=== PATIENT | female | born 1975 | race Caucasian/White ===

== ENCOUNTER → 2017-05-18 | Outpatient (CLI) | payer OTHER ==
--- NOTE | 2017-05-18 17:55 | Diagnostic Imaging Report ---
PROCEDURE: US Abdomen, limited. TECHNIQUE: Multiple real-time grayscale images were obtained over the abdomen in various projections. INDICATION: Right upper quadrant pain. Nausea and vomiting. FINDINGS: The pancreas is largely obscured by bowel gas. The liver is fairly homogeneous with hyperechogenicity and attenuation of the ultrasound beam suggestive of underlying hepatitis or fatty infiltration. There is no focal hepatic mass. Overall, liver measurement of 18 cm craniocaudal diagonal dimension is borderline enlarged at the upper limits of normal. The gallbladder demonstrates no stones, wall thickening or pericholecystic fluid. Sonographic Ryan's sign is reportedly negative. The right kidney is 9.8 cm in length with a 1.3 cm cyst seen in the upper pole. No fluid collection in the upper right abdomen seen. IMPRESSION: Prominent liver size with increased echogenicity may relate to fatty infiltration or hepatitis. Dictated by: Dictated on workstation # [id number]
--- NOTE | 2017-05-18 20:09 | Diagnostic Imaging Report ---
Bilateral screening mammogram. The current study was also evaluated with a Computer Aided Detection (CAD) system. INDICATION: Screening. No current complaints stated on the questionnaire. COMPARISON: None. This is a baseline exam. FINDINGS: The breasts are composed of heterogeneously dense parenchyma which may decrease mammographic sensitivity. No mass, architectural distortion, or suspicious cluster of calcifications seen. IMPRESSION: Dense breasts with no definite underlying focal lesion seen. Annual screening mammogram is recommended. ACR BI-RADS Category 2: Benign findings. Result letter will be mailed to the patient. Note: At least 10% of breast cancer is not imaged by mammography. Dictated by: Dictated on workstation # [id number]
== END ==
LOC: RAD 08:02
PROVIDERS: ATTEND Nurse Practitioner Adult Health
DX: R16.0 Hepatomegaly, not elsewhere classified (principal); Z12.31 Encounter for screening mammogram for malignant neoplasm of breast
CPT/HCPCS: 76705; 77067

== ENCOUNTER 2017-06-19 05:47 | Outpatient (CLI) | payer OTHER ==
[~2017-06-19] VITALS: Ht 175.3 cm; Wt 127.0 kg
[2017-06-19] MEDS ORDERED: DULO60CA6 PO ×2 (10:32)
[2017-06-19] MEDS ORDERED: HYDR-3816 PO ×2 (10:32)
[2017-06-19] MEDS ORDERED: ZOLP5TAB PO ×2 (10:32)
[2017-06-20] MEDS ORDERED: PANT40TA2 PO ×2 (11:07)
[2017-06-20] MEDS ORDERED: SUCR1TAB36 PO ×2 (11:07)
== END 2017-06-19 10:54 ==
LOC: PREOP 05:47
PROVIDERS: ATTEND Surgery
DX: Z01.818 Encounter for other preprocedural examination (principal); R11.2 Nausea with vomiting, unspecified; K21.9 Gastro-esophageal reflux disease without esophagitis

== ENCOUNTER 2017-06-20 09:15 | Day surgery (SDC) | payer OTHER ==
[~2017-06-20] VITALS: Ht 175.3 cm; Wt 127.0 kg
[~2017-06-20 09:15] MED LIST: DULO60CA6 PO; HYDR-3816 PO; ZOLP5TAB PO
[2017-06-20 09:20] VITALS: BP 129/97
[2017-06-20] MEDS ORDERED: LACTATED RINGERS 1,000 ML IV STA (09:26)
[2017-06-20] MEDS ORDERED: HURRICAINE EXT TUBE (BENZOCAINE) XX PRN (09:30)
[2017-06-20] MEDS ORDERED: proPOfol 200 MG/20 ML (DIPRIVAN) VIAL IV ONE ×2 (10:38→10:54)
[2017-06-20] MEDS ORDERED: LIDOCAINE PF 2% 5 ML (XYLOCAINE) VIAL ONE (10:38)
--- NOTE | 2017-06-20 10:48 | Progress Note-Pre Operative ---
Pre-Operative Progress Note H&P Reviewed The H&P was reviewed, patient examined and no changes noted. Date Seen by Provider: Jun 20, 2017 Time Seen by Provider: 10:47 Date H&P Reviewed: Jun 20, 2017 Time H&P Reviewed: 10:47 Pre-Operative Diagnosis: gerd, epigastric abdominal pain HOLLIE GUERRERO DO Jun 20, 2017 10:48
[2017-06-20] MEDS ORDERED: SUCR1TAB36 PO ×2 (11:07)
[2017-06-20] MEDS ORDERED: PANT40TA2 PO ×2 (11:07)
--- NOTE | 2017-06-20 11:11 | Progress Note-Post Operative ---
Post-Operative Progess Note Surgeon (s)/Event Specialist (s) Surgeon HOLLIE GUERRERO DO Event Specialist: na Pre-Operative Diagnosis gerd, epigastric abdominal pain Post-Operative Diagnosis antral ulcer and erosions, gastritis Procedure & Operative Findings Date of Procedure 06/20/17 Procedure Performed/Findings egd c biopsies Anesthesia Type per enamel finisher Estimated Blood Loss Estimated blood loss (mL): scant Specimens/Packing Specimens Removed antral ulcer, antrum HOLLIE GUERRERO DO Jun 20, 2017 11:11
--- NOTE | 2017-06-20 11:11 | Discharge Inst-Simple/Standard ---
Discharge Inst-Standard Patient Instructions/Follow Up Plan of Care/Instructions/FU: Follow up with Dr. Torres in 3 weeks Take medication as directed/. Activity as Tolerated: Yes Discharge Diet: No Restrictions CELINA AVILES APRN Jun 20, 2017 11:11
[2017-06-20 11:20] VITALS: BP 129/97
--- NOTE | 2017-06-20 11:46 | OPERATIVE REPORT ---
DATE OF SERVICE: 06/20/2017 PREOPERATIVE DIAGNOSIS: 1. Gastroesophageal reflux disease. 2. Epigastric abdominal pain. POSTOPERATIVE DIAGNOSIS: 1. Antral ulcers and erosions. 2. Gastritis. PROCEDURE: EGD with biopsies. SURGEON: Hollie Torres DO ANESTHESIA: Per HAIRSPRING ADJUSTER. ESTIMATED BLOOD LOSS: Scant. SPECIMENS: Antral ulcer and biopsy in antrum. INDICATIONS: The patient is a 42-year-old female who has been having epigastric abdominal pain, nausea, vomiting from time to time and reflux symptoms. She understands risks and benefits of procedure and wished to proceed with procedure. Consent was signed and in the chart. PROCEDURE: The patient was taken to the endoscopy suite, placed in left lateral recumbent position. Timeout was performed. Scope was inserted in mouth, down into esophagus, stomach and into the duodenum without difficulty. The duodenum had just very slight erythematous changes. There were no polyps, masses or ulcerations. Scope was slowly retracted back into the stomach. In the antrum, noting a small ulcer and then a couple small erosions, biopsy of the ulcer was obtained. Biopsy of the antrum was obtained as well. There were also erythematous changes throughout this area as well. Scope was retroflexed noting no other pathology. Scope was returned to its normal position, slowly withdrawn to the distal esophagus noting no polyps, masses or ulcerations. Scope was slowly retracted back until completely removed, noting no other pathology. RECOMMENDATIONS: The patient will be started on Protonix 40 mg twice a day for two weeks and then once a day from then on. She will also be started on Carafate 1 gram four times a day. Will have her return to the clinic in 3 weeks to discuss pathology and see how she is doing at that time. If any change in condition, she should be reevaluated at that time. Job ID: [id number] DocumentID: [id number] Dictated Date: 06/20/2017 11:13:38 Electrical Technician Date: 06/20/2017 11:45:57 Dictated By: HOLLIE TORRES DO
== END 2017-06-20 11:40 | disposition home or self-care (01) ==
LOC: ENDO 09:15
PROVIDERS: ATTEND Surgery
DX: K25.9 Gastric ulcer, unspecified as acute or chronic, without hemorrhage or perforation (principal); K29.70 Gastritis, unspecified, without bleeding; F32.9 Major depressive disorder, single episode, unspecified; F41.9 Anxiety disorder, unspecified; E66.01 Morbid (severe) obesity due to excess calories; Z68.41 Body mass index [BMI] 40.0-44.9, adult; G56.21 Lesion of ulnar nerve, right upper limb; Z79.899 Other long term (current) drug therapy

== ENCOUNTER 2018-01-19 23:50 | Emergency (ER) | payer OTHER ==
[~2018-01-19] VITALS: Ht 177.8 cm; Wt 133.8 kg
[~2018-01-19 23:50] MED LIST changes: +HYDR-34 PO; -HYDR-3816 PO; +PANT40TA2 PO; +SUCR1TAB36 PO
[2018-01-20] MEDS ORDERED: BENZ-13 PO (00:49)
--- NOTE | 2018-01-20 00:50 | ED Cough/URI ---
General Chief Complaint: Cough/Cold/Flu Symptoms Stated Complaint: COUGH,CONGESTION,BURNING IN CHEST Nursing Triage Note: PT PRESENTS TO ER WITH COMPLAINT OF COUGH, CONGESTION X1 WEEK. HAS BEEN SEEN 3 TIMES FOR SYMPTOMS. WAS PUT ON FLONASE AND ZYRTEC. SEEN EARLIER TODAY AND WAS PUT ON DOXYCYCLINE. Source: patient, other Exam Limitations: no limitations History of Present Illness Date Seen by Provider: Jan 20, 2018 Time Seen by Provider: 00:39 Initial Comments Patient resists ER by private conveyance with chief complaint of for one week she's had a nagging cough, cold that everybody in the family had. She finally broke and went to see a doctor at [facility] today and they started her on doxycycline. She had some sweats but notes objective fever last night. What concerns her tonight is she has had such a dry nagging cough she has not been able to get any sleep and wants know if we have anything for that. No history of COPD, asthma or tobaccoism. Allergies and Home Medications Allergies Coded Allergies: ciprofloxacin (Verified Allergy, Unknown, HIVES, 06/19/17) Home Medications Duloxetine HCl 60 Mg Capsule.dr, 60 MG PO HS, (Reported) Hydrocodone Bit/Acetaminophen 1 Each Tablet, 1 EACH PO TID PRN for PAIN-MILD TO MODERATE, (Reported) Pantoprazole Sodium 40 Mg Tablet.dr, 40 MG PO DAILY Take medication twice a day for 2 weeks and then once a day after that. Prescribed by: CELINA ISAACS on 06/20/17 1107 Sucralfate 1 Gm Tablet, 1 GM PO QID Prescribed by: CELINA ISAACS on 06/20/17 1107 Zolpidem Tartrate 5 Mg Tablet, 5 MG PO HS, (Reported) Patient Home Medication List Home Medication List Reviewed: Yes Constitutional: chills, diaphoresis, No fever, No malaise EENTM: No hearing loss, No ear pain Respiratory: cough, No phlegm, No short of breath Cardiovascular: No chest pain, No palpitations Gastrointestinal: No abdominal pain, No nausea Genitourinary: No discharge, No dysuria Past Nxpping-Zebibs-Lcwxkn Hx Patient Social History Alcohol Use: Denies Use Recreational Drug Use: No Smoking Status: Former Smoker Former Smoker, Quit: Jun 19, 2014 Recent Foreign Travel: No Contact w/Someone Who Travel: No Recent Infectious Disease Expo: No Recent Hopitalizations: No Seasonal Allergies Seasonal Allergies: No Surgeries History of Surgeries: Yes Surgeries: Hysterectomy, 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 Respiratory History of Respiratory Disorde: No Cardiovascular History of Cardiac Disorders: No Neurological History of Neurological Disord: No Gastrointestinal History of Gastrointestinal Di: Yes (N/V) Gastrointestinal Disorders: Gastroesophageal Reflux Musculoskeletal History of Musculoskeletal Dis: No Endocrine History of Endocrine Disorders: No Cancer History of Cancer: No Psychosocial History of Psychiatric Problem: Yes Behavioral Health Disorders: Anxiety, Depression Integumentary History of Skin or Integumenta: Yes Skin/Integumentary Disorders: Eczema Blood Transfusions History of Blood Disorders: No Physical Exam Vital Signs Vital Signs - First Documented 01/20/18 00:13 Temp 98.3 Pulse 84 Resp 20 B/P (MAP) 122/73 (89) Pulse Ox 94 O2 Delivery Room Air Capillary Refill : Less Than 3 Seconds General Appearance: WD/WN, no apparent distress Eyes: Bilateral Eye Normal Inspection, Bilateral Eye PERRL, Bilateral Eye EOMI HEENT: PERRL/EOMI, pharynx normal Neck: non-tender, supple, normal inspection Respiratory: chest non-tender, lungs clear, normal breath sounds, no respiratory distress, no accessory muscle use Cardiovascular: normal peripheral pulses, regular rate, rhythm, no edema Progress/Results/Core Measures Suspected Sepsis Recent Fever Within 48 Hours: No Infection Criteria Present: None New/Unexplained Altered Menta: No Sepsis Screen: No Definite Risk Sepsis Diagnosis: SIRS Temperature:98.3 Pulse: 84 Respiratory Rate: 20 Blood Pressure 122 /73 Mean: 89 Results/Orders Vital Signs/I&O Vital Sign - Last 12Hours 01/20/18 00:13 Temp 98.3 Pulse 84 Resp 20 B/P (MAP) 122/73 (89) Pulse Ox 94 O2 Delivery Room Air Capillary Refill : Less Than 3 Seconds Blood Pressure Mean: 89 Departure Impression Impression: Primary Impression: Upper respiratory infection Qualified Codes: J06.9 - Acute upper respiratory infection, unspecified Disposition: 01 HOME, SELF-CARE Condition: Stable Departure-Patient Inst. Decision time for Depature: 00:48 Referrals: ES ELIAS DO (PCP) Primary Care Physician JASIEL JACOBS (Family) Primary Care Physician Patient Instructions: Bacterial Upper Respiratory Infection, Adult (DC) Add. Discharge Instructions: Drink lots of fluids. Get a humidifier. Use Vicks or Mentholatum. Continue to use the Flonase, Zyrtec and Benadryl as needed. Use the doxycycline as it was prescribed. He can curing pickling packer the Tessalon Perles at the pharmacy and take one capsule every 6 hours as needed for cough. Keep the heat turned down in the house. Try [id number] cough drops such as [place]. All discharge instructions reviewed with patient and/or family. Voiced understanding. Scripts Benzonatate (Tessalon Perle) 100 Mg Capsule 100 MG PO Q6H Y for COUGH, #30 CAP 0 Refills Prov: CONCEPCION PACHECO 01/20/18 CONCEPCION PACHECO Jan 20, 2018 00:50
[2018-01-20 00:54] VITALS: BP 122/73
== END 2018-01-20 00:54 | disposition home or self-care (01) ==
LOC: EDUNIT# 23:50 → ER 23:53
DX: J06.9 Acute upper respiratory infection, unspecified (principal); F41.9 Anxiety disorder, unspecified; F32.9 Major depressive disorder, single episode, unspecified; K21.9 Gastro-esophageal reflux disease without esophagitis; Z90.710 Acquired absence of both cervix and uterus; Z98.51 Tubal ligation status; Z87.891 Personal history of nicotine dependence; Z88.1 Allergy status to other antibiotic agents
CPT/HCPCS: 99282

== ENCOUNTER 2018-04-06 21:05 | Outpatient (CLI) | payer OTHER ==
[~2018-04-06 21:05] MED LIST changes: +BENZ-13 PO
== END 2018-04-07 06:37 | disposition home or self-care (01) ==
LOC: SLEEP 21:05
PROVIDERS: ATTEND Nurse Practitioner Community Health
DX: G47.33 Obstructive sleep apnea (adult) (pediatric) (principal)
CPT/HCPCS: 95810

== ENCOUNTER 2018-05-31 09:37 | Observation (INO) | payer OTHER ==
[2018-05-31] VITALS (9 sets, daily range): BP systolic 119–143; BP diastolic 84–113
[~2018-05-31] VITALS: Ht 175.3 cm; Wt 131.5 kg
--- OUTSIDE RECORDS SUMMARY | 2018-05-31 09:42 | XMS REPORT ---
Author Author CAITLYN MEJIAS Organization [facility] Address [address] [place] [address] Care Team Providers Care Finding Fastener Name Role Phone CAITLYN MEJAIS Unavailable PROBLEMS Type Condition ICD9-CM Code DAY01-TL Code Onset Dates Condition Status SNOMED Code Problem Irritable bowel syndrome with diarrhea K58.0 Active 502458679 Problem Migraine without aura and with status migrainosus, not intractable G43.001 Active 07464890 Problem Primary insomnia F51.01 Active 4306333 Problem Depression, unspecified depression type F32.9 Active 18242292 Problem Low back pain M54.5 Active 129464120 Problem Observed sleep apnea G47.30 Active 15244423 Problem Other chronic pain G89.29 Active 20239099 Problem Dental caries K02.9 Active 15999253 Problem Pain of left heel M79.672 Active [id number] Problem Mood disorder F39 Active 53140976 Problem Morbid obesity due to excess calories E66.01 Active 878117776 ALLERGIES No Information ENCOUNTERS Encounter Location Date Diagnosis [facility] [id number] [place] [address] 48405- 6906 Jun, [facility] [id number] [place] [address] 17007- 5509 May, Costochondritis M94.0 [facility] [address] 9[address]64- 4215 May, Low back pain M54.5 and Primary insomnia F51.01 [facility] [address] 14623- 5536 Apr, Vaginal candidiasis B37.3 [facility] [id number] [place] [address] 14496 -7686 Apr, Vaginal candidiasis B37.3 [facility] [id number] [place] [address] 76450 -[phone] 11 Apr, 2018 Acute non-recurrent maxillary sinusitis J01.00 [facility] [id number] [place] [address] 75159- 5010 Apr, [facility] [id number] [place] [address] 64752- 3284 06 Apr, 2018 Primary insomnia F51.01 [facility] [id number] [place] [address] 81498 -9623 05 Apr, 2018 Sore throat J02.9 ; Seasonal allergic rhinitis, unspecified trigger J30.2 and BMI 40.0-44.9, adult Z68.41 [facility] [id number] [place] [address] 01241- 2936 04 Apr, 2018 Low back pain M54.5 [facility] [address] 34846- 2216 Apr, Pain, dental K08.89 [facility] [address] [id number] March, Dental caries K02.9 [facility] [id number] [place] [address] 66196- 4085 March, [facility] [id number] [place] [address] 19303- 2917 March, [facility] [id number] [place] [address] 20841- 6497 March, [facility] [id number] [place] [address] 99743- 7835 March, Low back pain M54.5 and Primary insomnia F51.01 [facility] [id number] [place] [address] [phone] March, Dental examination Z01.20 [facility] [id number] [place] [address] 60649- 6542 Feb, [facility] [address] [place] [address] 55795- 2327 Feb, Low back pain M54.5 [facility] [id number] [place] [address] [phone] Feb, Dental examination Z01.20 [facility] [id number] [place] [address] 30564- 0226 Feb, Primary insomnia F51.01 [facility] [address] 37618- 7600 Jan, BMI 40.0-44.9, adult Z68.41 and Observed sleep apnea G47.30 [facility] [address] 69284- 4369 Jan, Dental examination Z01.20 [facility] [id number] [place] [address] 41126- 2312 Jan, Dental examination Z01.20 [facility] [id number] [place] [address] 00715- 0444 Jan, Low back pain M54.5 [facility] [id number] [place] [address] 63767- 1790 Jan, Acute laryngopharyngitis J06.0 and BMI 40.0-44.9, adult Z68.41 [facility] [id number] [place] [address] 77223 -7982 08 Jan, 2018 Seasonal allergic rhinitis, unspecified trigger J30.2 and BMI 40.0-44.9, adult Z68.41 [facility] [id number] [place] [address] 24522 -4845 07 Jan, 2018 Viral URI J06.9 ; Seasonal allergic rhinitis, unspecified trigger J30.2 and BMI 40.0-44.9, adult Z68.41 [facility] [id number] [place] [address] 43813- 3765 Jan, [facility] [id number] [place] [address] 58111- 8298 Jan, Primary insomnia F51.01 and Cough R05 [facility] [id number] [place] [address] 70488 -6335 Jan, Viral URI J06.9 [facility] [address] 11091- 9385 Jan, Sacral pain M53.3 [facility] [id number] [place] [address] 42269 -8440 Jan, Nasal congestion R09.81 and BMI 40.0-44.9, adult Z68.41 [facility] [address] 89406- 0505 Dec, [facility] [address] 71576- 6315 Dec, Low back pain M54.5 [facility] [id number] [place] [address] 00244- 9650 Dec, Primary insomnia F51.01 [facility] [address] 18893- 2624 Nov, [facility] [id number] [place] [address] 25782- 7584 Nov, Migraine without aura and with status migrainosus, not intractable G43.001 ; Low back pain M54.5 and Primary insomnia F51.01 [facility] [id number] [place] [address] 97977- 7664 Nov, Routine gynecological examination Z01.419 ; Routine screening for STI (sexually transmitted infection) Z11.3 and HPV in female B97.7 [facility] [id number] [place] [address] 25309- 6185 Oct, Low back pain M54.5 ; Other chronic pain G89.29 ; Pain in right hip M25.551 ; Pain in left hip M25.552 ; Pain in right knee M25.561 and Pain in left knee M25.562 [facility] [id number] [place] [address] 42056- 2181 13 Oct, 2017 Primary insomnia F51.01 [facility] [id number] [place] [address] 67590- 5326 Oct, Low back pain M54.5 [facility] [address] 42204- 6477 Sep, Encounter for immunization Z23 [facility] [address] 46541- 5598 Aug, Low back pain M54.5 and Primary insomnia F51.01 [facility] [id number] [place] [address] 66516- 5165 10 Aug, 2017 Low back pain M54.5 and Primary insomnia F51.01 [facility] [address] 38158 -4432 05 Aug, 2017 Gastroenteritis and colitis, viral A08.4 [facility] [address] 03341- 1461 04 Aug, 2017 [facility] [id number] [place] [address] 90229- 1248 03 Aug, 2017 Hot flashes R23.2 ; Morbid obesity due to excess calories E66.01 and Mood disorder F39 [facility] [id number] [place] [address] 80020- 8685 02 Aug, 2017 Hot flashes R23.2 ; Morbid obesity due to excess calories E66.01 and Mood disorder F39 [facility] [id number] [place] [address] 62166- 0455 07 Jul, 2017 Low back pain M54.5 [facility] [id number] [place] [address] 11310 -1447 06 Jul, 2017 Lipoma of right lower extremity D17.23 and Acute left- sided thoracic back pain M54.6 [facility] [id number] [place] [address] 66615- 4139 Jun, Low back pain M54.5 [facility] [id number] [place] [address] 75228- 1107 May, Low back pain M54.5 [facility] [address] 14632- 2501 Apr, Right upper quadrant pain R10.11 ; Depression, unspecified depression type F32.9 ; Low back pain M54.5 ; Primary insomnia F51.01 ; Irritable bowel syndrome with diarrhea K58.0 ; Migraine without aura and with status migrainosus, not intractable G43.001 and Breast cancer screening Z12.39 [facility] [id number] [place] [address] 11932- 5266 Apr, [facility] [address] 56671- 7344 Apr, Migraine without aura and with status migrainosus, not intractable G43.001 [facility] [id number] [place] [address] 14471- 6623 March, [facility] [id number] [place] [address] 26059- 9585 Feb, [facility] [id number] [place] [address] 56675- 1839 Feb, [facility] [id number] [place] [address] 85535 -6629 Feb, Sore throat J02.9 and Acute upper respiratory infection, unspecified J06.9 [facility] [id number] [place] [address] 30748- 5321 Feb, Dental examination Z01.20 and Supereruption K00.6 [facility] [id number] [place] [address] 54634 -8923 Feb, Needlestick injury accident W27.3XXA and Employee exposure to blood Z57.8 [facility] [id number] [place] [address] 23378- 9776 05 Feb, 2017 Dental examination Z01.20 [facility] [id number] [place] [address] 81740- 1144 28 Dec, 2016 Low back pain M54.5 [facility] [address] 71410- 4228 27 Dec, 2016 Acute upper respiratory infection, unspecified J06.9 and Other viral agents as the cause of diseases classified elsewhere B97.89 [facility] [address] [id number] Dec, 2016 Dental examination Z01.20 [facility] [id number] [place] [address] 31589 -7929 16 Dec, 2016 Gastroenteritis K52.9 [facility] [address] 87406- 6527 10 Dec, 2016 Plantar fasciitis of left foot M72.[address] 63224- 5306 01 Dec, 2016 Low back pain M54.5 [facility] [id number] [place] [address] 67509- 8229 Nov, Depression, unspecified depression type F32.9 ; Low back pain M54.5 ; Primary insomnia F51.01 ; Irritable bowel syndrome with diarrhea K58.0 ; Pain of left heel M79.672 and Migraine without aura and with status migrainosus, not intractable G43.[address] 99614- 4234 Nov, Acute pain of right knee M25.561 and Primary insomnia F51.01 [facility] [address] [place] [id number] [place] [address] 85437- 7870 Oct, [facility] [address] [place], [place] [address] [address]- 4441 Oct, Urinary pain R30.9 [facility] [id number] [place] [address] 27748 -0256 Oct, Acute recurrent maxillary sinusitis J01.01 [facility] [id number] [place] [address] 79242- 4118 Sep, Acute pain of right knee M25.561 [facility] [address] 20075- 0702 Sep, [facility] [address] 07013- 7704 Sep, Arthralgia, unspecified joint M25.50 [facility] [address] 24597- 6992 Sep, Hives L50.9 and Arthralgia, unspecified joint M25.50 [facility] [id number] [place] [address] 29752- 1089 16 Sep, 2016 [facility] [id number] [place] [address] 36809- 1056 15 Sep, 2016 Depression, unspecified depression type F32.9 ; Primary insomnia F51.01 ; Irritable bowel syndrome with diarrhea K58.0 ; Encounter to establish care Z76.89 and Increased urinary frequency R35.0 [facility] [id number] [place] [address] 52018 -8850 05 Sep, 2016 Acute suppurative otitis media of right ear without spontaneous rupture of tympanic membrane, recurrence not specified H66.001 and Acute non-recurrent maxillary sinusitis J01.00 [facility] [id number] [place] [address] 25293 -7777 03 Sep, 2016 Cough R05 [facility] [id number] [place] [address] [id number] Aug, Encounter for immunization Z23 [facility] [place] [address] 86737- 2546 Aug, [facility] [address] [facility] [id number] [address] -[address]46 Aug, Kyphosis of cervical region, unspecified kyphosis type M40.202 [address] [id number] Jul, Low back pain M54.5 and Depression, unspecified depression type F32.9 [facility] [address] [place] [address] [id number] [phone] Jun, Strep throat J02.0 [address] [place] [address] [id number] Jun, Dental examination Z01.20 [address] [id number] May, [place] [id number] [place] [address] [phone] Apr, [place] [id number] [place] [address] [id number] March, Depression, unspecified depression type F32.9 [address] [place] [address] [id number] Feb, Routine lab draw Z00.00 ; Obesity E66.9 and Swelling of ankle M25.[address] [place] [address] [id number] Jan, GE (gastroenteritis) K52.9 [address] [place] [address] [id number] Nov, Sinusitis J32.9 ; Allergic rhinitis J30.9 and Otitis externa, left H60.[address] [place] [address] [phone] Sep, Cough R05 IMMUNIZATIONS No Known Immunizations SOCIAL HISTORY Never Assessed REASON FOR VISIT Controlled Med Refill PLAN OF CARE VITAL SIGNS MEDICATIONS Medication Instructions Dosage Frequency Start Date End Date Duration Status Hydrocodone-Acetaminophen 7.5-325 MG Orally 3 times a day 1 tablet as needed 8h Jan, 28 days Active RESULTS No Results PROCEDURES No Known procedures INSTRUCTIONS MEDICATIONS ADMINISTERED No Known Medications MEDICAL (GENERAL) HISTORY Type Description Date Medical History irritable bowel syndrome Medical History depression Medical History anxiety Medical History chronic idiopathic hives Surgical History tubal ligation 1999 Surgical History partial hysterectomy s/p enlarged uterus due to fibroids, excessive bleeding 2001 Surgical History colonoscopy--polyps 2011 Hospitalization History childbirth, surgeries Hospitalization History kidney infection during 1993
--- OUTSIDE RECORDS SUMMARY | 2018-05-31 09:43 | XMS REPORT ---
Author Author XIANG JERNIGAN [facility] Address [address] [place] [address] Care Team Providers Care Training And Development Assistant Name Role Phone XIANG JERNIGAN Unavailable PROBLEMS Type Condition ICD9-CM Code AAA02-SO Code Onset Dates Condition Status SNOMED Code Problem Irritable bowel syndrome with diarrhea K58.0 Active 002226235 Problem Migraine without aura and with status migrainosus, not intractable G43.001 Active 21765811 Problem Primary insomnia F51.01 Active 9963018 Problem Depression, unspecified depression type F32.9 Active 72734429 Problem Low back pain M54.5 Active 921023624 Problem Observed sleep apnea G47.30 Active 99865294 Problem Other chronic pain G89.29 Active 94071302 Problem Dental caries K02.9 Active 26771746 Problem Pain of left heel M79.672 Active 5403982893530539 Problem Mood disorder F39 Active 99678041 Problem Morbid obesity due to excess calories E66.01 Active 295491213 ALLERGIES Substance Reaction Event Type Date Status Ciprofloxacin hives Drug Allergy Jan, Active ENCOUNTERS Encounter Location Date Diagnosis [facility] [id number] [address] Jun, [facility] [id number] [place] [address]68[address] 9739 May, Costochondritis M94.0 [facility] [id number] [address] May, Low back pain M54.5 and Primary insomnia F51.01 [facility] [address] [address] Apr, Vaginal candidiasis B37.3 [facility] [address] [address] Apr, Vaginal candidiasis B37.3 [facility] [id number] [place] [address] Apr, Acute non-recurrent maxillary sinusitis J01.00 [facility] [id number] [place] [address] 33225- 9813 Apr, [facility] [address] [address] Apr, Primary insomnia F51.01 [facility] [id number] [place] [address] 58702 [address]0185 05 Apr, 2018 Sore throat J02.9 ; Seasonal allergic rhinitis, unspecified trigger J30.2 and BMI 40.0-44.9, adult Z68.41 [facility] [id number] [place] [address] 95301- 7983 Apr, Low back pain M54.5 [facility] [id number] [place] [address] 17601- 1324 Apr, Pain, dental K08.89 [facility] [address] [id number] March, Dental caries K02.9 [facility] [id number] [place] [address] 80006- 8412 March, [facility] [id number] [place] [address] 33051- 7285 March, [facility] [id number] [place] [address] 87094- 0835 March, [facility] [address] [address] March, Low back pain M54.5 and Primary insomnia F51.01 [facility] [id number] [place] [address] [id number] March, Dental examination Z01.20 [facility] [address] [place] [address] Feb, [facility] [address] [address] Feb, Low back pain M54.5 [facility] [id number] [place] [address] [id number] Feb, Dental examination Z01.20 [facility] [address] [address] Feb, Primary insomnia F51.01 [place] [address] [address] Jan, BMI 40.0-44.9, adult Z68.41 and Observed sleep apnea G47.30 [place] [address] [address]- [address]177 Jan, Dental examination Z01.20 [facility] [address] [address] Jan, Dental examination Z01.20 [facility] [address] 0[address]23- 4295 Jan, Low back pain M54.5 [facility] [id number] [place] [address] 46176- 6168 Jan, Acute laryngopharyngitis J06.0 and BMI 40.0-44.9, adult Z68.41 [facility] [id number] [place] [address] 35650 -5661 Jan, Seasonal allergic rhinitis, unspecified trigger J30.2 and BMI 40.0-44.9, adult Z68.41 [facility] [address] [address] 07 Jan, 2018 Viral URI J06.9 ; Seasonal allergic rhinitis, unspecified trigger J30.2 and BMI 40.0-44.9, adult Z68.41 [place] [id number] [place] [address] 96475- 6628 Jan, [place] [id number] [place] [address] 75228- 6021 Jan, Primary insomnia F51.01 and Cough R05 [facility] [id number] [place] [address] 87889 -3212 Jan, Viral URI J06.9 [place] [address] 61205- [address]70 Jan, Sacral pain M53.3 [facility] [address] [address] Jan, Nasal congestion R09.81 and BMI 40.0-44.9, adult Z68.41 [place] [address] 87555- 3563 Dec, [place] [address] 39227- [address]67 Dec, Low back pain M54.5 [place] [address] 82220- [address]88 Dec, Primary insomnia F51.01 [place] [id number] [place] [address] 37238- 7063 Nov, [place] [id number] [place] [address] 11330- 2776 Nov, Migraine without aura and with status migrainosus, not intractable G43.001 ; Low back pain M54.5 and Primary insomnia F51.01 [place] [id number] [place] [address] 15492- 0410 Nov, Routine gynecological examination Z01.419 ; Routine screening for STI (sexually transmitted infection) Z11.3 and HPV in female B97.7 [place] [id number] [place] [address] 19908- 0055 Oct, Low back pain M54.5 ; Other chronic pain G89.29 ; Pain in right hip M25.551 ; Pain in left hip M25.552 ; Pain in right knee M25.561 and Pain in left knee M25.562 [place] [id number] [place] [address] 04846- 7792 13 Oct, 2017 Primary insomnia F51.01 [place] [address] 61387- 4724 Oct, Low back pain M54.5 [place] [address] 93426- 4343 Sep, Encounter for immunization Z23 [place] [address] 99972- 1376 Aug, Low back pain M54.5 and Primary insomnia F51.01 [place] [address] 47065- 7570 Aug, Low back pain M54.5 and Primary insomnia F51.01 [facility] [address] [address]39 [address] 05 Aug, 2017 Gastroenteritis and colitis, viral A08.4 [place] [id number] [place] [address] 44835- 8562 04 Aug, 2017 [place] [id number] [place] [address] 93959- 9693 03 Aug, 2017 Hot flashes R23.2 ; Morbid obesity due to excess calories E66.01 and Mood disorder F39 [place] [id number] [place] [address] 34855- 2447 02 Aug, 2017 Hot flashes R23.2 ; Morbid obesity due to excess calories E66.01 and Mood disorder F39 [place] [id number] [place] [address] 86879- 5044 07 Jul, 2017 Low back pain M54.5 [facility] [id number] [place] [address] 40530 -3887 Jul, Lipoma of right lower extremity D17.23 and Acute left- sided thoracic back pain M54.6 [place] [id number] [place] [address] 75874- 7379 Jun, Low back pain M54.5 [place] [id number] [place] [address] 58952- 5648 May, Low back pain M54.5 [place] [id number] [place] [address] 65550- 7387 Apr, Right upper quadrant pain R10.11 ; Depression, unspecified depression type F32.9 ; Low back pain M54.5 ; Primary insomnia F51.01 ; Irritable bowel syndrome with diarrhea K58.0 ; Migraine without aura and with status migrainosus, not intractable G43.001 and Breast cancer screening Z12.39 [place] [id number] [place] [address] 55569- 7445 Apr, [place] [id number] [place] [address] 34209- 1741 Apr, Migraine without aura and with status migrainosus, not intractable G43.001 [place] [id number] [place] [address] 14919- 3456 March, [place] [id number] [place] [address] 71471- 6935 Feb, [place] [id number] [place] [address] 77822- 5574 Feb, [facility] [id number] [place] [address] 01262 -0242 Feb, Sore throat J02.9 and Acute upper respiratory infection, unspecified J06.9 [place] [id number] [place] [address] 78074- 5858 Feb, Dental examination Z01.20 and Supereruption K00.6 [facility] [address] [place] [address] Feb, Needlestick injury accident W27.3XXA and Employee exposure to blood Z57.8 [facility] [address] 02603- 3030 Feb, Dental examination Z01.20 [facility] [id number] [place] [address] 94640- 7359 28 Dec, 2016 Low back pain M54.5 [place] [address] 50551- 5856 27 Dec, 2016 Acute upper respiratory infection, unspecified J06.9 and Other viral agents as the cause of diseases classified elsewhere B97.89 [facility] [address] [id number] Dec, 2016 Dental examination Z01.20 [facility] [address] 33120 -4898 16 Dec, 2016 Gastroenteritis K52.9 [place] [address] 22706- 8052 10 Dec, 2016 Plantar fasciitis of left foot M72.2 [place] [address] 17348- 2863 01 Dec, 2016 Low back pain M54.5 [place] [id number] [place] [address] 79354- 8924 Nov, Depression, unspecified depression type F32.9 ; Low back pain M54.5 ; Primary insomnia F51.01 ; Irritable bowel syndrome with diarrhea K58.0 ; Pain of left heel M79.672 and Migraine without aura and with status migrainosus, not intractable G43.001 [place] [id number] [place] [address] 84998- 4493 Nov, Acute pain of right knee M25.561 and Primary insomnia F51.01 [place] [address] 61959- 8568 Oct, [facility] [address] [place] [address] 58579- 5969 Oct, Urinary pain R30.9 [facility] [id number] [place] [address] 98439 -4219 Oct, Acute recurrent maxillary sinusitis J01.01 [facility] [address] 76696- 0660 Sep, Acute pain of right knee M25.561 [place] [id number] [place] [address] 09401- 6939 Sep, [facility] [address] 47231- 6988 Sep, Arthralgia, unspecified joint M25.50 [place] [address] 86448- 7427 Sep, Hives L50.9 and Arthralgia, unspecified joint M25.50 [facility] [id number] [place] [address] 97000- 2462 16 Sep, 2016 [place] [id number] [place] [address] 27240- 6348 15 Sep, 2016 Depression, unspecified depression type F32.9 ; Primary insomnia F51.01 ; Irritable bowel syndrome with diarrhea K58.0 ; Encounter to establish care Z76.89 and Increased urinary frequency R35.0 [facility] [id number] [place] [address] 61741 -6667 05 Sep, 2016 Acute suppurative otitis media of right ear without spontaneous rupture of tympanic membrane, recurrence not specified H66.001 and Acute non-recurrent maxillary sinusitis J01.00 [facility] [address] [place] [address] 68851 -2262 03 Sep, 2016 Cough R05 [facility] [id number] [place] [address] [id number] Aug, Encounter for immunization Z23 [facility] [address] [facility] [id number] [address] Aug, [facility] [id number] [place] [address] 461604 -7472 Aug, Kyphosis of cervical region, unspecified kyphosis type M40.202 [id number] [place] [address] [id number] Jul, Low back pain M54.5 and Depression, unspecified depression type F32.9 [facility] [address] [place] [address] [id number] [place] [address] [id number] Jun, Strep throat J02.0 [address] [id number] [place] [address] [id number] Jun, Dental examination Z01.[address] [id number] May, [address] [id number] Apr, [address] [id number] [place] [address] [phone] March, Depression, unspecified depression type F32.9 [address] [id number] [place] [address] [id number] Feb, Routine lab draw Z00.00 ; Obesity E66.9 and Swelling of ankle M25.[address] [id number] Jan, GE (gastroenteritis) K52.9 [place] [id number] [place] [address] [id number] Nov, Sinusitis J32.9 ; Allergic rhinitis J30.9 and Otitis externa, left H60.92 [place] [id number] [place] [address] [phone] Sep, Cough R05 IMMUNIZATIONS No Known Immunizations SOCIAL HISTORY Never Assessed REASON FOR VISIT congestion/nausea- chest tightness and dry cough JStrasserRN PLAN OF CARE Activity Details Follow Up prn Reason: VITAL SIGNS Height 69 in 2018-01-17 Weight 292.4 lbs 2018-01-17 Temperature 98.9 degrees Fahrenheit 2018-01-17 Heart Rate 78 bpm 2018-01-17 Respiratory Rate 20 2018-01-17 BMI 43.18 kg/m2 2018-01-17 Blood pressure systolic 128 mmHg 2018-01-17 Blood pressure diastolic 84 mmHg 2018-01-17 MEDICATIONS Medication Instructions Dosage Frequency Start Date End Date Duration Status Tessalon Perles 100 mg Orally Three times a day 1 capsule as needed 8h Jan, Active Cymbalta 30 MG Orally Once a day 1 capsule 24h March, Active Ketorolac Tromethamine 10 mg Orally every 6 hrs 1 tablet with food or milk as needed 6h Jan, Jan, 5 day(s) Active Ambien 10 mg Orally Once a day 1 tablet at bedtime as needed 24h Nov, 28 days Active PredniSONE 20 mg Orally Once a day 2 tablets 24h Jan, Jan, 05 days Not-Taking Zyrtec Allergy 10 MG Orally Once a day 1 tablet 24h Jan, Feb, 30 day(s) Active Kpwoohruyf-IDIH-Uikuvjyy 50-325-40 MG Orally every 4 hrs 2 at onset then one every four max 6 daily 4h 25 Sep, 2016 Active Bentyl 10 mg Orally 4 times a day 1 tablet 6h 15 Sep, 2016 Not- Taking Protonix 40 mg Orally Once a day 1 tablet 24h Aug, 30 day(s) Active Cymbalta 60 mg Orally Once a day 1 capsule 24h Aug, 30 day(s) Active Calcium + D3 600-200 MG-UNIT Orally 2 times a day 1 tablet with a meal 12h Active Flonase 50 MCG/ACT Nasally twice a day 1 spray in each nostril 12h Jan, 30 day(s) Active Zofran ODT 4 MG Orally every 8 hrs 1 tablet on the tongue and allow to dissolve 8h Jan, 7 days Active Hydrocodone-Acetaminophen 7.5-325 MG Orally 3 times a day 1 tablet as needed 8h Dec, 28 days Active Fish Oil 1000 MG Orally 2 times a day 1 capsule 12h Active RESULTS No Results PROCEDURES No Known [...]
--- OUTSIDE RECORDS SUMMARY | 2018-05-31 09:43 | XMS REPORT ---
Author Author TOMAS VELÁZQUEZ Organization [facility] Address [address] [place] [address] Care Team Providers Care Bit Shaver Name Role Phone TOMAS VELÁZQUEZ Unavailable PROBLEMS Type Condition ICD9-CM Code QXX17-NK Code Onset Dates Condition Status SNOMED Code Problem Irritable bowel syndrome with diarrhea K58.0 Active 365306480 Problem Migraine without aura and with status migrainosus, not intractable G43.001 Active 02371268 Problem Primary insomnia F51.01 Active 7635510 Problem Depression, unspecified depression type F32.9 Active 96454512 Problem Low back pain M54.5 Active 106197446 Problem Observed sleep apnea G47.30 Active 96919011 Problem Other chronic pain G89.29 Active 18060297 Problem Dental caries K02.9 Active 74759112 Problem Pain of left heel M79.672 Active 0665463885144166 Problem Mood disorder F39 Active 06048180 Problem Morbid obesity due to excess calories E66.01 Active 217809814 ALLERGIES Substance Reaction Event Type Date Status Ciprofloxacin hives Drug Allergy Jan, Active ENCOUNTERS Encounter Location Date Diagnosis [facility] [address] [address] Jun, [facility] [id number] [place] [address] 21654- 1370 May, Costochondritis M94.0 [facility] [address] [address] May, Low back pain M54.5 and Primary insomnia F51.01 [facility] [address] [address] Apr, Vaginal candidiasis B37.3 [facility] [id number] [place] [address] 78607 -2212 Apr, Vaginal candidiasis B37.3 [facility] [id number] [place] [address] 63172 -2672 Apr, Acute non-recurrent maxillary sinusitis J01.00 [facility] [id number] [place] [address] 61711- 3246 Apr, [facility] [address] [address]- [address] Apr, Primary insomnia F51.01 [facility] [id number] [place] [address] 81695 -7861 05 Apr, 2018 Sore throat J02.9 ; Seasonal allergic rhinitis, unspecified trigger J30.2 and BMI 40.0-44.9, adult Z68.41 [facility] [id number] [place] [address] 96951- 5075 Apr, Low back pain M54.5 [facility] [id number] [place] [address] 55755- 0656 Apr, Pain, dental K08.89 [facility] [address] [id number] March, Dental caries K02.9 [facility] [id number] [place] [address] 17174- 9352 March, [facility] [id number] [place] [address] 88510- 5356 March, [facility] [id number] [place] [address] 20291- 5408 March, [facility] [address] [address]- [address] March, Low back pain M54.5 and Primary insomnia F51.01 [facility] [id number] [place] [address] [id number] March, Dental examination Z01.20 [facility] [address] [place] [address] Feb, [facility] [address] 94678- [address]235 Feb, Low back pain M54.5 [facility] [id number] [place] [address] [id number] Feb, Dental examination Z01.20 [facility] [address] [address]- [address] Feb, Primary insomnia F51.01 [place] [facility] [address] [address]- 7511 Jan, BMI 40.0-44.9, adult Z68.41 and Observed sleep apnea G47.30 [facility] [address] [address]- 7022 Jan, Dental examination Z01.20 [facility] [address] 72876- 1025 Jan, Dental examination Z01.20 [facility] [address] 78361- 1645 Jan, Low back pain M54.5 [facility] [id number] [place] [address] 84936- 0307 Jan, Acute laryngopharyngitis J06.0 and BMI 40.0-44.9, adult Z68.41 [facility] [id number] [place] [address] 70695 -2927 Jan, Seasonal allergic rhinitis, unspecified trigger J30.2 and BMI 40.0-44.9, adult Z68.41 [facility] [address] 35854 -6[address] 07 Jan, 2018 Viral URI J06.9 ; Seasonal allergic rhinitis, unspecified trigger J30.2 and BMI 40.0-44.9, adult Z68.41 [facility] [id number] [place] [address] 47103- 9291 Jan, [place] [id number] [place] [address] 02958- 0574 Jan, Primary insomnia F51.01 and Cough R05 [facility] [id number] [place] [address] 04421 -3534 Jan, Viral URI J06.9 [facility] [facility] [address] 93969- 7260 Jan, Sacral pain M53.3 [facility] [address] 14092 -6723 Jan, Nasal congestion R09.81 and BMI 40.0-44.9, adult Z68.41 [facility] [address] 21229- 5369 Dec, [place] [address] 20969- 4256 Dec, Low back pain M54.5 [facility] [address] 14661- 3964 Dec, Primary insomnia F51.01 [facility] [id number] [place] [address] 07019- 2266 Nov, [facility] [id number] [place] [address] 91474- 1961 Nov, Migraine without aura and with status migrainosus, not intractable G43.001 ; Low back pain M54.5 and Primary insomnia F51.01 [facility] [id number] [place] [address] 87034- 5841 Nov, Routine gynecological examination Z01.419 ; Routine screening for STI (sexually transmitted infection) Z11.3 and HPV in female B97.7 [facility] [id number] [place] [address] 65967- 3135 Oct, Low back pain M54.5 ; Other chronic pain G89.29 ; Pain in right hip M25.551 ; Pain in left hip M25.552 ; Pain in right knee M25.561 and Pain in left knee M25.562 [facility] [facility] [id number] [place] [address] 99272- 4494 13 Oct, 2017 Primary insomnia F51.01 [place] [address] 17509- 7106 Oct, Low back pain M54.5 [place] [address] 94310- 7748 Sep, Encounter for immunization Z23 [facility] [address] 47439- 9216 Aug, Low back pain M54.5 and Primary insomnia F51.01 [place] [address] 06356- 2589 Aug, Low back pain M54.5 and Primary insomnia F51.01 [facility] [address] 64298 -5073 05 Aug, 2017 Gastroenteritis and colitis, viral A08.4 [place] [id number] [place] [address] 85908- 7264 04 Aug, 2017 [place] [id number] [place] [address] 98115- 3229 03 Aug, 2017 Hot flashes R23.2 ; Morbid obesity due to excess calories E66.01 and Mood disorder F39 [place] [id number] [place] [address] 40334- 5204 02 Aug, 2017 Hot flashes R23.2 ; Morbid obesity due to excess calories E66.01 and Mood disorder F39 [facility] [id number] [place] [address] 79303- 3969 07 Jul, 2017 Low back pain M54.5 [facility] [id number] [place] [address] 55133 -2967 Jul, Lipoma of right lower extremity D17.23 and Acute left- sided thoracic back pain M54.6 [facility] [place] [id number] [place] [address] 89571- 0443 Jun, Low back pain M54.5 [facility] [id number] [place] [address] 73508- 4422 May, Low back pain M54.5 [facility] [place] [id number] [place] [address] 76736- 5542 Apr, Right upper quadrant pain R10.11 ; Depression, unspecified depression type F32.9 ; Low back pain M54.5 ; Primary insomnia F51.01 ; Irritable bowel syndrome with diarrhea K58.0 ; Migraine without aura and with status migrainosus, not intractable G43.001 and Breast cancer screening Z12.39 [place] [id number] [place] [address] 59938- 7670 Apr, [facility] [place] [id number] [place] [address] 77386- 9482 Apr, Migraine without aura and with status migrainosus, not intractable G43.001 [facility] [id number] [place] [address] 57681- 5386 March, [facility] [id number] [place] [address] 52881- 3544 Feb, [facility] [place] [id number] [place] [address] 07435- 6162 Feb, [facility] [id number] [place] [address] 06348 -2523 Feb, Sore throat J02.9 and Acute upper respiratory infection, unspecified J06.9 [facility] [id number] [place] [address] 02841- 8115 Feb, Dental examination Z01.20 and Supereruption K00.6 [facility] [address] [place] [address] Feb, Needlestick injury accident W27.3XXA and Employee exposure to blood Z57.8 [facility] [address] 18992- 1811 Feb, Dental examination Z01.20 [facility] [id number] [place] [address] 66965- 5916 28 Dec, 2016 Low back pain M54.5 [place] [address] 02284- 9894 27 Dec, 2016 Acute upper respiratory infection, unspecified J06.9 and Other viral agents as the cause of diseases classified elsewhere B97.89 [facility] [address] [id number] 23 Dec, 2016 Dental examination Z01.20 [facility] [address] 92092 -7153 16 Dec, 2016 Gastroenteritis K52.9 [place] [address] 98493- 1877 10 Dec, 2016 Plantar fasciitis of left foot M72.2 [place] [address] 16547- 0292 01 Dec, 2016 Low back pain M54.5 [facility] [place] [id number] [place] [address] 28557- 3147 Nov, Depression, unspecified depression type F32.9 ; Low back pain M54.5 ; Primary insomnia F51.01 ; Irritable bowel syndrome with diarrhea K58.0 ; Pain of left heel M79.672 and Migraine without aura and with status migrainosus, not intractable G43.001 [place] [id number] [place] [address] 32090- 4794 Nov, Acute pain of right knee M25.561 and Primary insomnia F51.01 [place] [address] 39840- 7940 Oct, [facility] [id number] [place] [address] 96728- 3435 Oct, Urinary pain R30.9 [facility] [id number] [place] [address] 03390 -8766 Oct, Acute recurrent maxillary sinusitis J01.01 [facility] [address] 96309- 1460 Sep, Acute pain of right knee M25.561 [place] [id number] [place] [address] 28252- 2185 Sep, [facility] [address] 81365- 3825 Sep, Arthralgia, unspecified joint M25.50 [place] [address] 43409- 7325 Sep, Hives L50.9 and Arthralgia, unspecified joint M25.50 [facility] [id number] [place] [address] 98052- 8118 16 Sep, 2016 [place] [id number] [place] [address] 98898- 8596 15 Sep, 2016 Depression, unspecified depression type F32.9 ; Primary insomnia F51.01 ; Irritable bowel syndrome with diarrhea K58.0 ; Encounter to establish care Z76.89 and Increased urinary frequency R35.0 [facility] [id number] [place] [address] 91706 -6965 05 Sep, 2016 Acute suppurative otitis media of right ear without spontaneous rupture of tympanic membrane, recurrence not specified H66.001 and Acute non-recurrent maxillary sinusitis J01.00 [facility] [address] [place] [address] 09455 -0989 03 Sep, 2016 Cough R05 [facility] [id number] [place] [address] [phone] Aug, Encounter for immunization Z23 [facility] [address] [facility] [id number] [address] Aug, [facility] [id number] [place] [address] 17412 -9134 04 Aug, 2016 Kyphosis of cervical region, unspecified kyphosis type M40.202 [place] [id number] [place] [address] [phone] Jul, Low back pain M54.5 and Depression, unspecified depression type F32.9 [address] [place] [address] [phone] Jun, Strep throat J02.0 [place] [id number] [place] [address] [phone] Jun, Dental examination Z01.[address] [id number] May, [address] [id number] Apr, [place] [id number] [place] [address] [phone] March, Depression, unspecified depression type F32.[address] [id number] Feb, Routine lab draw Z00.00 ; Obesity E66.9 and Swelling of ankle M25.[address] [id number] Jan, GE (gastroenteritis) K52.9 [place] [id number] [place] [address] [phone] Nov, Sinusitis J32.9 ; Allergic rhinitis J30.9 and Otitis externa, left H60.92 [place] [id number] [place] [address] [phone] Sep, Cough R05 IMMUNIZATIONS No Known Immunizations SOCIAL HISTORY Never Assessed REASON FOR VISIT sick--tcuppettRN, cough and congestion that started last and has sore throat. Chest discomfort from coughing PLAN OF CARE Activity Details Follow Up prn Reason: VITAL SIGNS Height 69 in 2018-01-19 Weight 295 lbs 2018-01-19 Temperature 97.8 degrees Fahrenheit 2018-01-19 Heart Rate 88 bpm 2018-01-19 Respiratory Rate 20 2018-01-19 Oximetry 98 % 2018-01-19 BMI 43.56 kg/m2 2018-01-19 Blood pressure systolic 124 mmHg 2018-01-19 Blood pressure diastolic 80 mmHg 2018-01-19 MEDICATIONS Medication Instructions Dosage Frequency Start Date End Date Duration Status Doxycycline Hyclate 100 mg Orally every 12 hrs 1 capsule 12h Jan, Jan, 10 days Active Protonix 40 mg Orally Once a day 1 tablet 24h Aug, 30 day(s) Active Zyrtec Allergy 10 MG Orally Once a day 1 tablet 24h Jan, Feb, 30 day(s) Not-Taking Tessalon Perles 100 mg Orally Three times a day 1 capsule as needed 8h Jan, Active Bentyl 10 mg Orally 4 times a day 1 tablet 6h Sep, Not- Taking Yocdqsepnb-WUBK-Tncrfazw 50-325-40 MG Orally every 4 hrs 2 at onset then one every four max 6 daily 4h 25 Sep, 2016 Active Flonase 50 MCG/ACT Nasally twice a day 1 spray in each nostril 12h Jan, 30 day(s) Active Cymbalta 30 MG Orally Once a day 1 capsule 24h March, Active Fish Oil 1000 MG Orally 2 times a day 1 capsule 12h Active Cymbalta 60 mg Orally Once a day 1 capsule 24h Aug, 30 day(s) Active Ambien 10 mg Orally Once a day 1 tablet at bedtime as needed 24h Nov, 28 days Active Zofran ODT 4 MG Orally every 8 hrs 1 tablet on the tongue and allow to dissolve 8h Jan, 7 days Not-Taking Hydrocodone-Acetaminophen 7.5-325 MG Orally 3 times a day 1 tablet as needed 8h Dec, 28 days Active Calcium + D3 600-200 MG-UNIT Orally 2 times a day 1 tablet with a meal 12h Active RESULTS Name Result Date Reference Range Xray : Chest 2 View (IN HOUSE) 2018-01-19 PROCEDURES Procedure Date Ordered Result Body Site X-RAY EXAM CHEST 2 VIEWS January 19, 2018 INSTRUCTIONS MEDICATIONS ADMINISTERED No Known Medications MEDICAL [...]
--- OUTSIDE RECORDS SUMMARY | 2018-05-31 09:44 | XMS REPORT ---
Author Author BRIONNA MORENO [facility] Address [address] [place] [address] Care Team Providers Care Box Gluer Name Role Phone BRIONNA MORENO Unavailable PROBLEMS Type Condition ICD9-CM Code YCE85-GE Code Onset Dates Condition Status SNOMED Code Problem Irritable bowel syndrome with diarrhea K58.0 Active 635931987 Problem Migraine without aura and with status migrainosus, not intractable G43.001 Active 36230783 Problem Primary insomnia F51.01 Active 2924002 Problem Depression, unspecified depression type F32.9 Active 14988344 Problem Low back pain M54.5 Active 790798136 Problem Observed sleep apnea G47.30 Active 70144088 Problem Other chronic pain G89.29 Active 76061300 Problem Dental caries K02.9 Active 20155709 Problem Pain of left heel M79.672 Active 7452427212931059 Problem Mood disorder F39 Active 08821998 Problem Morbid obesity due to excess calories E66.01 Active 901489797 ALLERGIES No Information ENCOUNTERS Encounter Location Date Diagnosis [facility] [address] [id number] March, [facility] [id number] [place] [id number] March, [facility] [address] [address] March, Low back pain M54.5 and Primary insomnia F51.01 [facility] [address] [id number] March, Dental examination Z01.20 [facility] [id number] [place] [address] 58736- 9509 Feb, [facility] [address] [address]- [address] Feb, Low back pain M54.5 [facility] [id number] [id number] Feb, Dental examination Z01.20 [facility] [address] [place] [address] 46295- 9495 Feb, Primary insomnia F51.01 [facility] [id number] [place] [address] 32048- 8530 Jan, BMI 40.0-44.9, adult Z68.41 and Observed sleep apnea G47.30 [facility] [id number] [place] [address] 48521- 2707 Jan, Dental examination Z01.20 [facility] [id number] [place] [address] 75419- 3532 Jan, Dental examination Z01.20 [facility] [id number] [place] [address] 49417- 9287 Jan, Low back pain M54.5 [facility] [id number] [place] [address] 70426- 4131 Jan, Acute laryngopharyngitis J06.0 and BMI 40.0-44.9, adult Z68.41 [facility] [address] [place] [address] 37448 -1415 Jan, Seasonal allergic rhinitis, unspecified trigger J30.2 and BMI 40.0-44.9, adult Z68.41 [facility] [address] [place] [address] 72634 -7285 07 Jan, 2018 Viral URI J06.9 ; Seasonal allergic rhinitis, unspecified trigger J30.2 and BMI 40.0-44.9, adult Z68.41 [facility] [address] [place] [address] 05832- 0622 Jan, [facility] [id number] [place] [address] 50606- 2669 Jan, Primary insomnia F51.01 and Cough R05 [facility] [address] 25[address]0618 Jan, Viral URI J06.9 [place] [address] 12317- 1667 Jan, Sacral pain M53.3 [facility] [address] 6[address]1725 Jan, Nasal congestion R09.81 and BMI 40.0-44.9, adult Z68.41 [place] [address] 36766- 7905 Dec, [facility] [address] 86226- 4878 Dec, Low back pain M54.5 [place] [facility] [address] 54304- 7442 Dec, Primary insomnia F51.01 [place] [address] 05120- 3804 Nov, [facility] [facility] [address] 03369- 1776 Nov, Migraine without aura and with status migrainosus, not intractable G43.001 ; Low back pain M54.5 and Primary insomnia F51.01 [place] [address] 14404- 6217 Nov, Routine gynecological examination Z01.419 ; Routine screening for STI (sexually transmitted infection) Z11.3 and HPV in female B97.7 [place] [address] 68864- 9417 Oct, Low back pain M54.5 ; Other chronic pain G89.29 ; Pain in right hip M25.551 ; Pain in left hip M25.552 ; Pain in right knee M25.561 and Pain in left knee M25.562 [place] [id number] [place] [address] 73495- 8243 13 Oct, 2017 Primary insomnia F51.01 [place] [address] 17180- 3707 Oct, Low back pain M54.5 [place] [address] 88609- 6718 Sep, Encounter for immunization Z23 [place] [address] 51549- 5580 Aug, Low back pain M54.5 and Primary insomnia F51.01 [place] [address] 70771- 9559 10 Aug, 2017 Low back pain M54.5 and Primary insomnia F51.01 [facility] [address] 15141 [address]7325 Aug, Gastroenteritis and colitis, viral A08.4 [facility] [id number] [place] [address] 34080- 9085 04 Aug, 2017 [place] [address] 76745- 0753 03 Aug, 2017 Hot flashes R23.2 ; Morbid obesity due to excess calories E66.01 and Mood disorder F39 [facility] [id number] [place] [address] 64484- 6708 02 Aug, 2017 Hot flashes R23.2 ; Morbid obesity due to excess calories E66.01 and Mood disorder F39 [facility] [id number] [place] [address] 32775- 0844 07 Jul, 2017 Low back pain M54.5 [facility] [id number] [place] [address] 43523 -1739 06 Jul, 2017 Lipoma of right lower extremity D17.23 and Acute left- sided thoracic back pain M54.6 [place] [address] [place] [address] Jun, Low back pain M54.5 [place] [facility] [address] 04859- 6701 May, Low back pain M54.5 [facility] [id number] [place] [address] 94744- 1877 Apr, Right upper quadrant pain R10.11 ; Depression, unspecified depression type F32.9 ; Low back pain M54.5 ; Primary insomnia F51.01 ; Irritable bowel syndrome with diarrhea K58.0 ; Migraine without aura and with status migrainosus, not intractable G43.001 and Breast cancer screening Z12.39 [place] [address] 87552- 7632 Apr, [place] [address] 41511- 3926 Apr, Migraine without aura and with status migrainosus, not intractable G43.001 [facility] [id number] [place] [address] 22490- 1227 March, [place] [facility] [address] 32753- 1189 Feb, [facility] [id number] [place] [address] 84321- 7307 Feb, [facility] [address] 38323 -2499 14 Feb, 2017 Sore throat J02.9 and Acute upper respiratory infection, unspecified J06.9 [place] [address] 99895- 4641 12 Feb, 2017 Dental examination Z01.20 and Supereruption K00.6 [facility] [id number] [place] [address] 33454 -1691 06 Feb, 2017 Needlestick injury accident W27.3XXA and Employee exposure to blood Z57.8 [place] [address] [place] [address] 73883- 4268 05 Feb, 2017 Dental examination Z01.20 [facility] [id number] [place] [address] 88608- 4083 28 Dec, 2016 Low back pain M54.5 [facility] [id number] [place] [address] 25949- 9914 27 Dec, 2016 Acute upper respiratory infection, unspecified J06.9 and Other viral agents as the cause of diseases classified elsewhere B97.89 [facility] [id number] [place] [address] [phone] Dec, 2016 Dental examination Z01.20 [facility] [id number] [place] [address] 52260 -8202 16 Dec, 2016 Gastroenteritis K52.9 [facility] [id number] [place] [address] 44189- 1373 10 Dec, 2016 Plantar fasciitis of left foot M72.2 [facility] [id number] [place] [address] 39063- 9188 Dec, Low back pain M54.5 [facility] [id number] [place] [address] 74861- 1412 Nov, Depression, unspecified depression type F32.9 ; Low back pain M54.5 ; Primary insomnia F51.01 ; Irritable bowel syndrome with diarrhea K58.0 ; Pain of left heel M79.672 and Migraine without aura and with status migrainosus, not intractable G43.001 [facility] [id number] [place] [address] 85616- 4592 Nov, Acute pain of right knee M25.561 and Primary insomnia F51.01 [facility] [id number] [place] [address] 97165- 0746 Oct, [facility] [id number] [place] [address] 48677- 5030 Oct, Urinary pain R30.9 [facility] [address] [place] [address] 38231 -8864 Oct, Acute recurrent maxillary sinusitis J01.01 [place] [id number] [place] [address] 62031- 7833 Sep, Acute pain of right knee M25.561 [place] [facility] [address] [place] [address] 91365- 7198 Sep, [place] [facility] [address] [place] [address] 93826- 3905 Sep, Arthralgia, unspecified joint M25.50 [place] [facility] [id number] [place] [address] 89062- 9129 Sep, Hives L50.9 and Arthralgia, unspecified joint M25.50 [facility] [id number] [place] [address] 11833- 9942 Sep, [facility] [id number] [place] [address] 35130- 9914 15 Sep, 2016 Depression, unspecified depression type F32.9 ; Primary insomnia F51.01 ; Irritable bowel syndrome with diarrhea K58.0 ; Encounter to establish care Z76.89 and Increased urinary frequency R35.0 [facility] [address] [place] [address] 24949 -7304 Sep, Acute suppurative otitis media of right ear without spontaneous rupture of tympanic membrane, recurrence not specified H66.001 and Acute non-recurrent maxillary sinusitis J01.00 [facility] [address] [address] Sep, Cough R05 [facility] [id number] [place] [address] [id number] Aug, Encounter for immunization Z23 [place] [address] [place] [address] 89096- 1664 Aug, [facility] [id number] [address] Aug, Kyphosis of cervical region, unspecified kyphosis type M40.202 [place] [id number] [place] [address] [phone] Jul, Low back pain M54.5 and Depression, unspecified depression type F32.9 [facility] [address] [place] [address] [id number] [id number] Jun, Strep throat J02.0 [address] [place] [address] [phone] Jun, Dental examination Z01.20 [place] [id number] [place] [address] [id number] May, [place] [id number] [place] [address] [phone] Apr, [place] [id number] [place] [address] [id number] March, Depression, unspecified depression type F32.9 [place] [id number] [place] [address] [id number] Feb, Routine lab draw Z00.00 ; Obesity E66.9 and Swelling of ankle M25.473 [place] [id number] [place] [address] [id number] Jan, GE (gastroenteritis) K52.9 [place] [address] [place] [address] [id number] Nov, Sinusitis J32.9 ; Allergic rhinitis J30.9 and Otitis externa, left H60.[address] [place] [address] [phone] Sep, Cough R05 IMMUNIZATIONS No Known Immunizations SOCIAL HISTORY Never Assessed REASON FOR VISIT Ambien and Hydrocodone PLAN OF CARE VITAL SIGNS MEDICATIONS Medication Instructions Dosage Frequency Start Date End Date Duration Status Hydrocodone-Acetaminophen 7.5-325 MG Orally 3 times a day 1 tablet as needed 8h Aug, 28 days Active Ambien 10 mg Orally Once a day 1 tablet at bedtime as needed 24h Nov, 28 days Active RESULTS No Results PROCEDURES [...]
--- OUTSIDE RECORDS SUMMARY | 2018-05-31 09:44 | XMS REPORT ---
Author Author ANASTACIO SHERIFF [facility] Address [address] [place] [address] Care Team Providers Care Paramedical Aide Name Role Phone ANASTACIO SHERIFF Unavailable PROBLEMS Type Condition ICD9-CM Code [id number] Code Onset Dates Condition Status SNOMED Code Problem Irritable bowel syndrome with diarrhea K58.0 Active 714913762 Problem Migraine without aura and with status migrainosus, not intractable G43.001 Active 58532300 Problem Primary insomnia F51.01 Active 7275746 Problem Depression, unspecified depression type F32.9 Active 53949179 Problem Low back pain M54.5 Active 373828049 Problem Observed sleep apnea G47.30 Active 90997320 Problem Other chronic pain G89.29 Active 75625850 Problem Dental caries K02.9 Active 93175129 Problem Pain of left heel M79.672 Active [id number] Problem Mood disorder F39 Active 63765069 Problem Morbid obesity due to excess calories E66.01 Active 044644458 ALLERGIES Substance Reaction Event Type Date Status Ciprofloxacin hives Drug Allergy Jan, Active ENCOUNTERS Encounter Location Date Diagnosis [facility] [id number] [place] [address] 26289- 5749 Jun, [facility] [id number] [place] [address] 11983- 0706 May, Costochondritis M94.0 [facility] [id number] [place] [address] 19310- 3166 May, Low back pain M54.5 and Primary insomnia F51.01 [facility] [id number] [place] [address] 05676- 4023 Apr, Vaginal candidiasis B37.3 [facility] [id number] [place] [address] 21541 -2224 Apr, Vaginal candidiasis B37.3 [facility] [id number] [place] [address] 33539 -1187 Apr, Acute non-recurrent maxillary sinusitis J01.00 [facility] [id number] [place] [address] 26734- 8899 Apr, [facility] [address] 31834- 5036 Apr, Primary insomnia F51.01 [facility] [id number] [place] [address] 80408 -9032 05 Apr, 2018 Sore throat J02.9 ; Seasonal allergic rhinitis, unspecified trigger J30.2 and BMI 40.0-44.9, adult Z68.41 [facility] [id number] [place] [address] 76967- 9468 Apr, Low back pain M54.5 [facility] [id number] [place] [address] 92742- 7066 Apr, Pain, dental K08.89 [facility] [address] [id number] March, Dental caries K02.9 [facility] [id number] [place] [address] 45002- 7021 March, [facility] [id number] [place] [address] 85918- 7755 March, [facility] [id number] [place] [address] 20256- 9546 March, [facility] [id number] [place] [address] 27022- 5858 March, Low back pain M54.5 and Primary insomnia F51.01 [facility] [id number] [place] [address] [id number] March, Dental examination Z01.20 [facility] [id number] [place] [address] 83899- 7198 Feb, [facility] [address] 95129- 5657 Feb, Low back pain M54.5 [facility] [id number] [place] [address] [id number] Feb, Dental examination Z01.20 [place] [address] 69611- 2196 Feb, Primary insomnia F51.01 [place] [address] 62368- 9998 Jan, BMI 40.0-44.9, adult Z68.41 and Observed sleep apnea G47.30 [place] [address] 34219- 4521 Jan, Dental examination Z01.20 [facility] [id number] [place] [address] 25936- 3112 Jan, Dental examination Z01.20 [place] [id number] [place] [address] 45605- 6825 Jan, Low back pain M54.5 [place] [id number] [place] [address] 89570- 5664 Jan, Acute laryngopharyngitis J06.0 and BMI 40.0-44.9, adult Z68.41 [facility] [id number] [place] [address] 14635 -8761 08 Jan, 2018 Seasonal allergic rhinitis, unspecified trigger J30.2 and BMI 40.0-44.9, adult Z68.41 [facility] [id number] [place] [address] 57376 -1641 07 Jan, 2018 Viral URI J06.9 ; Seasonal allergic rhinitis, unspecified trigger J30.2 and BMI 40.0-44.9, adult Z68.41 [place] [address] [place] [address]197 Jan, [facility] [address] 65461- 0203 Jan, Primary insomnia F51.01 and Cough R05 [facility] [address] 12052 -3342 Jan, Viral URI J06.9 [place] [address] 13645- 7513 Jan, Sacral pain M53.3 [facility] [address] 80131 -0067 Jan, Nasal congestion R09.81 and BMI 40.0-44.9, adult Z68.41 [place] [address] 53531- 3958 Dec, [place] [address] 30545- 2747 Dec, Low back pain M54.5 [place] [address] 07588- 5526 Dec, Primary insomnia F51.01 [place] [address] 47940- 5367 Nov, [place] [address] 20593- 0650 Nov, Migraine without aura and with status migrainosus, not intractable G43.001 ; Low back pain M54.5 and Primary insomnia F51.01 [place] [address] 48205- 9644 Nov, Routine gynecological examination Z01.419 ; Routine screening for STI (sexually transmitted infection) Z11.3 and HPV in female B97.7 [place] [address] 39774- 7474 Oct, Low back pain M54.5 ; Other chronic pain G89.29 ; Pain in right hip M25.551 ; Pain in left hip M25.552 ; Pain in right knee M25.561 and Pain in left knee M25.562 [facility] [id number] [place] [address] 88312- 8732 13 Oct, 2017 Primary insomnia F51.01 [place] [address] 79936- 5478 Oct, Low back pain M54.5 [place] [address] 70665- 3206 Sep, Encounter for immunization Z23 [place] [address] 97227- 2559 Aug, Low back pain M54.5 and Primary insomnia F51.01 [place] [address] 76408- 9172 Aug, Low back pain M54.5 and Primary insomnia F51.01 [facility] [address] 21141 -0809 05 Aug, 2017 Gastroenteritis and colitis, viral A08.4 [place] [id number] [place] [address] 51683- 9741 04 Aug, 2017 [place] [id number] [place] [address] 90651- 9449 03 Aug, 2017 Hot flashes R23.2 ; Morbid obesity due to excess calories E66.01 and Mood disorder F39 [place] [id number] [place] [address] 91420- 3710 02 Aug, 2017 Hot flashes R23.2 ; Morbid obesity due to excess calories E66.01 and Mood disorder F39 [place] [id number] [place] [address] 56436- 9450 07 Jul, 2017 Low back pain M54.5 [facility] [address] 13922 -1356 Jul, Lipoma of right lower extremity D17.23 and Acute left- sided thoracic back pain M54.6 [place] [id number] [place] [address] 17875- 6139 Jun, Low back pain M54.5 [place] [id number] [place] [address] 51260- 9117 May, Low back pain M54.5 [place] [id number] [place] [address] 59001- 6854 Apr, Right upper quadrant pain R10.11 ; Depression, unspecified depression type F32.9 ; Low back pain M54.5 ; Primary insomnia F51.01 ; Irritable bowel syndrome with diarrhea K58.0 ; Migraine without aura and with status migrainosus, not intractable G43.001 and Breast cancer screening Z12.39 [place] [id number] [place] [address] 93409- 2009 Apr, [place] [id number] [place] [address] 44521- 4254 Apr, Migraine without aura and with status migrainosus, not intractable G43.001 [place] [id number] [place] [address] 17856- 4570 March, [place] [id number] [place] [address] 26368- 3492 Feb, [place] [id number] [place] [address] 47887- 0608 Feb, [facility] [place] [id number] [place] [address] 98989 -5823 Feb, Sore throat J02.9 and Acute upper respiratory infection, unspecified J06.9 [place] [id number] [place] [address] 92736- 2625 12 Feb, 2017 Dental examination Z01.20 and Supereruption K00.6 [facility] [address] [place] [address] 09783 -0418 Feb, Needlestick injury accident W27.3XXA and Employee exposure to blood Z57.8 [place] [id number] [place] [address] 26369- 3825 05 Feb, 2017 Dental examination Z01.20 [facility] [id number] [place] [address] 98655- 4586 28 Dec, 2016 Low back pain M54.5 [place] [id number] [place] [address] 24724- 9912 27 Dec, 2016 Acute upper respiratory infection, unspecified J06.9 and Other viral agents as the cause of diseases classified elsewhere B97.89 [facility] [id number] [place] [address] [id number] 23 Dec, 2016 Dental examination Z01.20 [facility] [id number] [place] [address] 90441 -9916 16 Dec, 2016 Gastroenteritis K52.9 [place] [id number] [place] [address] 29615- 5592 10 Dec, 2016 Plantar fasciitis of left foot M72.2 [place] [id number] [place] [address] 53354- 6031 01 Dec, 2016 Low back pain M54.5 [place] [id number] [place] [address] 70769- 3266 Nov, Depression, unspecified depression type F32.9 ; Low back pain M54.5 ; Primary insomnia F51.01 ; Irritable bowel syndrome with diarrhea K58.0 ; Pain of left heel M79.672 and Migraine without aura and with status migrainosus, not intractable G43.001 [place] [id number] [place] [address] 56488- 6703 Nov, Acute pain of right knee M25.561 and Primary insomnia F51.01 [place] [id number] [place] [address] 44939- 5850 Oct, [facility] [address] [place] [address] 18190- 8587 Oct, Urinary pain R30.9 [facility] [id number] [place] [address] 09073 -3991 Oct, Acute recurrent maxillary sinusitis J01.01 [facility] [address] 96036- 4407 30 Sep, 2016 Acute pain of right knee M25.561 [place] [address] 61070- 1531 Sep, [place] [address] 58946- 3946 Sep, Arthralgia, unspecified joint M25.50 [place] [address] 99230- 8369 Sep, Hives L50.9 and Arthralgia, unspecified joint M25.50 [facility] [id number] [place] [address] 76257- 7660 16 Sep, 2016 [place] [id number] [place] [address] 58907- 1358 15 Sep, 2016 Depression, unspecified depression type F32.9 ; Primary insomnia F51.01 ; Irritable bowel syndrome with diarrhea K58.0 ; Encounter to establish care Z76.89 and Increased urinary frequency R35.0 [facility] [id number] [place] [address] 06973 -3915 05 Sep, 2016 Acute suppurative otitis media of right ear without spontaneous rupture of tympanic membrane, recurrence not specified H66.001 and Acute non-recurrent maxillary sinusitis J01.00 [facility] [address] [place] [address] 88920 -7497 03 Sep, 2016 Cough R05 [facility] [id number] [place] [address] [phone] Aug, Encounter for immunization Z23 [facility] [address] [facility] [id number] [address]158 Aug, [facility] [address] [id number] Aug, Kyphosis of cervical region, unspecified kyphosis type M40.[address] [place] [address] [id number] Jul, Low back pain M54.5 and Depression, unspecified depression type F32.9 [facility] [address] [place] [address] [phone] Jun, Strep throat J02.0 [address] [place] [address] [phone] Jun, Dental examination Z01.20 [place] [id number] [place] [address] [id number] May, [place] [id number] [place] [address] [phone] Apr, [place] [id number] [place] [address] [id number] March, Depression, unspecified depression type F32.9 [place] [id number] [place] [address] [id number] Feb, Routine lab draw Z00.00 ; Obesity E66.9 and Swelling of ankle M25.473 [place] [id number] [place] [address] [id number] Jan, GE (gastroenteritis) K52.[address] [place] [address] [id number] Nov, Sinusitis J32.9 ; Allergic rhinitis J30.9 and Otitis externa, left H60.92 [place] [id number] [place] [address] [id number] Sep, Cough R05 IMMUNIZATIONS Vaccine Route Administration Date Status DEXAMETHASONE 4MG/ML (PER 1 MG) IM Intramuscular January 18, 2018 Administered DEPO MEDROL 80 MG/ML IM Intramuscular January 18, 2018 Administered SOCIAL HISTORY Never Assessed REASON FOR VISIT cough and congestion for a week. [email or web address] PLAN OF CARE Activity Details Follow Up prn Reason: VITAL SIGNS Height 69 in 2018-01-18 Weight 291.5 lbs 2018-01-18 Temperature 98.4 degrees Fahrenheit 2018-01-18 Heart Rate 80 bpm 2018-01-18 Respiratory Rate 20 2018-01-18 BMI 43.04 kg/m2 2018-01-18 Blood pressure systolic 126 mmHg 2018-01-18 Blood pressure diastolic 80 mmHg 2018-01-18 MEDICATIONS Medication Instructions Dosage Frequency Start Date End Date Duration Status Calcium + D3 600-200 MG-UNIT Orally 2 times a day 1 tablet with a meal 12h Active Cymbalta 30 MG Orally Once a day 1 capsule 24h March, Active Bentyl 10 mg Orally 4 times a day 1 tablet 6h 15 Sep, 2016 Not- Taking Protonix 40 mg Orally Once a day 1 tablet 24h Aug, 30 day(s) Active Ambien 10 mg Orally Once a day 1 tablet at bedtime as needed 24h Nov, 28 days Active Zofran ODT 4 MG Orally every 8 hrs 1 tablet on the tongue and allow to dissolve 8h Jan, 7 days Active Fish Oil 1000 MG Orally 2 times a day 1 capsule 12h Active Hydrocodone-Acetaminophen 7.5-325 MG Orally 3 times a day 1 tablet as needed 8h Dec, 28 days Active Lgsomcwxse-NXBK-Gompsbcl 50-325-40 MG Orally every 4 hrs 2 at onset then one every four max 6 daily 4h Sep, Active Zyrtec Allergy 10 MG Orally Once a day 1 tablet 24h Jan, Feb, 30 day(s) Active Cymbalta 60 mg Orally Once a day 1 capsule 24h Aug, 30 day(s) Active Flonase 50 MCG/ACT Nasally twice a day 1 spray in each nostril 12h Jan, 30 day(s) Active Tessalon Perles 100 mg Orally Three times a day 1 capsule as needed 8h Jan, Active RESULTS No Results PROCEDURES Procedure Date Ordered Result Body Site DEXAMETHASONE 4MG/ML (PER 1 MG) January 18, 2018 THER/PROPH/DIAG INJ, SC/IM January 18, 2018 DEPO MEDROL 80 MG/ML January 18, 2018 INSTRUCTIONS MEDICATIONS ADMINISTERED No Known Medications [...]
--- OUTSIDE RECORDS SUMMARY | 2018-05-31 09:44 | XMS REPORT ---
Author Author ES ELIAS [facility] Address [address] [place] [address] Care Team Providers Care Retail Aide Name Role Phone ELIASES Unavailable PROBLEMS Type Condition ICD9-CM Code [id number] Code Onset Dates Condition Status SNOMED Code Problem Irritable bowel syndrome with diarrhea K58.0 Active 700502190 Problem Migraine without aura and with status migrainosus, not intractable G43.001 Active 17344491 Problem Primary insomnia F51.01 Active 4312161 Problem Depression, unspecified depression type F32.9 Active 96497145 Problem Low back pain M54.5 Active 711350310 Problem Observed sleep apnea G47.30 Active 53372060 Problem Other chronic pain G89.29 Active 44815695 Problem Dental caries K02.9 Active 49483437 Problem Pain of left heel M79.672 Active [id number] Problem Mood disorder F39 Active 82987384 Problem Morbid obesity due to excess calories E66.01 Active 607456427 ALLERGIES No Information ENCOUNTERS Encounter Location Date Diagnosis [facility] [id number] [place] [phone] March, [facility] [id number] [place] [address] [id number] March, [facility] [id number] [place] [address] 20437- 7178 Feb, Low back pain M54.[address] [facility] [id number] [place] [address] [phone] Feb, Dental examination Z01.20 [facility] [id number] [place] [address] 76213- 3230 Feb, Primary insomnia F51.01 [facility] [id number] [place] [address] 14079- 4350 Jan, BMI 40.0-44.9, adult Z68.41 and Observed sleep apnea G47.30 [place] [address] [address]10- 9714 22 Jan, 2018 Dental examination Z01.20 [place] [address] 83582- 4515 20 Jan, 2018 Dental examination Z01.20 [place] [address] 58877- 0846 12 Jan, 2018 Low back pain M54.5 [place] [address] 72383- 0914 09 Jan, 2018 Acute laryngopharyngitis J06.0 and BMI 40.0-44.9, adult Z68.41 [facility] [address] [address] 08 Jan, 2018 Seasonal allergic rhinitis, unspecified trigger J30.2 and BMI 40.0-44.9, adult Z68.41 [facility] [address] [address] Jan, Viral URI J06.9 ; Seasonal allergic rhinitis, unspecified trigger J30.2 and BMI 40.0-44.9, adult Z68.41 [place] [address] 98431- 4386 Jan, [place] [address] 69458- 0334 Jan, Primary insomnia F51.01 and Cough R05 [facility] [address] [address] Jan, Viral URI J06.9 [place] [address] 91368- 6985 Jan, Sacral pain M53.3 [facility] [address] [address] Jan, Nasal congestion R09.81 and BMI 40.0-44.9, adult Z68.41 [place] [address] 69214- 3941 Dec, [place] [address] 85193- 3845 Dec, Low back pain M54.5 [place] [address] 83598- 5788 Dec, Primary insomnia F51.01 [place] [address] 46281- 9163 Nov, [place] [address] 28043- 0070 Nov, Migraine without aura and with status migrainosus, not intractable G43.001 ; Low back pain M54.5 and Primary insomnia F51.01 [place] [id number] [place] [address] 52414- 8192 Nov, Routine gynecological examination Z01.419 ; Routine screening for STI (sexually transmitted infection) Z11.3 and HPV in female B97.7 [place] [id number] [place] [address] 00124- 1393 Oct, Low back pain M54.5 ; Other chronic pain G89.29 ; Pain in right hip M25.551 ; Pain in left hip M25.552 ; Pain in right knee M25.561 and Pain in left knee M25.562 [place] [id number] [place] [address] 95564- 0504 Oct, Primary insomnia F51.01 [place] [address] 36562- 4851 Oct, Low back pain M54.5 [place] [id number] [place] [address] 62024- 6771 Sep, Encounter for immunization Z23 [place] [address] [id number] [place] [address] 84118- 8038 19 Aug, 2017 Low back pain M54.5 and Primary insomnia F51.01 [place] [id number] [place] [address] 99710- 2705 10 Aug, 2017 Low back pain M54.5 and Primary insomnia F51.01 [facility] [address] 19884 -5[address] 05 Aug, 2017 Gastroenteritis and colitis, viral A08.4 [place] [id number] [place] [address] 87840- 0131 Aug, [place] [id number] [place] [address] 03221- 7173 03 Aug, 2017 Hot flashes R23.2 ; Morbid obesity due to excess calories E66.01 and Mood disorder F39 [place] [id number] [place] [address] 35719- 2020 02 Aug, 2017 Hot flashes R23.2 ; Morbid obesity due to excess calories E66.01 and Mood disorder F39 [place] [id number] [place] [address] 38556- 3464 07 Jul, 2017 Low back pain M54.5 [facility] [id number] [place] [address] 35930 -4726 06 Jul, 2017 Lipoma of right lower extremity D17.23 and Acute left- sided thoracic back pain M54.6 [place] [id number] [place] [address] 61581- 2388 Jun, Low back pain M54.5 [place] [id number] [place] [address] 19766- 2628 May, Low back pain M54.5 [place] [id number] [place] [address] 48784- 7151 Apr, Right upper quadrant pain R10.11 ; Depression, unspecified depression type F32.9 ; Low back pain M54.5 ; Primary insomnia F51.01 ; Irritable bowel syndrome with diarrhea K58.0 ; Migraine without aura and with status migrainosus, not intractable G43.001 and Breast cancer screening Z12.39 [place] [id number] [place] [address] 40559- 9833 Apr, [place] [address] 47768- 5324 Apr, Migraine without aura and with status migrainosus, not intractable G43.001 [place] [id number] [place] [address] 79539- 7071 March, [place] [address] 07079- 0984 Feb, [place] [address] 54518- 9798 Feb, [facility] [place] [id number] [place] [address] 03086 -8433 Feb, Sore throat J02.9 and Acute upper respiratory infection, unspecified J06.9 [place] [id number] [place] [address] 20013- 3206 Feb, Dental examination Z01.20 and Supereruption K00.6 [facility] [place] [id number] [place] [address] 57608 -7155 Feb, Needlestick injury accident W27.3XXA and Employee exposure to blood Z57.8 [place] [id number] [place] [address] 83563- 8573 Feb, Dental examination Z01.20 [place] [id number] [place] [address] 54297- 5072 28 Dec, 2016 Low back pain M54.5 [place] [id number] [place] [address] 98717- 1516 27 Dec, 2016 Acute upper respiratory infection, unspecified J06.9 and Other viral agents as the cause of diseases classified elsewhere B97.[address] [facility] [address] [place] [address] [phone] Dec, 2016 Dental examination Z01.20 [facility] [id number] [place] [address] 63456 -9872 16 Dec, 2016 Gastroenteritis K52.9 [place] [address] 77236- 4980 10 Dec, 2016 Plantar fasciitis of left foot M72.2 [place] [address] 36557- 7024 Dec, Low back pain M54.5 [place] [address] [place] [address] 13628- 0761 Nov, Depression, unspecified depression type F32.9 ; Low back pain M54.5 ; Primary insomnia F51.01 ; Irritable bowel syndrome with diarrhea K58.0 ; Pain of left heel M79.672 and Migraine without aura and with status migrainosus, not intractable G43.001 [place] [id number] [place] [address] 23586- 9912 Nov, Acute pain of right knee M25.561 and Primary insomnia F51.01 [place] [id number] [place] [address] 94630- 1685 Oct, [place] [id number] [place] [address] 15340- 2221 Oct, Urinary pain R30.9 [facility] [id number] [place] [address] 94295 -6392 Oct, Acute recurrent maxillary sinusitis J01.01 [facility] [id number] [place] [address] 16110- 5963 Sep, Acute pain of right knee M25.561 [place] [address] 29149- 8024 Sep, [place] [address] [place] [address] 89883- 2032 Sep, Arthralgia, unspecified joint M25.50 [place] [id number] [place] [address] 91267- 5759 Sep, Hives L50.9 and Arthralgia, unspecified joint M25.50 [place] [address] 63471- 5882 Sep, [place] [address] [id number] [place] [address] 63839- 5309 Sep, Depression, unspecified depression type F32.9 ; Primary insomnia F51.01 ; Irritable bowel syndrome with diarrhea K58.0 ; Encounter to establish care Z76.89 and Increased urinary frequency R35.0 [facility] [address] [place] [id number] [place] [address] 13894 -3806 Sep, Acute suppurative otitis media of right ear without spontaneous rupture of tympanic membrane, recurrence not specified H66.001 and Acute non-recurrent maxillary sinusitis J01.00 [facility] [address] [place] [address] 72818 -9053 Sep, Cough R05 [facility] [id number] [place] [address] [phone] Aug, Encounter for immunization Z23 [place] [id number] [place] [address] 95695- 3494 Aug, [facility] [address] [place] [id number] [place] [address] 40588 -0674 Aug, Kyphosis of cervical region, unspecified kyphosis type M40.202 [facility] [id number] [place] [address] [phone] Jul, Low back pain M54.5 and Depression, unspecified depression type F32.9 [facility] [id number] [phone] Jun, Strep throat J02.0 [facility] [address] [id number] [phone] Jun, Dental examination Z01.20 [address] [id number] May, [place] [id number] [phone] Apr, [address] [place] [address] [phone] March, Depression, unspecified depression type F32.9 [address] [place] [address] [phone] Feb, Routine lab draw Z00.00 ; Obesity E66.9 and Swelling of ankle M25.473 [address] [place] [address] [id number] Jan, GE (gastroenteritis) K52.9 [place] [id number] [place] [address] [phone] Nov, Sinusitis J32.9 ; Allergic rhinitis J30.9 and Otitis externa, left H60.[address] [place] [address] [phone] Sep, Cough R05 IMMUNIZATIONS No Known Immunizations SOCIAL HISTORY Never Assessed REASON FOR VISIT Hydrocodone and Ambien-- 07/28 PLAN OF CARE VITAL SIGNS MEDICATIONS Medication Instructions Dosage Frequency Start Date End Date Duration Status Ambien CR 12.5 MG Orally Once a day 1 tablet at bedtime as needed 24h 28 days Active Hydrocodone-Acetaminophen 7.5-325 MG Orally 3 times a day 1 tablet as needed 8h 14 Jul, 2017 28 days Active RESULTS No Results PROCEDURES [...]
--- OUTSIDE RECORDS SUMMARY | 2018-05-31 09:45 | XMS REPORT ---
Author Author CAITLYN MEJIAS Organization [facility] Address [address] [place] [address] Care Team Providers Care Virtual Recruiter Name Role Phone CAITLYN MEJIAS Unavailable PROBLEMS Type Condition ICD9-CM Code LFO57-UO Code Onset Dates Condition Status SNOMED Code Problem Irritable bowel syndrome with diarrhea K58.0 Active 925813803 Problem Migraine without aura and with status migrainosus, not intractable G43.001 Active 96018316 Problem Primary insomnia F51.01 Active 5362098 Problem Depression, unspecified depression type F32.9 Active 69267999 Problem Low back pain M54.5 Active 644584288 Problem Observed sleep apnea G47.30 Active 63153778 Problem Other chronic pain G89.29 Active 36198148 Problem Dental caries K02.9 Active 49549359 Problem Pain of left heel M79.672 Active [id number] Problem Mood disorder F39 Active 18369884 Problem Morbid obesity due to excess calories E66.01 Active 110809403 ALLERGIES No Information ENCOUNTERS Encounter Location Date Diagnosis [facility] [id number] [place] [address] 55915- 5467 Jun, [facility] [id number] [place] [address] 04159- 2394 May, Costochondritis M94.0 [facility] [address] 85346- 1368 May, Low back pain M54.5 and Primary insomnia F51.01 [facility] [address] 85530- 4332 Apr, Vaginal candidiasis B37.3 [facility] [id number] [place] [address] 00102 -4358 Apr, Vaginal candidiasis B37.3 [facility] [id number] [place] [address] 53622 -2146 11 Apr, 2018 Acute non-recurrent maxillary sinusitis J01.00 [facility] [id number] [place] [address] 86043- 6514 Apr, [facility] [id number] [place] [address] 38814- 0471 06 Apr, 2018 Primary insomnia F51.01 [facility] [id number] [place] [address] 38201 -1807 05 Apr, 2018 Sore throat J02.9 ; Seasonal allergic rhinitis, unspecified trigger J30.2 and BMI 40.0-44.9, adult Z68.41 [facility] [id number] [place] [address] 09958- 9092 04 Apr, 2018 Low back pain M54.5 [facility] [address] 36527- 7168 Apr, Pain, dental K08.89 [facility] [address] [id number] March, Dental caries K02.9 [facility] [id number] [place] [address] 16678- 8262 March, [facility] [id number] [place] [address] 74733- 5357 March, [facility] [id number] [place] [address] 41820- 9517 March, [facility] [id number] [place] [address] 60271- 1788 March, Low back pain M54.5 and Primary insomnia F51.01 [facility] [id number] [place] [address] [id number] March, Dental examination Z01.20 [facility] [id number] [place] [address] 74501- 0125 Feb, [facility] [id number] [place] [address] 13141- 6570 Feb, Low back pain M54.5 [facility] [id number] [place] [address] [id number] Feb, Dental examination Z01.20 [facility] [id number] [place] [address] 79217- 8028 Feb, Primary insomnia F51.01 [facility] [address] 03771- 8259 Jan, BMI 40.0-44.9, adult Z68.41 and Observed sleep apnea G47.30 [facility] [address] 07735- 7668 Jan, Dental examination Z01.20 [facility] [id number] [place] [address] 88617- 9334 Jan, Dental examination Z01.20 [facility] [id number] [place] [address] 51301- 0772 Jan, Low back pain M54.5 [facility] [id number] [place] [address] 97078- 4194 Jan, Acute laryngopharyngitis J06.0 and BMI 40.0-44.9, adult Z68.41 [facility] [id number] [place] [address] 83382 -6636 08 Jan, 2018 Seasonal allergic rhinitis, unspecified trigger J30.2 and BMI 40.0-44.9, adult Z68.41 [facility] [id number] [place] [address] 60594 -7444 07 Jan, 2018 Viral URI J06.9 ; Seasonal allergic rhinitis, unspecified trigger J30.2 and BMI 40.0-44.9, adult Z68.41 [facility] [id number] [place] [address] 96539- 1769 Jan, [facility] [id number] [place] [address] 33605- 8290 Jan, Primary insomnia F51.01 and Cough R05 [facility] [id number] [place] [address] 23154 -3451 Jan, Viral URI J06.9 [facility] [address] 63687- 4923 Jan, Sacral pain M53.3 [facility] [id number] [place] [address] 10209 -5620 Jan, Nasal congestion R09.81 and BMI 40.0-44.9, adult Z68.41 [facility] [address] 72078- 6360 Dec, [facility] [address] 53508- 5170 Dec, Low back pain M54.5 [facility] [id number] [place] [address] 62240- 2832 Dec, Primary insomnia F51.01 [facility] [address] 63482- 8454 Nov, [facility] [id number] [place] [address] 95693- 3648 Nov, Migraine without aura and with status migrainosus, not intractable G43.001 ; Low back pain M54.5 and Primary insomnia F51.01 [facility] [id number] [place] [address] 48677- 7026 Nov, Routine gynecological examination Z01.419 ; Routine screening for STI (sexually transmitted infection) Z11.3 and HPV in female B97.7 [facility] [id number] [place] [address] 91281- 0895 Oct, Low back pain M54.5 ; Other chronic pain G89.29 ; Pain in right hip M25.551 ; Pain in left hip M25.552 ; Pain in right knee M25.561 and Pain in left knee M25.562 [facility] [id number] [place] [address] 69657- 4228 13 Oct, 2017 Primary insomnia F51.01 [facility] [id number] [place] [address] 76834- 9888 Oct, Low back pain M54.5 [facility] [address] 98907- 0003 Sep, Encounter for immunization Z23 [facility] [address] 01098- 1283 Aug, Low back pain M54.5 and Primary insomnia F51.01 [facility] [id number] [place] [address] 47274- 6025 10 Aug, 2017 Low back pain M54.5 and Primary insomnia F51.01 [facility] [address] 09985 -6866 05 Aug, 2017 Gastroenteritis and colitis, viral A08.4 [facility] [address] 54957- 9759 04 Aug, 2017 [facility] [id number] [place] [address] 71179- 0959 03 Aug, 2017 Hot flashes R23.2 ; Morbid obesity due to excess calories E66.01 and Mood disorder F39 [facility] [id number] [place] [address] 18349- 0281 02 Aug, 2017 Hot flashes R23.2 ; Morbid obesity due to excess calories E66.01 and Mood disorder F39 [facility] [id number] [place] [address] 04553- 0142 07 Jul, 2017 Low back pain M54.5 [facility] [id number] [place] [address] 33566 -3447 06 Jul, 2017 Lipoma of right lower extremity D17.23 and Acute left- sided thoracic back pain M54.6 [facility] [id number] [place] [address] 76740- 5836 Jun, Low back pain M54.5 [facility] [id number] [place] [address] 56936- 4622 May, Low back pain M54.5 [facility] [address] 93814- 6861 Apr, Right upper quadrant pain R10.11 ; Depression, unspecified depression type F32.9 ; Low back pain M54.5 ; Primary insomnia F51.01 ; Irritable bowel syndrome with diarrhea K58.0 ; Migraine without aura and with status migrainosus, not intractable G43.001 and Breast cancer screening Z12.39 [facility] [id number] [place] [address] 17236- 5601 Apr, [facility] [address] 38591- 3349 Apr, Migraine without aura and with status migrainosus, not intractable G43.001 [facility] [id number] [place] [address] 19531- 4357 March, [facility] [id number] [place] [address] 39640- 5830 Feb, [facility] [id number] [place] [address] 22299- 0343 Feb, [facility] [id number] [place] [address] 61862 -8426 Feb, Sore throat J02.9 and Acute upper respiratory infection, unspecified J06.9 [facility] [id number] [place] [address] 75751- 6874 Feb, Dental examination Z01.20 and Supereruption K00.6 [facility] [id number] [place] [address] 83305 -0948 Feb, Needlestick injury accident W27.3XXA and Employee exposure to blood Z57.8 [facility] [id number] [place] [address] 77519- 7602 05 Feb, 2017 Dental examination Z01.20 [facility] [id number] [place] [address] 96023- 5340 28 Dec, 2016 Low back pain M54.5 [facility] [address] 23861- 7195 27 Dec, 2016 Acute upper respiratory infection, unspecified J06.9 and Other viral agents as the cause of diseases classified elsewhere B97.89 [facility] [address] [id number] Dec, 2016 Dental examination Z01.20 [facility] [id number] [place] [address] 28168 -2402 16 Dec, 2016 Gastroenteritis K52.9 [facility] [address] 78087- 5296 10 Dec, 2016 Plantar fasciitis of left foot M72.[address] 52567- 9730 01 Dec, 2016 Low back pain M54.5 [facility] [id number] [place] [address] 98424- 1492 Nov, Depression, unspecified depression type F32.9 ; Low back pain M54.5 ; Primary insomnia F51.01 ; Irritable bowel syndrome with diarrhea K58.0 ; Pain of left heel M79.672 and Migraine without aura and with status migrainosus, not intractable G43.[address] 95460- 0287 Nov, Acute pain of right knee M25.561 and Primary insomnia F51.01 [facility] [address] [place] [id number] [place] [address] 55765- 7933 Oct, [facility] [address] [place], [place] [address] [address]- 7608 Oct, Urinary pain R30.9 [facility] [id number] [place] [address] 48810 -6052 Oct, Acute recurrent maxillary sinusitis J01.01 [facility] [id number] [place] [address] 75993- 5644 Sep, Acute pain of right knee M25.561 [facility] [address] 28298- 7545 Sep, [facility] [place] [address] 37612- 9727 Sep, Arthralgia, unspecified joint M25.50 [facility] [address] 36060- 3556 Sep, Hives L50.9 and Arthralgia, unspecified joint M25.50 [facility] [id number] [place] [address] 26709- 1992 16 Sep, 2016 [facility] [id number] [place] [address] 24306- 1260 15 Sep, 2016 Depression, unspecified depression type F32.9 ; Primary insomnia F51.01 ; Irritable bowel syndrome with diarrhea K58.0 ; Encounter to establish care Z76.89 and Increased urinary frequency R35.0 [facility] [id number] [place] [address] 83841 -7581 05 Sep, 2016 Acute suppurative otitis media of right ear without spontaneous rupture of tympanic membrane, recurrence not specified H66.001 and Acute non-recurrent maxillary sinusitis J01.00 [facility] [id number] [place] [address] 73086 -2002 03 Sep, 2016 Cough R05 [facility] [id number] [place] [address] [id number] Aug, Encounter for immunization Z23 [facility] [address] 13167- 2546 Aug, [facility] [address] [facility] [id number] [address] -[address]46 Aug, Kyphosis of cervical region, unspecified kyphosis type M40.202 [address] [id number] Jul, Low back pain M54.5 and Depression, unspecified depression type F32.9 [facility] [address] [place] [address] [id number] [id number] Jun, Strep throat J02.0 [address] [place] [address] [phone] Jun, Dental examination Z01.20 [address] [place] [address] [id number] May, [place] [id number] [place] [address] [id number] Apr, [place] [id number] [place] [address] [id number] March, Depression, unspecified depression type F32.9 [address] [place] [address] [id number] Feb, Routine lab draw Z00.00 ; Obesity E66.9 and Swelling of ankle M25.473 [address] [place] [address] [id number] Jan, GE (gastroenteritis) K52.9 [address] [place] [address] [phone] Nov, Sinusitis J32.9 ; Allergic rhinitis J30.9 and Otitis externa, left H60.92 [address] [place] [address] [phone] Sep, Cough R05 IMMUNIZATIONS No Known Immunizations SOCIAL HISTORY Never Assessed REASON FOR VISIT Medication Request PLAN OF CARE VITAL SIGNS MEDICATIONS Unknown Medications RESULTS No Results PROCEDURES No Known procedures [...]
--- OUTSIDE RECORDS SUMMARY | 2018-05-31 09:45 | XMS REPORT ---
Author Author CAITLYN MEJIAS Organization [facility] Address [address] [place] [address] Care Team Providers Care Business Machine Operator Name Role Phone CAITLYN MEJIAS Unavailable PROBLEMS Type Condition ICD9-CM Code TOK60-JI Code Onset Dates Condition Status SNOMED Code Problem Irritable bowel syndrome with diarrhea K58.0 Active 202107582 Problem Migraine without aura and with status migrainosus, not intractable G43.001 Active 66012164 Problem Primary insomnia F51.01 Active 6676871 Problem Depression, unspecified depression type F32.9 Active 48439883 Problem Low back pain M54.5 Active 390649468 Problem Observed sleep apnea G47.30 Active 23369869 Problem Other chronic pain G89.29 Active 88258670 Problem Dental caries K02.9 Active 78438480 Problem Pain of left heel M79.672 Active [id number] Problem Mood disorder F39 Active 08723887 Problem Morbid obesity due to excess calories E66.01 Active 018830956 ALLERGIES No Information ENCOUNTERS Encounter Location Date Diagnosis [facility] [id number] [place] [address] 50876- 7696 Jun, [facility] [id number] [place] [address] 04029- 6641 May, Costochondritis M94.0 [facility] [address] 59506- 6712 May, Low back pain M54.5 and Primary insomnia F51.01 [facility] [address] 23847- 9226 Apr, Vaginal candidiasis B37.3 [facility] [id number] [place] [address] 44526 -0934 Apr, Vaginal candidiasis B37.3 [facility] [id number] [place] [address] 85021 -2372 11 Apr, 2018 Acute non-recurrent maxillary sinusitis J01.00 [facility] [id number] [place] [address] 98650- 3243 Apr, [facility] [id number] [place] [address] 50461- 9810 06 Apr, 2018 Primary insomnia F51.01 [facility] [id number] [place] [address] 01669 -2173 05 Apr, 2018 Sore throat J02.9 ; Seasonal allergic rhinitis, unspecified trigger J30.2 and BMI 40.0-44.9, adult Z68.41 [facility] [id number] [place] [address] 23275- 6988 04 Apr, 2018 Low back pain M54.5 [facility] [address] 41263- 7274 Apr, Pain, dental K08.89 [facility] [address] [id number] March, Dental caries K02.9 [facility] [id number] [place] [address] 36058- 1952 March, [facility] [id number] [place] [address] 43452- 2187 March, [facility] [id number] [place] [address] 30407- 9684 March, [facility] [id number] [place] [address] 32483- 2486 March, Low back pain M54.5 and Primary insomnia F51.01 [facility] [id number] [place] [address] [id number] March, Dental examination Z01.20 [facility] [id number] [place] [address] 96859- 4485 Feb, [facility] [id number] [place] [address] 24276- 9471 Feb, Low back pain M54.5 [facility] [id number] [place] [address] [id number] Feb, Dental examination Z01.20 [facility] [id number] [place] [address] 29270- 3980 Feb, Primary insomnia F51.01 [facility] [address] 19791- 0544 Jan, BMI 40.0-44.9, adult Z68.41 and Observed sleep apnea G47.30 [facility] [address] 27746- 6213 Jan, Dental examination Z01.20 [facility] [id number] [place] [address] 20263- 5473 Jan, Dental examination Z01.20 [facility] [id number] [place] [address] 67958- 7494 Jan, Low back pain M54.5 [facility] [id number] [place] [address] 58163- 8841 Jan, Acute laryngopharyngitis J06.0 and BMI 40.0-44.9, adult Z68.41 [facility] [id number] [place] [address] 67513 -5075 08 Jan, 2018 Seasonal allergic rhinitis, unspecified trigger J30.2 and BMI 40.0-44.9, adult Z68.41 [facility] [id number] [place] [address] 46573 -3328 07 Jan, 2018 Viral URI J06.9 ; Seasonal allergic rhinitis, unspecified trigger J30.2 and BMI 40.0-44.9, adult Z68.41 [facility] [id number] [place] [address] 36600- 6535 Jan, [facility] [id number] [place] [address] 91865- 4544 Jan, Primary insomnia F51.01 and Cough R05 [facility] [id number] [place] [address] 51954 -1116 Jan, Viral URI J06.9 [facility] [facility] [address] 21374- 9335 Jan, Sacral pain M53.3 [facility] [id number] [place] [address] 76395 -6096 Jan, Nasal congestion R09.81 and BMI 40.0-44.9, adult Z68.41 [facility] [address] 37292- 4027 Dec, [facility] [address] 80687- 5068 Dec, Low back pain M54.5 [facility] [id number] [place] [address] 95243- 9151 Dec, Primary insomnia F51.01 [facility] [address] 01036- 3448 Nov, [facility] [id number] [place] [address] 85137- 8158 Nov, Migraine without aura and with status migrainosus, not intractable G43.001 ; Low back pain M54.5 and Primary insomnia F51.01 [facility] [id number] [place] [address] 37444- 2470 Nov, Routine gynecological examination Z01.419 ; Routine screening for STI (sexually transmitted infection) Z11.3 and HPV in female B97.7 [facility] [id number] [place] [address] 73132- 6016 Oct, Low back pain M54.5 ; Other chronic pain G89.29 ; Pain in right hip M25.551 ; Pain in left hip M25.552 ; Pain in right knee M25.561 and Pain in left knee M25.562 [facility] [id number] [place] [address] 01983- 8435 13 Oct, 2017 Primary insomnia F51.01 [facility] [id number] [place] [address] 53524- 2580 Oct, Low back pain M54.5 [facility] [address] 30637- 5330 Sep, Encounter for immunization Z23 [facility] [address] 13911- 6469 Aug, Low back pain M54.5 and Primary insomnia F51.01 [facility] [id number] [place] [address] 97552- 0378 10 Aug, 2017 Low back pain M54.5 and Primary insomnia F51.01 [facility] [address] 05217 -7186 05 Aug, 2017 Gastroenteritis and colitis, viral A08.4 [facility] [address] 49957- 5080 04 Aug, 2017 [facility] [id number] [place] [address] 76428- 5695 03 Aug, 2017 Hot flashes R23.2 ; Morbid obesity due to excess calories E66.01 and Mood disorder F39 [facility] [id number] [place] [address] 57704- 5560 02 Aug, 2017 Hot flashes R23.2 ; Morbid obesity due to excess calories E66.01 and Mood disorder F39 [facility] [id number] [place] [address] 24339- 4365 07 Jul, 2017 Low back pain M54.5 [facility] [id number] [place] [address] 49246 -9468 06 Jul, 2017 Lipoma of right lower extremity D17.23 and Acute left- sided thoracic back pain M54.6 [facility] [id number] [place] [address] 70771- 5816 Jun, Low back pain M54.5 [facility] [id number] [place] [address] 34290- 3624 May, Low back pain M54.5 [facility] [address] 31521- 5481 Apr, Right upper quadrant pain R10.11 ; Depression, unspecified depression type F32.9 ; Low back pain M54.5 ; Primary insomnia F51.01 ; Irritable bowel syndrome with diarrhea K58.0 ; Migraine without aura and with status migrainosus, not intractable G43.001 and Breast cancer screening Z12.39 [facility] [id number] [place] [address] 34788- 2184 Apr, [facility] [address] 70206- 8729 Apr, Migraine without aura and with status migrainosus, not intractable G43.001 [facility] [id number] [place] [address] 47286- 6715 March, [facility] [id number] [place] [address] 18287- 3556 Feb, [facility] [id number] [place] [address] 16659- 2956 Feb, [facility] [id number] [place] [address] 71892 -1586 Feb, Sore throat J02.9 and Acute upper respiratory infection, unspecified J06.9 [facility] [id number] [place] [address] 35157- 2833 Feb, Dental examination Z01.20 and Supereruption K00.6 [facility] [id number] [place] [address] 39689 -6665 Feb, Needlestick injury accident W27.3XXA and Employee exposure to blood Z57.8 [facility] [id number] [place] [address] 14360- 3592 05 Feb, 2017 Dental examination Z01.20 [facility] [id number] [place] [address] 85740- 1570 28 Dec, 2016 Low back pain M54.5 [facility] [address] 16484- 9081 27 Dec, 2016 Acute upper respiratory infection, unspecified J06.9 and Other viral agents as the cause of diseases classified elsewhere B97.89 [facility] [address] [id number] Dec, 2016 Dental examination Z01.20 [facility] [id number] [place] [address] 21573 -4959 16 Dec, 2016 Gastroenteritis K52.9 [facility] [address] 70605- 4455 10 Dec, 2016 Plantar fasciitis of left foot M72.[address] 71015- 0647 01 Dec, 2016 Low back pain M54.5 [facility] [id number] [place] [address] 68135- 9931 Nov, Depression, unspecified depression type F32.9 ; Low back pain M54.5 ; Primary insomnia F51.01 ; Irritable bowel syndrome with diarrhea K58.0 ; Pain of left heel M79.672 and Migraine without aura and with status migrainosus, not intractable G43.[address] 76568- 8645 Nov, Acute pain of right knee M25.561 and Primary insomnia F51.01 [facility] [address] [place] [id number] [place] [address] 31837- 2695 Oct, [facility] [address] [place] [address] [address]- 4833 Oct, Urinary pain R30.9 [facility] [id number] [place] [address] 97643 -1150 Oct, Acute recurrent maxillary sinusitis J01.01 [facility] [id number] [place] [address] 30606- 6301 Sep, Acute pain of right knee M25.561 [facility] [address] 48988- 3914 Sep, [place] [address] 72123- 3364 Sep, Arthralgia, unspecified joint M25.50 [facility] [address] 56079- 1846 Sep, Hives L50.9 and Arthralgia, unspecified joint M25.50 [facility] [id number] [place] [address] 07754- 2864 16 Sep, 2016 [facility] [id number] [place] [address] 32090- 4881 15 Sep, 2016 Depression, unspecified depression type F32.9 ; Primary insomnia F51.01 ; Irritable bowel syndrome with diarrhea K58.0 ; Encounter to establish care Z76.89 and Increased urinary frequency R35.0 [facility] [id number] [place] [address] 87586 -1118 05 Sep, 2016 Acute suppurative otitis media of right ear without spontaneous rupture of tympanic membrane, recurrence not specified H66.001 and Acute non-recurrent maxillary sinusitis J01.00 [facility] [id number] [place] [address] 54912 -8027 03 Sep, 2016 Cough R05 [facility] [id number] [place] [address] [id number] Aug, Encounter for immunization Z23 [place] [id number] 25648- 2546 Aug, [facility] [address] [facility] [place] [place] [id number] [address] Aug, Kyphosis of cervical region, unspecified kyphosis type M40.202 [address] [id number] Jul, Low back pain M54.5 and Depression, unspecified depression type F32.9 [facility] [address] [place] [address] [id number] [id number] Jun, Strep throat J02.0 [address] [place] [address] [id number] Jun, Dental examination Z01.20 [address] [id number] May, [place] [id number] [place] [address] [id number] Apr, [place] [id number] [place] [address] [id number] March, Depression, unspecified depression type F32.9 [address] [place] [address] [id number] Feb, Routine lab draw Z00.00 ; Obesity E66.9 and Swelling of ankle M25.473 [address] [id number] Jan, GE (gastroenteritis) K52.9 [address] [place] [address] [id number] Nov, Sinusitis J32.9 ; Allergic rhinitis J30.9 and Otitis externa, left H60.92 [address] [place] [address] [id number] Sep, Cough R05 IMMUNIZATIONS No Known Immunizations SOCIAL HISTORY Never Assessed REASON FOR VISIT Controlled Med Refill PLAN OF CARE VITAL SIGNS MEDICATIONS Medication Instructions Dosage Frequency Start Date End Date Duration Status Tessalon Perles 100 mg Orally Three times a day 1 capsule as needed 8h Jan, Active Ambien 10 mg Orally Once a day 1 tablet at bedtime as needed 24h 19 Geronimo, 2017 28 days Active RESULTS No Results [...]
--- OUTSIDE RECORDS SUMMARY | 2018-05-31 09:45 | XMS REPORT ---
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 Name Role Phone FÁTIMA LYNN Unavailable PROBLEMS Type Condition ICD9-CM Code [id number] Code Onset Dates Condition Status SNOMED Code Problem Irritable bowel syndrome with diarrhea K58.0 Active 465261922 Problem Migraine without aura and with status migrainosus, not intractable G43.001 Active 92242797 Problem Primary insomnia F51.01 Active 5133247 Problem Depression, unspecified depression type F32.9 Active 02219953 Problem Low back pain M54.5 Active 828974376 Problem Observed sleep apnea G47.30 Active 10725324 Problem Other chronic pain G89.29 Active 92038114 Problem Dental caries K02.9 Active 27377933 Problem Pain of left heel M79.672 Active 0151419230600210 Problem Mood disorder F39 Active 85992824 Problem Morbid obesity due to excess calories E66.01 Active 513727030 ALLERGIES Substance Reaction Event Type Date Status Ciprofloxacin hives Drug Allergy Jan, Active ENCOUNTERS Encounter Location Date Diagnosis [facility] [id number] [address] Jun, [facility] [id number] [place] [address] 66906- 4525 May, Costochondritis M94.0 [facility] [id number] [place] [address] 07779- 5273 May, Low back pain M54.5 and Primary insomnia F51.01 [facility] [id number] [place] [address] 26944- 2395 Apr, Vaginal candidiasis B37.3 [facility] [id number] [place] [address] 00794 -9927 Apr, Vaginal candidiasis B37.3 [facility] [id number] [place] [address] 06685 -4867 Apr, Acute non-recurrent maxillary sinusitis J01.00 [facility] [id number] [place] [address] 18672- 6342 Apr, [facility] [address] [address] Apr, Primary insomnia F51.01 [facility] [id number] [place] [address] 91859 -5328 05 Apr, 2018 Sore throat J02.9 ; Seasonal allergic rhinitis, unspecified trigger J30.2 and BMI 40.0-44.9, adult Z68.41 [facility] [id number] [place] [address] 10407- 1062 Apr, Low back pain M54.5 [facility] [address] 40093- [address]69 Apr, Pain, dental K08.89 [facility] [address] [id number] March, Dental caries K02.9 [facility] [id number] [place] [address] 13229- 9771 March, [facility] [id number] [place] [address] 40804- 6877 March, [facility] [id number] [place] [address] 16232- 4300 March, [facility] [address] 43203- 8970 March, Low back pain M54.5 and Primary insomnia F51.01 [facility] [id number] [place] [address] [id number] March, Dental examination Z01.20 [facility] [address] [place] [address] Feb, [facility] [id number] [place] [address] 25490- 3304 Feb, Low back pain M54.5 [facility] [address] [place] [address] [id number] Feb, Dental examination Z01.20 [facility] [address] 9[address]20- 0116 Feb, Primary insomnia F51.01 [place] [address] 24330- 7874 Jan, BMI 40.0-44.9, adult Z68.41 and Observed sleep apnea G47.30 [place] [address] 84301- 6429 Jan, Dental examination Z01.20 [facility] [address] 10473- 4189 Jan, Dental examination Z01.20 [facility] [id number] [place] [address] 28547- 8269 Jan, Low back pain M54.5 [facility] [address] 31130- 2775 Jan, Acute laryngopharyngitis J06.0 and BMI 40.0-44.9, adult Z68.41 [facility] [id number] [place] [address] 66100 -8060 08 Jan, 2018 Seasonal allergic rhinitis, unspecified trigger J30.2 and BMI 40.0-44.9, adult Z68.41 [facility] [id number] [place] [address] 35510 -9949 07 Jan, 2018 Viral URI J06.9 ; Seasonal allergic rhinitis, unspecified trigger J30.2 and BMI 40.0-44.9, adult Z68.41 [facility] [address] [address]97- 1883 Jan, [place] [address] 02745- 8892 Jan, Primary insomnia F51.01 and Cough R05 [facility] [address] 6[address]66 -9924 Jan, Viral URI J06.9 [place] [address] 13934- 5137 Jan, Sacral pain M53.3 [facility] [address] 66596 -1845 Jan, Nasal congestion R09.81 and BMI 40.0-44.9, adult Z68.41 [place] [address] 73921- 4891 Dec, [place] [address] 01585- 0421 Dec, Low back pain M54.5 [place] [address] 16278- 1172 Dec, Primary insomnia F51.01 [place] [address] 67449- 9985 Nov, [place] [address] 27483- 6269 Nov, Migraine without aura and with status migrainosus, not intractable G43.001 ; Low back pain M54.5 and Primary insomnia F51.01 [place] [address] 73528- 7133 Nov, Routine gynecological examination Z01.419 ; Routine screening for STI (sexually transmitted infection) Z11.3 and HPV in female B97.7 [place] [id number] [place] [address] 92209- 7726 Oct, Low back pain M54.5 ; Other chronic pain G89.29 ; Pain in right hip M25.551 ; Pain in left hip M25.552 ; Pain in right knee M25.561 and Pain in left knee M25.562 [place] [id number] [place] [address] 47056- 6254 Oct, Primary insomnia F51.01 [place] [address] 21030- 6391 Oct, Low back pain M54.5 [place] [address] 20003- 2164 Sep, Encounter for immunization Z23 [place] [address] 06609- 8570 Aug, Low back pain M54.5 and Primary insomnia F51.01 [place] [address] 42291- 8039 Aug, Low back pain M54.5 and Primary insomnia F51.01 [facility] [address] 60131 -9633 05 Aug, 2017 Gastroenteritis and colitis, viral A08.4 [place] [id number] [place] [address] 92825- 4205 04 Aug, 2017 [place] [id number] [place] [address] 23572- 1342 03 Aug, 2017 Hot flashes R23.2 ; Morbid obesity due to excess calories E66.01 and Mood disorder F39 [place] [id number] [place] [address] 80211- 2746 02 Aug, 2017 Hot flashes R23.2 ; Morbid obesity due to excess calories E66.01 and Mood disorder F39 [place] [id number] [place] [address] 25920- 2076 07 Jul, 2017 Low back pain M54.5 [facility] [id number] [place] [address] 12031 -9707 Jul, Lipoma of right lower extremity D17.23 and Acute left- sided thoracic back pain M54.6 [place] [id number] [place] [address] 51209- 2917 Jun, Low back pain M54.5 [place] [id number] [place] [address] 45646- 4160 May, Low back pain M54.5 [place] [facility] [id number] [place] [address] 37133- 1768 Apr, Right upper quadrant pain R10.11 ; Depression, unspecified depression type F32.9 ; Low back pain M54.5 ; Primary insomnia F51.01 ; Irritable bowel syndrome with diarrhea K58.0 ; Migraine without aura and with status migrainosus, not intractable G43.001 and Breast cancer screening Z12.39 [place] [id number] [place] [address] 65434- 7113 Apr, [place] [id number] [place] [address] 35314- 9743 Apr, Migraine without aura and with status migrainosus, not intractable G43.001 [place] [id number] [place] [address] 85969- 3581 March, [place] [id number] [place] [address] 95478- 5505 Feb, [place] [id number] [place] [address] 02072- 0860 Feb, [facility] [place] [id number] [place] [address] 17434 -4476 14 Feb, 2017 Sore throat J02.9 and Acute upper respiratory infection, unspecified J06.9 [place] [id number] [place] [address] 18049- 5639 12 Feb, 2017 Dental examination Z01.20 and Supereruption K00.6 [facility] [address] [place] [address] Feb, Needlestick injury accident W27.3XXA and Employee exposure to blood Z57.8 [facility] [address] 57131- 7885 05 Feb, 2017 Dental examination Z01.20 [facility] [address] 09805- 4065 28 Dec, 2016 Low back pain M54.5 [facility] [address] 41547- 7862 27 Dec, 2016 Acute upper respiratory infection, unspecified J06.9 and Other viral agents as the cause of diseases classified elsewhere B97.89 [facility] [address] [id number] 23 Dec, 2016 Dental examination Z01.20 [facility] [address] 95152 -0281 16 Dec, 2016 Gastroenteritis K52.9 [place] [address] 80745- 4549 10 Dec, 2016 Plantar fasciitis of left foot M72.2 [place] [address] 91966- 5065 01 Dec, 2016 Low back pain M54.5 [place] [address] 20066- 6537 Nov, Depression, unspecified depression type F32.9 ; Low back pain M54.5 ; Primary insomnia F51.01 ; Irritable bowel syndrome with diarrhea K58.0 ; Pain of left heel M79.672 and Migraine without aura and with status migrainosus, not intractable G43.001 [facility] [address] 44999- 3089 Nov, Acute pain of right knee M25.561 and Primary insomnia F51.01 [place] [address] 98793- 8392 Oct, [facility] [address] [place] [address] 11243- 8596 Oct, Urinary pain R30.9 [facility] [id number] [place] [address] 38250 -6063 Oct, Acute recurrent maxillary sinusitis J01.01 [facility] [address] 81188- 3701 Sep, Acute pain of right knee M25.561 [place] [id number] [place] [address] 90795- 9682 Sep, [facility] [address] 51045- 9033 Sep, Arthralgia, unspecified joint M25.50 [place] [address] 38312- 2788 Sep, Hives L50.9 and Arthralgia, unspecified joint M25.50 [facility] [id number] [place] [address] 57172- 9541 16 Sep, 2016 [place] [id number] [place] [address] 59510- 1996 15 Sep, 2016 Depression, unspecified depression type F32.9 ; Primary insomnia F51.01 ; Irritable bowel syndrome with diarrhea K58.0 ; Encounter to establish care Z76.89 and Increased urinary frequency R35.0 [facility] [address] [place] [address] 20913 -4354 05 Sep, 2016 Acute suppurative otitis media of right ear without spontaneous rupture of tympanic membrane, recurrence not specified H66.001 and Acute non-recurrent maxillary sinusitis J01.00 [facility] [address] [place] [address] 18465 -4280 03 Sep, 2016 Cough R05 [facility] [id number] [place] [address] [id number] Aug, Encounter for immunization Z23 [facility] [address] [facility] [id number] [address] Aug, [facility] [address] [address] [address] Aug, Kyphosis of cervical region, unspecified kyphosis type M40.[id number] [place] [address] [id number] Jul, Low back pain M54.5 and Depression, unspecified depression type F32.[address] [id number] [id number] Jun, Strep throat J02.0 [place] [id number] [place] [address] [id number] Jun, Dental examination Z01.20 [id number] [place] [address] [id number] May, [address] [id number] Apr, [id number] [place] [address] [id number] March, Depression, unspecified depression type F32.9 [id number] [place] [address] [id number] Feb, Routine lab draw Z00.00 ; Obesity E66.9 and Swelling of ankle M25.473 [id number] [place] [address] [id number] Jan, GE (gastroenteritis) K52.9 [id number] [place] [address] [id number] Nov, Sinusitis J32.9 ; Allergic rhinitis J30.9 and Otitis externa, left H60.92 [id number] [place] [address] [id number] Sep, Cough R05 IMMUNIZATIONS No Known Immunizations SOCIAL HISTORY Never Assessed REASON FOR VISIT Jaw pain, facial fullness/tenderness, sinus drainage, cough started yesterday JStrasserRN PLAN OF CARE Activity Details Follow Up prn. if not improving with PCP or reg follow up Reason: VITAL SIGNS Height 69 in 2018-01-11 Weight 289.6 lbs 2018-01-11 Temperature 98.4 degrees Fahrenheit 2018-01-11 Heart Rate 88 bpm 2018-01-11 Respiratory Rate 20 2018-01-11 BMI 42.76 kg/m2 2018-01-11 Blood pressure systolic 130 mmHg 2018-01-11 Blood pressure diastolic 90 mmHg 2018-01-11 MEDICATIONS Medication Instructions Dosage Frequency Start Date End Date Duration Status Cymbalta 30 MG Orally Once a day 1 capsule 24h March, Active Cymbalta 60 mg Orally Once a day 1 capsule 24h Aug, 30 day(s) Active Protonix 40 mg Orally Once a day 1 tablet 24h Aug, 30 day(s) Active Ambien CR 12.5 MG Orally Once a day 1 tablet at bedtime as needed 24h 28 days Not-Taking Bentyl 10 mg Orally 4 times a day 1 tablet 6h Sep, Active Flonase 50 MCG/ACT Nasally twice a day 1 spray in each nostril 12h Jan, 30 day(s) Active Ambien 10 mg Orally Once a day 1 tablet at bedtime as needed 24h Nov, 28 days Active Tnusveafln-JPMR-Bvniznat 50-325-40 MG Orally every 4 hrs 2 at onset then one every four max 6 daily 4h Sep, Active Fish Oil 1000 MG Orally 2 times a day 1 capsule 12h Active Calcium + D3 600-200 MG-UNIT Orally 2 times a day 1 tablet with a meal 12h Active Hydrocodone-Acetaminophen 7.5-325 MG Orally 3 times a day 1 tablet as needed 8h Dec, 28 days Active RESULTS No Results PROCEDURES [...]
--- OUTSIDE RECORDS SUMMARY | 2018-05-31 09:46 | XMS REPORT ---
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 Name Role Phone ЮЛИЯ JACOBSNETTE Unavailable PROBLEMS Type Condition ICD9-CM Code VKW28-SF Code Onset Dates Condition Status SNOMED Code Problem Depression, unspecified depression type F32.9 Active 10007392 Problem Irritable bowel syndrome with diarrhea K58.0 Active 279257294 Problem Low back pain M54.5 Active 736755018 Problem Mood disorder F39 Active 19395109 Problem Morbid obesity due to excess calories E66.01 Active 051987447 Problem Migraine without aura and with status migrainosus, not intractable G43.001 Active 52853941 Problem Primary insomnia F51.01 Active 4728584 Problem Dental caries K02.9 Active 52778022 Problem Pain of left heel M79.672 Active 9013877703603714 ALLERGIES No Information SOCIAL HISTORY Never Assessed PLAN OF CARE VITAL SIGNS MEDICATIONS Medication Instructions Dosage Frequency Start Date End Date Duration Status Hydrocodone-Acetaminophen 7.5-325 MG Orally 3 times a day 1 tablet as needed 8h March, 28 Active RESULTS No Results PROCEDURES No Known procedures IMMUNIZATIONS No Known Immunizations MEDICAL (GENERAL) HISTORY Type Description Date Medical History irritable bowel syndrome Medical History depression Medical History anxiety Medical History chronic idiopathic hives Surgical History tubal ligation 1999 Surgical History partial hysterectomy s/p enlarged uterus due to fibroids, excessive bleeding 2001 Surgical History colonoscopy--polyps 2011 Hospitalization History childbirth, surgeries Hospitalization History kidney infection during 1993
--- OUTSIDE RECORDS SUMMARY | 2018-05-31 09:46 | XMS REPORT ---
Author Author JASIEL JACOBS Organization [facility] Address [address] [place] [address] Care Team Providers Care Hospice Plan Administrator Name Role Phone JACOBS, JASIEL Unavailable PROBLEMS Type Condition ICD9-CM Code GJT31-XH Code Onset Dates Condition Status SNOMED Code Problem Depression, unspecified depression type F32.9 Active 34466894 Problem Dental caries K02.9 Active 80397178 Problem Pain of left heel M79.672 Active 5978948783409403 Problem Irritable bowel syndrome with diarrhea K58.0 Active 260644133 Problem Low back pain M54.5 Active 486530471 Problem Migraine without aura and with status migrainosus, not intractable G43.001 Active 17766653 Problem Primary insomnia F51.01 Active 4545734 ALLERGIES Unknown Allergies SOCIAL HISTORY No smoking Hx information available PLAN OF CARE VITAL SIGNS MEDICATIONS Medication Instructions Dosage Frequency Start Date End Date Duration Status Ambien CR 12.5 MG Orally Once a day 1 tablet at bedtime as needed 24h Nov, Active Hydrocodone-Acetaminophen 7.5-325 MG Orally 3 times a day 1 tablet as needed 8h Nov, Active RESULTS No Results PROCEDURES No Known procedures IMMUNIZATIONS No Known Immunizations
--- OUTSIDE RECORDS SUMMARY | 2018-05-31 09:46 | XMS REPORT ---
Author Author JASIEL Boateng [facility] Address [address] [place] [address] Care Team Providers Care Teradata Developer Name Role Phone JASIEL Boateng Unavailable PROBLEMS Type Condition ICD9-CM Code UHU92-ZG Code Onset Dates Condition Status SNOMED Code Problem Low back pain M54.5 Active 374865367 Problem Primary insomnia F51.01 Active 2410346 Problem Irritable bowel syndrome with diarrhea K58.0 Active 739992264 Problem Depression, unspecified depression type F32.9 Active 25586487 Problem Other chronic pain G89.29 Active 65472122 Problem Mood disorder F39 Active 50839562 Problem Pain of left heel M79.672 Active 5235436253366258 Problem Migraine without aura and with status migrainosus, not intractable G43.001 Active 53180537 Problem Morbid obesity due to excess calories E66.01 Active 878711744 Problem Dental caries K02.9 Active 94862507 ALLERGIES Substance Reaction Event Type Date Status Ciprofloxacin hives Drug Allergy Apr, Active ENCOUNTERS Encounter Location Date Diagnosis [facility] [address] [facility] [id number] [id number] March, [facility] [id number] [place] [address] Feb, [facility] [address] [address] Jan, Dental examination Z01.20 [facility] [address] [place] [id number] [place] [address] 79385- 2571 Jan, Dental examination Z01.20 [facility] [address] [id number] [address] Jan, Low back pain M54.5 [facility] [address] [place] [id number] [place] [address] 79525- 8016 Jan, Acute laryngopharyngitis J06.0 and BMI 40.0-44.9, adult Z68.41 [facility] [place] [address] [address] Jan, Seasonal allergic rhinitis, unspecified trigger J30.2 and BMI 40.0-44.9, adult Z68.41 [facility] [place] [address] [address] Jan, Viral URI J06.9 ; Seasonal allergic rhinitis, unspecified trigger J30.2 and BMI 40.0-44.9, adult Z68.41 [place] [address] [address] Jan, [place] [address] [address] Jan, Primary insomnia F51.01 and Cough R05 [facility] [place] [address] [address] Jan, Viral URI J06.9 [place] [address] [address] Jan, Sacral pain M53.3 [facility] IN [address] [address] Jan, Nasal congestion R09.81 and BMI 40.0-44.9, adult Z68.41 [place] [address] [address]85 Dec, [place] [address] [address] Dec, Low back pain M54.5 [place] [address] [address] Dec, Primary insomnia F51.01 [place] [address] [place] [id number] [place] [address] 9[address]- 9820 Nov, [place] [address] [address] Nov, Migraine without aura and with status migrainosus, not intractable G43.001 ; Low back pain M54.5 and Primary insomnia F51.01 [place] [address] [address] Nov, Routine gynecological examination Z01.419 ; Routine screening for STI (sexually transmitted infection) Z11.3 and HPV in female B97.7 [place] [address] [address] Oct, Low back pain M54.5 ; Other chronic pain G89.29 ; Pain in right hip M25.551 ; Pain in left hip M25.552 ; Pain in right knee M25.561 and Pain in left knee M25.562 [place] [address] [address] Oct, Primary insomnia F51.01 [place] [address] 76994- 7560 Oct, Low back pain M54.5 [place] [address] [address] Sep, Encounter for immunization Z23 [place] [address] [address] Aug, Low back pain M54.5 and Primary insomnia F51.01 [place] [address] [address] Aug, Low back pain M54.5 and Primary insomnia F51.01 [facility] IN [facility] [address] [address] Aug, Gastroenteritis and colitis, viral A08.4 [place] [address] [address]- [address] 04 Aug, 2017 [facility] [id number] [place] [address] 21572- 5564 03 Aug, 2017 Hot flashes R23.2 ; Morbid obesity due to excess calories E66.01 and Mood disorder F39 [facility] [id number] [place] [address] 24868- 3820 02 Aug, 2017 Hot flashes R23.2 ; Morbid obesity due to excess calories E66.01 and Mood disorder F39 [facility] [address] [place] [address] 42367- 6720 07 Jul, 2017 Low back pain M54.5 [facility] IN [facility] [address] [place] [id number] [place] [address]86 -7084 06 Jul, 2017 Lipoma of right lower extremity D17.23 and Acute left- sided thoracic back pain M54.6 [facility] [address] [place] [id number] [place] [address] 28454- 9721 Jun, Low back pain M54.5 [place] [address] [place] [id number] [place] [address] 18479- 0616 May, Low back pain M54.5 [place] [address] [place] [id number] [place] [address] 04324- 7716 Apr, Right upper quadrant pain R10.11 ; Depression, unspecified depression type F32.9 ; Low back pain M54.5 ; Primary insomnia F51.01 ; Irritable bowel syndrome with diarrhea K58.0 ; Migraine without aura and with status migrainosus, not intractable G43.001 and Breast cancer screening Z12.39 [facility] [address] [place] [id number] [place] [address] 17632- 3137 Apr, [place] [address] [place] [id number] [place] [address] 68958- 7577 16 Apr, 2017 Migraine without aura and with status migrainosus, not intractable G43.001 [facility] [address] [place] [id number] [place] [address] 37576- 4373 March, [facility] [id number] [place] [address] 93097- 9335 Feb, [facility] [address] [place] [id number] [place] [address] 79576- 6675 Feb, [facility] [address] [place] [address] [id number] [place] [address] 66169 -7515 Feb, Sore throat J02.9 and Acute upper respiratory infection, unspecified J06.9 [facility] [address] [place] [id number] [place] [address] 07312- 5838 12 Feb, 2017 Dental examination Z01.20 and Supereruption K00.6 [facility] [address] [place] [id number] [place] [address] 84162 -1534 06 Feb, 2017 Needlestick injury accident W27.3XXA and Employee exposure to blood Z57.8 [place] [address] [place] [id number] [place] [address] 36245- 1424 05 Feb, 2017 Dental examination Z01.20 [place] [address] [place] [id number] [place] [address] 20976- 1378 28 Dec, 2016 Low back pain M54.5 [facility] [address] [place] [id number] [place] [address] 16503- 5812 27 Dec, 2016 Acute upper respiratory infection, unspecified J06.9 and Other viral agents as the cause of diseases classified elsewhere B97.89 [facility] [address] [place] [id number] [place] [address] [phone] 23 Dec, 2016 Dental examination Z01.20 [facility] [address] [place] [id number] [place] [address] 50412 -2335 16 Dec, 2016 Gastroenteritis K52.9 [facility] [address] [place] [id number] [place] [address] 28608- 2023 10 Dec, 2016 Plantar fasciitis of left foot M72.2 [facility] [address] [place] [id number] [place] [address] 24883- 9414 Dec, Low back pain M54.5 [facility] [address] [place] [id number] [place] [address] 08160- 5195 Nov, Depression, unspecified depression type F32.9 ; Low back pain M54.5 ; Primary insomnia F51.01 ; Irritable bowel syndrome with diarrhea K58.0 ; Pain of left heel M79.672 and Migraine without aura and with status migrainosus, not intractable G43.001 [place] [address] [place] [id number] [place] [address] 57234- 6031 Nov, Acute pain of right knee M25.561 and Primary insomnia F51.01 [place] [address] [place] [id number] [place] [address] 94691- 4070 Oct, [place] [address] [address] Oct, Urinary pain R30.9 [facility] [address] [place] [id number] [place] [address] 30483 -1009 Oct, Acute recurrent maxillary sinusitis J01.01 [place] [address] 20750- 3248 Sep, Acute pain of right knee M25.561 [place] [address] [place] [id number] [place] [address] 85238- 1824 Sep, [place] [address] 84707- 5158 Sep, Arthralgia, unspecified joint M25.50 [facility] [address] [place] [id number] [place] [address] 13169- 1804 Sep, Hives L50.9 and Arthralgia, unspecified joint M25.50 [facility] [address] [place] [id number] [place] [address] 99049- 5747 16 Sep, 2016 [facility] [address] 10050- 6559 Sep, Depression, unspecified depression type F32.9 ; Primary insomnia F51.01 ; Irritable bowel syndrome with diarrhea K58.0 ; Encounter to establish care Z76.89 and Increased urinary frequency R35.0 [facility] [address] [place] [id number] [place] [address] 11457 -9389 05 Sep, 2016 Acute suppurative otitis media of right ear without spontaneous rupture of tympanic membrane, recurrence not specified H66.001 and Acute non-recurrent maxillary sinusitis J01.00 [facility] [address] [place] [id number] [place] [address] 38659 -2957 Sep, Cough R05 [place] [address] [id number] Aug, Encounter for immunization Z23 [facility] [address] 13591- [address]119 Aug, [facility] [address] [address] Aug, Kyphosis of cervical region, unspecified kyphosis type M40.202 [place] [address] [place] [id number] [place] [phone] Jul, Low back pain M54.5 and Depression, unspecified depression type F32.9 [facility] [place] [address] [id number] [place] [phone] Jun, Strep throat J02.0 [facility] [place] [address] [facility] [place] [id number] [place] [id number] Jun, Dental examination Z01.20 [facility] [id number] [place] [address] [phone] May, [facility] [place] [address] [id number] Apr, [facility] [place] [address] [place] [id number] [place] [address] [phone] March, Depression, unspecified depression type F32.9 [facility] [address] [id number] Feb, Routine lab draw Z00.00 ; Obesity E66.9 and Swelling of ankle M25.473 [place] [address] [facility] [id number] [phone] Jan, GE (gastroenteritis) K52.9 [place] [address] [id number] [id number] Nov, Sinusitis J32.9 ; Allergic rhinitis J30.9 and Otitis externa, left H60.[address] [id number] [phone] Sep, Cough R05 IMMUNIZATIONS No Known Immunizations SOCIAL HISTORY Never Assessed REASON FOR VISIT Requesting referral - Pt needs to get a sleep study and a mammogram. - Mj [facility]URNER PLAN OF CARE Activity Details Follow Up 3 Months Reason:chm VITAL SIGNS Height 69 in 2017-05-04 Weight 280.3 lbs 2017-05-04 Temperature 98.0 degrees Fahrenheit 2017-05-04 Heart Rate 100 bpm 2017-05-04 Respiratory Rate 20 2017-05-04 BMI 41.39 kg/m2 2017-05-04 Blood pressure systolic 116 mmHg 2017-05-04 Blood pressure diastolic 83 mmHg 2017-05-04 MEDICATIONS Medication Instructions Dosage Frequency Start Date End Date Duration Status Xhfiiuegbz-ONUW-Uvfgepcz 50-325-40 MG Orally every 4 hrs 2 at onset then one every four max 6 daily 4h Sep, Active Bentyl 10 mg Orally 4 times a day 1 tablet 6h Sep, Active Cymbalta 30 MG Orally Twice a day 1 capsule 12h March, Active Hydrocodone-Acetaminophen 7.5-325 MG Orally 3 times a day 1 tablet as needed 8h Apr, Active Ambien 10 mg Orally Once a day 1 tablet at bedtime as needed 24h Nov, Active RESULTS Name Result Date Reference Range Ultrasound : Abdomen, LIMITED (specify organ) 2017-05-18 Mammogram, Bilateral Screening 2017-05-18 PROCEDURES No Known procedures INSTRUCTIONS MEDICATIONS ADMINISTERED No Known Medications MEDICAL (GENERAL) HISTORY Type Description Date Medical History irritable bowel syndrome Medical History depression Medical History anxiety Medical History chronic idiopathic hives Surgical History tubal ligation 1999 Surgical History partial hysterectomy s/p enlarged uterus due to fibroids, excessive bleeding 2001 Surgical History colonoscopy--polyps 2012 Hospitalization History childbirth, surgeries Hospitalization History kidney infection during 1994
--- OUTSIDE RECORDS SUMMARY | 2018-05-31 09:46 | XMS REPORT ---
Author Author XIANG JERNIGAN [facility] eClinicalWorks Address Unknown Phone Unavailable Care Team Providers Care Vendor Representatives Name Role Phone XIANG JERNIGAN CP Unavailable Allergies No Known Allergies Problems Problem Type Condition Code Onset Dates Condition Status Problem Depression, unspecified depression type F32.9 Active Assessment Cough R05 Active Problem Low back pain M54.5 Active Medications No Known Medications Procedures Procedure Coding System Code Date THER/PROPH/DIAG INJ, SC/IM CPT-4 13620 Sep 15, 2016 SOLUMEDROL (UP TO 125 MG) CPT-4 J2930 Sep 15, 2016 Results No Known Results Summary Purpose eClinicalWorks Submission
--- OUTSIDE RECORDS SUMMARY | 2018-05-31 09:46 | XMS REPORT ---
Author Author CAITLYN MEJIAS Organization [facility] Address [address] [place] [address] Care Team Providers Care Vehicle Upholsterer Name Role Phone CAITLYN MEJIAS Unavailable PROBLEMS Type Condition ICD9-CM Code [id number] Code Onset Dates Condition Status SNOMED Code Problem Irritable bowel syndrome with diarrhea K58.0 Active 291385568 Problem Migraine without aura and with status migrainosus, not intractable G43.001 Active 11689757 Problem Primary insomnia F51.01 Active 3459150 Problem Depression, unspecified depression type F32.9 Active 36669188 Problem Low back pain M54.5 Active 087792110 Problem Observed sleep apnea G47.30 Active 01042873 Problem Other chronic pain G89.29 Active 86288004 Problem Dental caries K02.9 Active 39505314 Problem Pain of left heel M79.672 Active [id number] Problem Mood disorder F39 Active 59382703 Problem Morbid obesity due to excess calories E66.01 Active 152007614 ALLERGIES No Information ENCOUNTERS Encounter Location Date Diagnosis [facility] [id number] [address] Apr, Low back pain M54.5 [facility] [id number] [address] Apr, Pain, dental K08.89 [facility] [address] [id number] [id number] March, Dental caries K02.9 [facility] [id number] [place] [address]27- [address]80 March, [facility] [id number] [place] [address] 65528- 0875 March, [facility] [id number] [place] [address] 13849- 3611 March, [facility] [id number] [place] [address] 11408- 0382 March, Low back pain M54.5 and Primary insomnia F51.01 [facility] [id number] [place] [id number] March, Dental examination Z01.20 [facility] [address] [address] Feb, [facility] [address] [address] Feb, Low back pain M54.5 [facility] [address] [id number] Feb, Dental examination Z01.20 [facility] [id number] [place] [address] 71918- 5860 Feb, Primary insomnia F51.01 [facility] [address] [address] Jan, BMI 40.0-44.9, adult Z68.41 and Observed sleep apnea G47.30 [facility] [id number] [place] [address] 39977- 8683 Jan, Dental examination Z01.20 [facility] [id number] [place] [address] 20789- 2561 Jan, Dental examination Z01.20 [facility] [id number] [place] [address] 51012- 2150 Jan, Low back pain M54.5 [facility] [address] [address] Jan, Acute laryngopharyngitis J06.0 and BMI 40.0-44.9, adult Z68.41 [facility] [id number] [place] [address]01 -[address]776 Jan, Seasonal allergic rhinitis, unspecified trigger J30.2 and BMI 40.0-44.9, adult Z68.41 [facility] [address] [address] Jan, Viral URI J06.9 ; Seasonal allergic rhinitis, unspecified trigger J30.2 and BMI 40.0-44.9, adult Z68.41 [place] [address] 8[address]- [address] Jan, [place] [address] [address]- [address]34 Jan, Primary insomnia F51.01 and Cough R05 [facility] [place] [address] [address] Jan, Viral URI J06.9 [place] [address] 74371- 4983 Jan, Sacral pain M53.3 [facility] [place] [address] 86[address]1766 Jan, Nasal congestion R09.81 and BMI 40.0-44.9, adult Z68.41 [place] [address] 74496- 1158 Dec, [place] [address] 6[address]76- 4914 Dec, Low back pain M54.5 [place] [address] 83425- 2064 Dec, Primary insomnia F51.01 [place] [address] 14785- 5757 Nov, [place] [address] 42240- 6768 Nov, Migraine without aura and with status migrainosus, not intractable G43.001 ; Low back pain M54.5 and Primary insomnia F51.01 [facility] [id number] [place] [address] 07881- 4105 09 Nov, 2017 Routine gynecological examination Z01.419 ; Routine screening for STI (sexually transmitted infection) Z11.3 and HPV in female B97.7 [place] [id number] [place] [address] 13825- 3826 14 Oct, 2017 Low back pain M54.5 ; Other chronic pain G89.29 ; Pain in right hip M25.551 ; Pain in left hip M25.552 ; Pain in right knee M25.561 and Pain in left knee M25.562 [place] [address] 23407- 3933 13 Oct, 2017 Primary insomnia F51.01 [place] [address] 80335- 6246 Oct, Low back pain M54.5 [place] [address] 59139- 4115 16 Sep, 2017 Encounter for immunization Z23 [place] [address] 90367- 9112 19 Aug, 2017 Low back pain M54.5 and Primary insomnia F51.01 [place] [address] 60250- 6712 10 Aug, 2017 Low back pain M54.5 and Primary insomnia F51.01 [facility] [address] 148[address]20[address] 05 Aug, 2017 Gastroenteritis and colitis, viral A08.4 [place] [address] 10088- 0102 04 Aug, 2017 [place] [address] 61026- 7719 03 Aug, 2017 Hot flashes R23.2 ; Morbid obesity due to excess calories E66.01 and Mood disorder F39 [place] [address] 43725- 5491 Aug, Hot flashes R23.2 ; Morbid obesity due to excess calories E66.01 and Mood disorder F39 [facility] [id number] [place] [address] 68595- 6203 07 Jul, 2017 Low back pain M54.5 [facility] [id number] [place] [address] 55820 -3633 Jul, Lipoma of right lower extremity D17.23 and Acute left- sided thoracic back pain M54.6 [place] [id number] [place] [address] 21380- 9487 Jun, Low back pain M54.5 [place] [id number] [place] [address] 70819- 0202 May, Low back pain M54.5 [place] [id number] [place] [address] 70878- 3685 Apr, Right upper quadrant pain R10.11 ; Depression, unspecified depression type F32.9 ; Low back pain M54.5 ; Primary insomnia F51.01 ; Irritable bowel syndrome with diarrhea K58.0 ; Migraine without aura and with status migrainosus, not intractable G43.001 and Breast cancer screening Z12.39 [facility] [address] [address] Apr, [facility] [id number] [place] [address] 04450- 9928 Apr, Migraine without aura and with status migrainosus, not intractable G43.001 [facility] [address] [address] March, [place] [id number] [place] [address] 16754- 8237 Feb, [facility] [address], [place] [address] Feb, [facility] [id number] [place] [address] 56957 -7451 14 Feb, 2017 Sore throat J02.9 and Acute upper respiratory infection, unspecified J06.9 [facility] [id number] [place] [address] 39475- 5854 12 Feb, 2017 Dental examination Z01.20 and Supereruption K00.6 [facility] [address] 35[address]25[address] 06 Feb, 2017 Needlestick injury accident W27.3XXA and Employee exposure to blood Z57.8 [place] [address] 93049- 9208 05 Feb, 2017 Dental examination Z01.20 [facility] [address] 61772- 5743 28 Dec, 2016 Low back pain M54.5 [place] [address] 00241- 0411 27 Dec, 2016 Acute upper respiratory infection, unspecified J06.9 and Other viral agents as the cause of diseases classified elsewhere B97.89 [facility] [address] [id number] Dec, 2016 Dental examination Z01.20 [facility] [id number] [place] [address] 77318 -8706 16 Dec, 2016 Gastroenteritis K52.9 [place] [address] 88776- 9804 10 Dec, 2016 Plantar fasciitis of left foot M72.2 [place] [address] 32973- 0173 01 Dec, 2016 Low back pain M54.5 [place] [address] 68001- 8337 Nov, Depression, unspecified depression type F32.9 ; Low back pain M54.5 ; Primary insomnia F51.01 ; Irritable bowel syndrome with diarrhea K58.0 ; Pain of left heel M79.672 and Migraine without aura and with status migrainosus, not intractable G43.001 [place] [address] 83570- 2123 Nov, Acute pain of right knee M25.561 and Primary insomnia F51.01 [place] [id number] [place] [address] 66638- 4027 Oct, [place] [address] 50461- 3776 Oct, Urinary pain R30.9 [facility] [address] 68[address] -8819 Oct, Acute recurrent maxillary sinusitis J01.01 [place] [id number] [place] [address] 44503- 7469 Sep, Acute pain of right knee M25.561 [place] [id number] [place] [address] 20007- 0724 Sep, [place] [id number] [place] [address] 80893- 3839 Sep, Arthralgia, unspecified joint M25.50 [place] [id number] [place] [address] 37594- 2991 Sep, Hives L50.9 and Arthralgia, unspecified joint M25.50 [place] [id number] [place] [address] 65457- 0416 16 Sep, 2016 [place] [id number] [place] [address] 31437- 4377 15 Sep, 2016 Depression, unspecified depression type F32.9 ; Primary insomnia F51.01 ; Irritable bowel syndrome with diarrhea K58.0 ; Encounter to establish care Z76.89 and Increased urinary frequency R35.0 [facility] [id number] [place] [address] 09762 -9892 Sep, Acute suppurative otitis media of right ear without spontaneous rupture of tympanic membrane, recurrence not specified H66.001 and Acute non-recurrent maxillary sinusitis J01.00 [facility] [id number] [place] [address] 95371 -8360 Sep, Cough R05 [facility] [id number] [place] [address] [phone] Aug, Encounter for immunization Z23 [facility] [address] 71282- 9414 Aug, [facility] [address] 51150 -7635 Aug, Kyphosis of cervical region, unspecified kyphosis type M40.202 [facility] [id number] [place] [address] [id number] Jul, Low back pain M54.5 and Depression, unspecified depression type F32.9 [facility] [id number] [place] [id number] Jun, Strep throat J02.[address] [id number] Jun, Dental examination Z01.20 [facility] [id number] [place] [address] [id number] May, [place] [id number] [place] [address] [phone] Apr, [place] [id number] [place] [address] [id number] March, Depression, unspecified depression type F32.9 [place] [id number] [place] [address] [id number] Feb, Routine lab draw Z00.00 ; Obesity E66.9 and Swelling of ankle M25.473 [facility] [id number] [place] [address] [id number] Jan, GE (gastroenteritis) K52.[address] [id number] Nov, Sinusitis J32.9 ; Allergic rhinitis J30.9 and Otitis externa, left H60.92 [facility] [address] [facility] [id number] [place] [phone] Sep, Cough R05 IMMUNIZATIONS No Known Immunizations SOCIAL HISTORY Never Assessed REASON FOR VISIT Controlled Refill Request PLAN OF CARE VITAL SIGNS MEDICATIONS Medication Instructions Dosage Frequency Start Date End Date Duration Status Hydrocodone-Acetaminophen 7.5-325 MG Orally 3 times a day 1 tablet as needed 8h Oct, 28 days Active RESULTS No Results PROCEDURES [...]
--- OUTSIDE RECORDS SUMMARY | 2018-05-31 09:46 | XMS REPORT ---
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 [address]-87 800 MG Orally Three times a day Aug 10, [address] [facility] [address]-18 30 MG Orally Twice a day March 16, 2016 1 capsule Tylenol PM Extra Strength [facility] [address]-78 500-25 MG Orally Once a day 1 tablet at bedtime as needed Procedures Procedure Coding System Code Date Office Visit, Est Pt., Level 3 CPT-4 76697 Aug 10, 2016 Vital Signs Date/Time: Aug 10, 2016 Cardiac Monitoring Heart Rate 92 bpm Weight 278 lbs Height 69 in BMI 41.05 Index Blood Pressure Diastolic 76 mmHg Blood Pressure Systolic 128 mmHg Results No Known Results Summary Purpose [employer] Submission
--- OUTSIDE RECORDS SUMMARY | 2018-05-31 09:46 | XMS REPORT ---
Author Author CECY TOMAS Organization [employer] Address Unknown Phone Unavailable Care Team Providers Care Marble Worker Name Role Phone CECY TOMAS CP Unavailable Allergies, Adverse Reactions, Alerts Substance Reaction Event Type Cipro Info Not Available Drug Allergy Problems Problem Type Condition Code Onset Dates Condition Status Assessment Allergic rhinitis J30.9 Active Assessment Otitis externa, left H60.92 Active Assessment Sinusitis J32.9 Active Medications Medication Code System Code Instructions Start Date End Date Status Dosage Zithromax Z-Eliecer [facility] [address]-09 250 MG Orally Once a day Nov 17, 2015 Nov 22, 2015 2 tablets on the first day, then 1 tablet daily for 4 days Flonase Allergy Relief [facility] [address]-29 50 MCG/ACT Nasally 2 times a day Nov 17, 2015 1 spray in each nostril Medrol (Eliecer) [facility] [address]-58 4 MG Orally Nov 17, 2015 take each days dose at the same time daily Procedures Procedure Coding System Code Date Office Visit, Est Pt., Level 3 CPT-4 62998 Nov 17, 2015 Vital Signs Date/Time: Nov 17, 2015 Temperature 97.9 F Weight 265.2 lbs Height 69 in BMI 39.16 Index Blood Pressure Diastolic 90 mmHg Blood Pressure Systolic 112 mmHg Cardiac Monitoring Heart Rate 84 bpm Results No Known Results Summary Purpose [employer] Submission
--- OUTSIDE RECORDS SUMMARY | 2018-05-31 09:47 | XMS REPORT ---
Author Author JASIEL JACOBS Organization [facility] Address [address] [place] [address] Care Team Providers Care Plasma Center Technician Name Role Phone JASIEL JACOBS Unavailable PROBLEMS Type Condition ICD9-CM Code TRL91-GA Code Onset Dates Condition Status SNOMED Code Problem Depression, unspecified depression type F32.9 Active 43831787 Problem Dental caries K02.9 Active 63859237 Problem Pain of left heel M79.672 Active 7221985106830188 Problem Irritable bowel syndrome with diarrhea K58.0 Active 542987730 Problem Low back pain M54.5 Active 426909021 Problem Migraine without aura and with status migrainosus, not intractable G43.001 Active 04002379 Problem Primary insomnia F51.01 Active 6147222 ALLERGIES Unknown Allergies SOCIAL HISTORY No smoking Hx information available PLAN OF CARE VITAL SIGNS MEDICATIONS Unknown Medications RESULTS Name Result Date Reference Range UA LONG DIP (IN HOUSE) 2016-11-07 Lot # [id number] Exp date 10/2017 Clarity cloudy Color yellow Odor yes GLU Negative MAI Negative KET Negative SG >=1.030 BLO 1+ pH 6.0 Protein 1+ URO 0.2 NIT Negative KALIA Trace Lot # [id number] Exp date 06/2017 PROCEDURES Procedure Date Ordered Related Diagnosis Body Site URINALYSIS, AUTO, W/O SCOPE Nov 07, 2016 IMMUNIZATIONS No Known Immunizations
--- OUTSIDE RECORDS SUMMARY | 2018-05-31 09:47 | XMS REPORT ---
Author Author JASIEL JACOBS Organization [facility] Address [address] [place] [address] Care Team Providers Care Librarian Special Library Name Role Phone ЮЛИЯ JACOBSNETTE Unavailable PROBLEMS Type Condition ICD9-CM Code RQW89-XK Code Onset Dates Condition Status SNOMED Code Problem Depression, unspecified depression type F32.9 Active 57321556 Problem Dental caries K02.9 Active 02183619 Problem Pain of left heel M79.672 Active 1122157197129222 Problem Irritable bowel syndrome with diarrhea K58.0 Active 390502714 Problem Low back pain M54.5 Active 868510947 Problem Migraine without aura and with status migrainosus, not intractable G43.001 Active 51660222 Problem Primary insomnia F51.01 Active 5071537 ALLERGIES Unknown Allergies SOCIAL HISTORY No smoking Hx information available PLAN OF CARE VITAL SIGNS MEDICATIONS Medication Instructions Dosage Frequency Start Date End Date Duration Status Diflucan 100 MG Orally one tablet daily 1 tablet Oct, Nov, 07 days Active Macrobid 100 MG Orally every 12 hrs 1 capsule with food 12h Oct, Nov, 7 day(s) Active RESULTS No Results PROCEDURES No Known procedures IMMUNIZATIONS No Known Immunizations
--- OUTSIDE RECORDS SUMMARY | 2018-05-31 09:47 | XMS REPORT ---
Author Author CAITLYN MEJIAS Organization [facility] Address [address] [place] [address] Care Team Providers Care Bridge Toll Collector Name Role Phone CAITLYN MEJIAS Unavailable PROBLEMS Type Condition ICD9-CM Code BCB66-AC Code Onset Dates Condition Status SNOMED Code Problem Irritable bowel syndrome with diarrhea K58.0 Active 841234153 Problem Migraine without aura and with status migrainosus, not intractable G43.001 Active 58013565 Problem Primary insomnia F51.01 Active 2363426 Problem Depression, unspecified depression type F32.9 Active 65377841 Problem Low back pain M54.5 Active 639676338 Problem Observed sleep apnea G47.30 Active 58706039 Problem Other chronic pain G89.29 Active 73920600 Problem Dental caries K02.9 Active 12392283 Problem Pain of left heel M79.672 Active 6103340212112823 Problem Mood disorder F39 Active 95347655 Problem Morbid obesity due to excess calories E66.01 Active 104002345 ALLERGIES No Information ENCOUNTERS Encounter Location Date Diagnosis [facility] [id number] [place] [address] [id number] March, [facility] [address] [place] [address] [id number] March, Dental examination Z01.20 [facility] [address] [address] Feb, [facility] [id number] [place] [address] 16167- 8353 Feb, Low back pain M54.5 [facility] [address] [place] [address] [id number] Feb, Dental examination Z01.20 [facility] [id number] [place] [address] 67851- 3305 Feb, Primary insomnia F51.01 [facility] [id number] [place] [address] 53529- 9156 Jan, BMI 40.0-44.9, adult Z68.41 and Observed sleep apnea G47.30 [place] [id number] [place] [address] 74251- 0739 Jan, Dental examination Z01.20 [place] [address] [address] 20 Jan, 2018 Dental examination Z01.20 [place] [address] [address] 12 Jan, 2018 Low back pain M54.5 [place] [address] 6[address]- 1791 09 Jan, 2018 Acute laryngopharyngitis J06.0 and BMI 40.0-44.9, adult Z68.41 [facility] [address] [address] 08 Jan, 2018 Seasonal allergic rhinitis, unspecified trigger J30.2 and BMI 40.0-44.9, adult Z68.41 [facility] [id number] [place] [address] 25563 -4633 07 Jan, 2018 Viral URI J06.9 ; Seasonal allergic rhinitis, unspecified trigger J30.2 and BMI 40.0-44.9, adult Z68.41 [place] [id number] [place] [address] 81368- 4652 06 Jan, 2018 [place] [address] [address]- 5344 Jan, Primary insomnia F51.01 and Cough R05 [facility] [place] [id number] [place] [address] 86455 -7871 Jan, Viral URI J06.9 [place] [address] 55632- 7491 Jan, Sacral pain M53.3 [facility] [id number] [place] [address] 80754 -2747 Jan, Nasal congestion R09.81 and BMI 40.0-44.9, adult Z68.41 [facility] [id number] [place] [address] 54931- 5038 Dec, [facility] [address] [address]- 1816 Dec, Low back pain M54.5 [place] [address] 52584- 2748 Dec, Primary insomnia F51.01 [facility] [address] 16[address]- 4053 Nov, [place] [address] [address]70- 5545 Nov, Migraine without aura and with status migrainosus, not intractable G43.001 ; Low back pain M54.5 and Primary insomnia F51.01 [place] [address] 24172- 7976 Nov, Routine gynecological examination Z01.419 ; Routine screening for STI (sexually transmitted infection) Z11.3 and HPV in female B97.7 [place] [address] [address]60- 0850 Oct, Low back pain M54.5 ; Other chronic pain G89.29 ; Pain in right hip M25.551 ; Pain in left hip M25.552 ; Pain in right knee M25.561 and Pain in left knee M25.562 [place] [address] 00884- 7717 Oct, Primary insomnia F51.01 [facility] [id number] [place] [address] 30929- 1899 Oct, Low back pain M54.5 [place] [id number] [place] [address] 20443- 3555 16 Sep, 2017 Encounter for immunization Z23 [facility] [address] 03081- 6393 19 Aug, 2017 Low back pain M54.5 and Primary insomnia F51.01 [facility] [id number] [place] [address] 60028- 6629 10 Aug, 2017 Low back pain M54.5 and Primary insomnia F51.01 [facility] [address] 64891 -5722 05 Aug, 2017 Gastroenteritis and colitis, viral A08.4 [place] [id number] [place] [address] 69215- 8473 04 Aug, 2017 [place] [address] 43436- 1781 03 Aug, 2017 Hot flashes R23.2 ; Morbid obesity due to excess calories E66.01 and Mood disorder F39 [facility] [id number] [place] [address] 10545- 2914 02 Aug, 2017 Hot flashes R23.2 ; Morbid obesity due to excess calories E66.01 and Mood disorder F39 [facility] [id number] [place] [address] 50119- 6395 07 Jul, 2017 Low back pain M54.5 [facility] [id number] [place] [address] 47013 -6966 Jul, Lipoma of right lower extremity D17.23 and Acute left- sided thoracic back pain M54.6 [facility] [id number] [place] [address] 70863- 4445 Jun, Low back pain M54.5 [facility] [id number] [place] [address] 67084- 4985 May, Low back pain M54.5 [facility] [address] [place] [address]- [address] Apr, Right upper quadrant pain R10.11 ; Depression, unspecified depression type F32.9 ; Low back pain M54.5 ; Primary insomnia F51.01 ; Irritable bowel syndrome with diarrhea K58.0 ; Migraine without aura and with status migrainosus, not intractable G43.001 and Breast cancer screening Z12.39 [place] [address] 19873- 2661 Apr, [place] [address] 86240- 2439 Apr, Migraine without aura and with status migrainosus, not intractable G43.001 [place] [address] 43016- 0547 March, [address] [address]- [address] Feb, [place] [address] 23180- 6767 Feb, [facility] [address] [place] [address] 54486 -3998 Feb, Sore throat J02.9 and Acute upper respiratory infection, unspecified J06.9 [place] [id number] [place] [address] 86925- 9035 Feb, Dental examination Z01.20 and Supereruption K00.6 [facility] [id number] [place] [address] 21328 -0061 Feb, Needlestick injury accident W27.3XXA and Employee exposure to blood Z57.[address] [address]86- 3[address] Feb, Dental examination Z01.20 [place] [address] 60325- 9099 Dec, Low back pain M54.5 [place] [id number] [place] [address] 44078- 3938 Dec, Acute upper respiratory infection, unspecified J06.9 and Other viral agents as the cause of diseases classified elsewhere B97.89 [facility] [address] [place] [address] [id number] Dec, 2016 Dental examination Z01.20 [facility] [place] [id number] [place] [address] 98911 -9493 16 Dec, 2016 Gastroenteritis K52.9 [place] [address] 95079- 0471 10 Dec, 2016 Plantar fasciitis of left foot M72.2 [place] [id number] [place] [address] 83499- 8241 Dec, Low back pain M54.5 [place] [address] 33439- 2672 Nov, Depression, unspecified depression type F32.9 ; Low back pain M54.5 ; Primary insomnia F51.01 ; Irritable bowel syndrome with diarrhea K58.0 ; Pain of left heel M79.672 and Migraine without aura and with status migrainosus, not intractable G43.001 [place] [id number] [place] [address] 50021- 0323 Nov, Acute pain of right knee M25.561 and Primary insomnia F51.01 [place] [id number] [place] [address] 65859- 9522 Oct, [place] [id number] [place] [address] 17385- 7315 Oct, Urinary pain R30.9 [facility] [place] [id number] [place] [address] 78646 -8873 Oct, Acute recurrent maxillary sinusitis J01.01 [place] [id number] [place] [address] 68942- 0869 Sep, Acute pain of right knee M25.561 [place] [id number] [place] [address] 42068- 0391 Sep, [facility] [address] 8[address]13- 5101 Sep, Arthralgia, unspecified joint M25.50 [place] [address] 67945- 9736 Sep, Hives L50.9 and Arthralgia, unspecified joint M25.50 [place] [address] 51886- 2755 Sep, [place] [address] 86839- 9806 Sep, Depression, unspecified depression type F32.9 ; Primary insomnia F51.01 ; Irritable bowel syndrome with diarrhea K58.0 ; Encounter to establish care Z76.89 and Increased urinary frequency R35.0 [facility] [address] 79687 -[address]605 Sep, Acute suppurative otitis media of right ear without spontaneous rupture of tympanic membrane, recurrence not specified H66.001 and Acute non-recurrent maxillary sinusitis J01.00 [facility] [address] [address] -2130 Sep, Cough R05 [facility] [address] [id number] Aug, Encounter for immunization Z23 [place] [id number] [place] [address] 74859- 0679 Aug, [facility] [address] 30371 -8135 Aug, Kyphosis of cervical region, unspecified kyphosis type M40.202 [facility] [id number] [place] [address] [id number] Jul, Low back pain M54.5 and Depression, unspecified depression type F32.9 [facility] [address] [facility] [id number] [phone] Jun, Strep throat J02.[address] [id number] [id number] Jun, Dental examination Z01.20 [address] [place] [address] [id number] May, [address] [place] [address] [id number] Apr, [address] [place] [address] [id number] March, Depression, unspecified depression type F32.9 [address] [place] [address] [id number] Feb, Routine lab draw Z00.00 ; Obesity E66.9 and Swelling of ankle M25.473 [address] [place] [address] [id number] Jan, GE (gastroenteritis) K52.9 [address] [place] [address] [id number] Nov, Sinusitis J32.9 ; Allergic rhinitis J30.9 and Otitis externa, left H60.92 [address] [place] [address] [id number] Sep, Cough R05 IMMUNIZATIONS No Known Immunizations SOCIAL HISTORY Never Assessed REASON FOR VISIT Labs PLAN OF CARE VITAL SIGNS MEDICATIONS Unknown [...]
--- OUTSIDE RECORDS SUMMARY | 2018-05-31 09:47 | XMS REPORT ---
Author Author JASIEL JACOBS Organization [facility] Address [address] [place] [address] Care Team Providers Care Room Service Food Service Attendant Name Role Phone JASIEL JACOBS Unavailable PROBLEMS Type Condition ICD9-CM Code MAI21-YI Code Onset Dates Condition Status SNOMED Code Problem Depression, unspecified depression type F32.9 Active 90521587 Problem Dental caries K02.9 Active 42921984 Problem Pain of left heel M79.672 Active 0983925155282612 Problem Irritable bowel syndrome with diarrhea K58.0 Active 621545556 Problem Low back pain M54.5 Active 315697790 Problem Migraine without aura and with status migrainosus, not intractable G43.001 Active 13636085 Problem Primary insomnia F51.01 Active 1659352 ALLERGIES Substance Reaction Event Type Date Status Ciprofloxacin hives Drug Allergy Dec, Active SOCIAL HISTORY Never Assessed PLAN OF CARE Activity Details Follow Up 2 Weeks, prn Reason: VITAL SIGNS Height 69 in 2017-01-09 Weight 283.6 lbs 2017-01-09 Temperature 97.9 degrees Fahrenheit 2017-01-09 Heart Rate 92 bpm 2017-01-09 Respiratory Rate 22 2017-01-09 BMI 41.88 kg/m2 2017-01-09 Blood pressure systolic 103 mmHg 2017-01-09 Blood pressure diastolic 83 mmHg 2017-01-09 MEDICATIONS Medication Instructions Dosage Frequency Start Date End Date Duration Status Duloxetine HCl 30 MG TAKE ONE CAPSULE BY MOUTH TWICE DAILY 30 Active Azithromycin 250 MG Orally Once a day 2 tablets on the first day, then 1 tablet daily for 4 days 24h Dec, Jan, 5 day(s) Active Mucinex D 120-1200 MG Orally every 12 hrs 1 tablet as needed 12h Dec, Active Hydrocodone-Acetaminophen 7.5-325 MG Orally 3 times a day 1 tablet as needed 8h Dec, Active Ambien 10 mg Orally Once a day 1 tablet at bedtime as needed 24h Nov, Active Hqfatkdgrf-QLOH-Messfhca 50-325-40 MG Orally every 4 hrs 2 at onset then one every four max 6 daily 4h 25 Sep, 2016 Active Bentyl 10 mg Orally 4 times a day 1 tablet 6h Sep, Active Cymbalta 30 MG Orally Twice a day 1 capsule 12h March, Active RESULTS No Results PROCEDURES No Known [...]
--- OUTSIDE RECORDS SUMMARY | 2018-05-31 09:47 | XMS REPORT ---
Author XIANG Manuel [facility] e[employer] Address Unknown Phone Unavailable Care Team Providers Care Test Cell Technician Name Role Phone XIANG JERNIGAN CP Unavailable Allergies, Adverse Reactions, Alerts Substance Reaction Event Type Cipro hives Drug Allergy Problems Problem Type Condition Code Onset Dates Condition Status Problem Depression, unspecified depression type F32.9 Active Assessment Acute suppurative otitis media of right ear without spontaneous rupture of tympanic membrane, recurrence not specified H66.001 Active Problem Low back pain M54.5 Active Assessment Acute non-recurrent maxillary sinusitis J01.00 Active Medications Medication Code System Code Instructions Start Date End Date Status Dosage Tylenol PM Extra Strength [facility] [address]-09 500-25 MG Orally Once a day 1 tablet at bedtime as needed PredniSONE [facility] [address]-76 20 MG Orally Once a day Sep 17, 2016 Sep 22, 2016 2 tablet Cymbalta [facility] [address]-99 30 MG Orally Twice a day March 16, 2016 1 capsule Ibuprofen [facility] [address]-02 800 MG Orally Three times a day Aug 10, 2016 1 tablet Azithromycin [facility] [address]-16 250 MG Orally Once a day Sep 17, 2016 Sep 22, 2016 2 tablets on the first day, then 1 tablet daily for 4 days Procedures Procedure Coding System Code Date THER/PROPH/DIAG INJ, SC/IM CPT-4 11785 Sep 17, 2016 Office Visit, Est Pt., Level 3 CPT-4 07976 Sep 17, 2016 ROCEPHIN 1 GM (IM) CPT-4 J0696 Sep 17, 2016 Vital Signs Date/Time: Sep 17, 2016 Cardiac Monitoring Heart Rate 83 bpm Weight 281.4 lbs Height 69 in BMI 41.55 Index Blood Pressure Diastolic 82 mmHg Blood Pressure Systolic 128 mmHg Results No Known Results Summary Purpose eClinicalWorks Submission
--- OUTSIDE RECORDS SUMMARY | 2018-05-31 09:47 | XMS REPORT ---
Author Author WILBER BAL Organization [employer] Address Unknown Phone Unavailable Care Team Providers Care Insulation Sprayer Name Role Phone WILBER BAL CP Unavailable Allergies, Adverse Reactions, Alerts Substance Reaction Event Type Cipro hives Drug Allergy Problems Problem Type Condition Code Onset Dates Condition Status Assessment Strep throat J02.0 Active Problem Depression, unspecified depression type F32.9 Active Medications Medication Code System Code Instructions Start Date End Date Status Dosage Tylenol PM Extra Strength [facility] [address]-16 500-25 MG Orally Once a day 1 tablet at bedtime as needed Cymbalta [facility] [place] [address]-63 30 MG Orally Twice a day March 16, 2016 1 capsule Penicillin V Potassium [facility] [place] [place] [address]-64 500 MG Orally 2 times a day JunJul 16, 2016 1 tablet Procedures Procedure Coding System Code Date Office Visit, Est Pt., Level 3 CPT-4 01026 Jul 06, 2016 STREP A ASSAY W/OPTIC CPT-4 48543 Jul 06, 2016 Vital Signs Date/Time: Jul 06, 2016 Cardiac Monitoring Heart Rate 84 bpm Weight 273 lbs Height 69 in BMI 40.31 Index Blood Pressure Diastolic 78 mmHg Blood Pressure Systolic 108 mmHg Results No Known Results Summary Purpose [employer] Submission
--- OUTSIDE RECORDS SUMMARY | 2018-05-31 09:47 | XMS REPORT ---
Author Author JESUS LINO [facility] eClinical[employer] Address Unknown Phone Unavailable Care Team Providers Care Travel Specialist Name Role Phone JESUS LINO Unavailable Allergies, Adverse Reactions, Alerts Substance Reaction Event Type Cipro Info Not Available Drug Allergy Problems Problem Type Condition Code Onset Dates Condition Status Assessment Cough R05 Active Medications Medication Code System Code Instructions Start Date End Date Status Dosage Amoxicillin [facility] [address]-51 875 MG Orally Twice a day Sep 18, 2015 Sep 28, 2015 1 tablet Procedures Procedure Coding System Code Date Office Visit, Est Pt., Level 3 CPT-4 64270 Sep 18, 2015 Vital Signs Date/Time: Sep 18, 2015 Blood Pressure Systolic 122 mmHg Cardiac Monitoring Heart Rate 76 bpm Temperature 97.8 F Blood Pressure Diastolic 68 mmHg Results No Known Results Summary Purpose [employer]ClinicalWorks Submission
--- OUTSIDE RECORDS SUMMARY | 2018-05-31 09:47 | XMS REPORT ---
Author Author KRISTY Yee [facility] Address [address] [place] [address] Care Team Providers Care Outpatient Facility Physical Therapist Name Role Phone KRISTY Yee Unavailable PROBLEMS Type Condition ICD9-CM Code ELM90-LH Code Onset Dates Condition Status SNOMED Code Problem Irritable bowel syndrome with diarrhea K58.0 Active 893717674 Problem Migraine without aura and with status migrainosus, not intractable G43.001 Active 19877642 Problem Primary insomnia F51.01 Active 5564290 Problem Depression, unspecified depression type F32.9 Active 71668693 Problem Low back pain M54.5 Active 556869987 Problem Observed sleep apnea G47.30 Active 86606847 Problem Other chronic pain G89.29 Active 34232605 Problem Dental caries K02.9 Active 33184222 Problem Pain of left heel M79.672 Active 9491525162242467 Problem Mood disorder F39 Active 16871601 Problem Morbid obesity due to excess calories E66.01 Active 419189485 ALLERGIES Substance Reaction Event Type Date Status Ciprofloxacin hives Drug Allergy Aug, Active ENCOUNTERS Encounter Location Date Diagnosis [facility] [id number] [place] [address] [id number] March, [facility] [address] [id number] [place] [address] [id number] March, Dental examination Z01.20 [facility] [address] [address] Feb, [facility] [id number] [place] [address]- [address] Feb, Low back pain M54.5 [facility] [address] [place] [address] [id number] Feb, Dental examination Z01.20 [place] [id number] [place] [address]36- 1252 Feb, Primary insomnia F51.01 [place] [address] [address] Jan, BMI 40.0-44.9, adult Z68.41 and Observed sleep apnea G47.30 [place] [address] [address]- [address] Jan, Dental examination Z01.20 [place] [address] [address]- 1738 Jan, Dental examination Z01.20 [place] [address] [address]- [address] 12 Jan, 2018 Low back pain M54.5 [place] [address] [address]- [address] 09 Jan, 2018 Acute laryngopharyngitis J06.0 and BMI 40.0-44.9, adult Z68.41 [facility] [place] [address] [address] 08 Jan, 2018 Seasonal allergic rhinitis, unspecified trigger J30.2 and BMI 40.0-44.9, adult Z68.41 [facility] [place] [address] [address] Jan, Viral URI J06.9 ; Seasonal allergic rhinitis, unspecified trigger J30.2 and BMI 40.0-44.9, adult Z68.41 [place] [address] [address]- [address]64 Jan, [place] [address] [address]- [address]4 Jan, Primary insomnia F51.01 and Cough R05 [facility] [address] [address] Jan, Viral URI J06.9 [place] [address] [address]61- [address] Jan, Sacral pain M53.3 [facility] [address] [address] Jan, Nasal congestion R09.81 and BMI 40.0-44.9, adult Z68.41 [place] [address] [address]- [address] Dec, [place] [address] [address]- 1871 Dec, Low back pain M54.5 [place] [address] [address]- 4[address] Dec, Primary insomnia F51.01 [place] [address] 31414- 8656 Nov, [place] [address] 6[address]65- 9371 Nov, Migraine without aura and with status migrainosus, not intractable G43.001 ; Low back pain M54.5 and Primary insomnia F51.01 [place] [address] [address] Nov, Routine gynecological examination Z01.419 ; Routine screening for STI (sexually transmitted infection) Z11.3 and HPV in female B97.7 [place] [address] [address]- 1684 Oct, Low back pain M54.5 ; Other chronic pain G89.29 ; Pain in right hip M25.551 ; Pain in left hip M25.552 ; Pain in right knee M25.561 and Pain in left knee M25.562 [place] [address] [address] Oct, Primary insomnia F51.01 [place] [address] [place] [address] Oct, Low back pain M54.5 [place] [address] [address]761- 4695 Sep, Encounter for immunization Z23 [facility] [address] [address] Aug, Low back pain M54.5 and Primary insomnia F51.01 [place] [address] 12[address]- 8457 Aug, Low back pain M54.5 and Primary insomnia F51.01 [facility]note 2[facility] [address] [address] 05 Aug, 2017 Gastroenteritis and colitis, viral A08.4 [place] [address] [address]- 75[address] 04 Aug, 2017 [place] [address] [address] 5860 Aug, Hot flashes R23.2 ; Morbid obesity due to excess calories E66.01 and Mood disorder F39 [place] [address] [address]65- [address] 02 Aug, 2017 Hot flashes R23.2 ; Morbid obesity due to excess calories E66.01 and Mood disorder F39 [place] [address] [id number] [place] [address]72- 5088 07 Jul, 2017 Low back pain M54.5 [facility] [id number] [place] [address] 06 Jul, 2017 Lipoma of right lower extremity D17.23 and Acute left- sided thoracic back pain M54.6 [place] [address] [id number] [place] [address] 60054- 5728 Jun, Low back pain M54.5 [place] [address] 9[address]15- 7632 May, Low back pain M54.5 [place] [id number] [place] [address] 59980- 0975 Apr, Right upper quadrant pain R10.11 ; Depression, unspecified depression type F32.9 ; Low back pain M54.5 ; Primary insomnia F51.01 ; Irritable bowel syndrome with diarrhea K58.0 ; Migraine without aura and with status migrainosus, not intractable G43.001 and Breast cancer screening Z12.39 [place] [address] [address]- [address] Apr, [place] [address] 02563- 9686 Apr, Migraine without aura and with status migrainosus, not intractable G43.001 [place] [address] 8[address] 9183 March, [place] [address] 70551- 6638 Feb, [place] [address] 15051- [address] Feb, [facility] [address] [place] [address] Feb, Sore throat J02.9 and Acute upper respiratory infection, unspecified J06.9 [place] [id number] [place] [address]808- 1419 Feb, Dental examination Z01.20 and Supereruption K00.6 [facility] [address] [address] 06 Feb, 2017 Needlestick injury accident W27.3XXA and Employee exposure to blood Z57.[address] [address]- [address] 05 Feb, 2017 Dental examination Z01.20 [place] [address] 03286- 9721 Dec, Low back pain M54.5 [place] [address] [place] [address]18- [address]64 Dec, Acute upper respiratory infection, unspecified J06.9 and Other viral agents as the cause of diseases classified elsewhere B97.89 [facility] [address] [place] [address] [id number] Dec, 2016 Dental examination Z01.20 [facility] [address] [id number] [place] [address] 66003 -6042 16 Dec, 2016 Gastroenteritis K52.9 [place] [address] 37121- 8214 10 Dec, 2016 Plantar fasciitis of left foot M72.2 [place] [address] [address] [id number] [place] [address] 31909- 8238 Dec, Low back pain M54.5 [place] [address] [place] [address] [id number] [place] [address] 30977- 4429 Nov, Depression, unspecified depression type F32.9 ; Low back pain M54.5 ; Primary insomnia F51.01 ; Irritable bowel syndrome with diarrhea K58.0 ; Pain of left heel M79.672 and Migraine without aura and with status migrainosus, not intractable G43.001 [place] [address] [place] [address] 27616- 9364 Nov, Acute pain of right knee M25.561 and Primary insomnia F51.01 [place] [address] [address] [id number] [place] [address] 15107- 3547 Oct, [place] [address] [address] [id number] [place] [address] 54714- 9378 Oct, Urinary pain R30.9 [facility] [id number] [place] [address]20 -3522 Oct, Acute recurrent maxillary sinusitis J01.01 [place] [id number] [place] [address] 91788- 7873 Sep, Acute pain of right knee M25.561 [place] [address] 83938- 8856 Sep, [place] [address] 61118- 1596 Sep, Arthralgia, unspecified joint M25.50 [place] [address] 71756- 0668 Sep, Hives L50.9 and Arthralgia, unspecified joint M25.50 [place] [address] 29194- 1597 Sep, [place] [address] 06372- 7467 Sep, Depression, unspecified depression type F32.9 ; Primary insomnia F51.01 ; Irritable bowel syndrome with diarrhea K58.0 ; Encounter to establish care Z76.89 and Increased urinary frequency R35.0 [facility]note 2[facility] [address] [address] Sep, Acute suppurative otitis media of right ear without spontaneous rupture of tympanic membrane, recurrence not specified H66.001 and Acute non-recurrent maxillary sinusitis J01.00 [facility] [id number] [place] [address] 58271 -7311 Sep, Cough R05 [facility] [id number] [place] [address] [id number] Aug, Encounter for immunization Z23 [place] [address] 84750- 6441 Aug, [facility] [id number] [place] [address] 56259 -8017 Aug, Kyphosis of cervical region, unspecified kyphosis type M40.202 [facility] [id number] [place] [address] [id number] Jul, Low back pain M54.5 and Depression, unspecified depression type F32.9 [facility] [address] [id number] [id number] Jun, Strep throat J02.0 [facility] [address] [id number] [id number] Jun, Dental examination Z01.20 [facility] [id number] [place] [address] [id number] May, [address] [place] [address] [id number] Apr, [place] [id number] [place] [address] [id number] March, Depression, unspecified depression type F32.9 [address] [id number] Feb, Routine lab draw Z00.00 ; Obesity E66.9 and Swelling of ankle M25.473 [address] [place] [address] [id number] Jan, GE (gastroenteritis) K52.9 [place] [id number] [place] [address] [id number] Nov, Sinusitis J32.9 ; Allergic rhinitis J30.9 and Otitis externa, left H60.92 [address] [place] [address] [id number] Sep, Cough R05 IMMUNIZATIONS No Known Immunizations SOCIAL HISTORY Never Assessed REASON FOR VISIT N/D no vomiting. started having diarrhea on monday. [email or web address] PLAN OF CARE Activity Details Follow Up prn Reason: VITAL SIGNS Height 69 in 2017-08-17 Weight 271.2 lbs 2017-08-17 Temperature 97.6 degrees Fahrenheit 2017-08-17 Heart Rate 100 bpm 2017-08-17 Respiratory Rate 20 2017-08-17 BMI 40.04 kg/m2 2017-08-17 Blood pressure systolic 126 mmHg 2017-08-17 Blood pressure diastolic 78 mmHg 2017-08-17 MEDICATIONS Medication Instructions Dosage Frequency Start Date End Date Duration Status Cymbalta 30 MG Orally Once a day 1 capsule 24h March, Active Cymbalta 60 mg Orally Once a day 1 capsule 24h Aug, 30 day(s) Active Protonix 40 mg Orally Once a day 1 tablet 24h Aug, 30 day(s) Active Bentyl 10 mg Orally 4 times a day 1 tablet 6h 15 Sep, 2016 Active Clnlqdajwf-YOHT-Uorilqai 50-325-40 MG Orally every 4 hrs 2 at onset then one every four max 6 daily 4h Sep, Active Ambien 10 mg Orally Once a day 1 tablet at bedtime as needed 24h Nov, Active Hydrocodone-Acetaminophen 7.5-325 MG Orally 3 times a day 1 tablet as needed 8h Jul, 28 days Active RESULTS No Results PROCEDURES [...]
--- OUTSIDE RECORDS SUMMARY | 2018-05-31 09:48 | XMS REPORT ---
Author Author KRISTY DANIELLE [facility] Address [address] [place] [address] Care Team Providers Care Cooler Operator Name Role Phone KRISTY DANIELLE Unavailable PROBLEMS Type Condition ICD9-CM Code NNR52-FA Code Onset Dates Condition Status SNOMED Code Problem Depression, unspecified depression type F32.9 Active 41844380 Problem Dental caries K02.9 Active 31248703 Problem Pain of left heel M79.672 Active 1724223329311096 Problem Irritable bowel syndrome with diarrhea K58.0 Active 331662489 Problem Low back pain M54.5 Active 687367972 Problem Migraine without aura and with status migrainosus, not intractable G43.001 Active 34826421 Problem Primary insomnia F51.01 Active 4130098 ALLERGIES Substance Reaction Event Type Date Status Ciprofloxacin hives Drug Allergy Dec, Active SOCIAL HISTORY Never Assessed PLAN OF CARE Activity Details Follow Up prn Reason: VITAL SIGNS Height 69 in 2016-12-29 Weight 276.6 lbs 2016-12-29 Temperature 97.7 degrees Fahrenheit 2016-12-29 Heart Rate 92 bpm 2016-12-29 Respiratory Rate 18 2016-12-29 BMI 40.84 kg/m2 2016-12-29 Blood pressure systolic 114 mmHg 2016-12-29 Blood pressure diastolic 82 mmHg 2016-12-29 MEDICATIONS Medication Instructions Dosage Frequency Start Date End Date Duration Status Hqietznxqi-HOTX-Ldczzmbe 50-325-40 MG Orally every 4 hrs 2 at onset then one every four max 6 daily 4h 25 Sep, 2016 Active Bentyl 10 mg Orally 4 times a day 1 tablet 6h Sep, Active Duloxetine HCl 30 MG TAKE ONE CAPSULE BY MOUTH TWICE DAILY 30 Active Hydrocodone-Acetaminophen 7.5-325 MG Orally 3 times a day 1 tablet as needed 8h Dec, Active Ambien 10 mg Orally Once a day 1 tablet at bedtime as needed 24h Nov, Active Cymbalta 30 MG Orally Twice a [...]
--- OUTSIDE RECORDS SUMMARY | 2018-05-31 09:48 | XMS REPORT ---
Author Author JASIEL Boateng Organization [facility] Address [address] [place] [address] Care Team Providers Care Medical Safety Director Name Role Phone JASIEL Boateng Unavailable PROBLEMS Type Condition ICD9-CM Code YPR50-NZ Code Onset Dates Condition Status SNOMED Code Problem Irritable bowel syndrome with diarrhea K58.0 Active 647167435 Problem Migraine without aura and with status migrainosus, not intractable G43.001 Active 06617130 Problem Primary insomnia F51.01 Active 7789806 Problem Depression, unspecified depression type F32.9 Active 47495287 Problem Low back pain M54.5 Active 400345156 Problem Observed sleep apnea G47.30 Active 93213943 Problem Other chronic pain G89.29 Active 78888224 Problem Dental caries K02.9 Active 21522137 Problem Pain of left heel M79.672 Active 3042545615245859 Problem Mood disorder F39 Active 26145033 Problem Morbid obesity due to excess calories E66.01 Active 286451007 ALLERGIES No Information ENCOUNTERS Encounter Location Date Diagnosis [facility] [id number] [place] [address] [phone] March, [facility] [id number] [place] [address] [id number] March, [facility] [id number] [place] [address] [phone] Feb, Dental examination Z01.20 [facility] [address] [address]- [address]90 Feb, Primary insomnia F51.01 [facility] [id number] [place] [address] 91375- 2262 Jan, BMI 40.0-44.9, adult Z68.41 and Observed sleep apnea G47.30 [place] [id number] [place] [address] 31190- 7206 22 Jan, 2018 Dental examination Z01.20 [place] [address] 18675- 4931 20 Jan, 2018 Dental examination Z01.20 [place] [address] 93234- 3085 12 Jan, 2018 Low back pain M54.5 [place] [address] 80543- 1064 09 Jan, 2018 Acute laryngopharyngitis J06.0 and BMI 40.0-44.9, adult Z68.41 [facility] [place] [address] [address] 08 Jan, 2018 Seasonal allergic rhinitis, unspecified trigger J30.2 and BMI 40.0-44.9, adult Z68.41 [facility] [place] [address] [address]69 [address]3647 07 Jan, 2018 Viral URI J06.9 ; Seasonal allergic rhinitis, unspecified trigger J30.2 and BMI 40.0-44.9, adult Z68.41 [place] [address] 26523- 1419 Jan, [place] [address] 49054- 5982 Jan, Primary insomnia F51.01 and Cough R05 [facility] [address] [address] Jan, Viral URI J06.9 [place] [address] 77046- 2573 Jan, Sacral pain M53.3 [facility] [place] [address] 80[address]6244 Jan, Nasal congestion R09.81 and BMI 40.0-44.9, adult Z68.41 [place] [id number] [place] [address] 65235- 7944 Dec, [place] [address] [id number] [place] [address] 62177- 2788 Dec, Low back pain M54.5 [place] [id number] [place] [address] 77791- 8176 Dec, Primary insomnia F51.01 [place] [id number] [place] [address] 84352- 2780 Nov, [place] [address] 16768- 9151 Nov, Migraine without aura and with status migrainosus, not intractable G43.001 ; Low back pain M54.5 and Primary insomnia F51.01 [place] [address] 38011- 2751 Nov, Routine gynecological examination Z01.419 ; Routine screening for STI (sexually transmitted infection) Z11.3 and HPV in female B97.7 [place] [id number] [place] [address] 45174- 1969 Oct, Low back pain M54.5 ; Other chronic pain G89.29 ; Pain in right hip M25.551 ; Pain in left hip M25.552 ; Pain in right knee M25.561 and Pain in left knee M25.562 [place] [id number] [place] [address] 16591- 3622 Oct, Primary insomnia F51.01 [place] [id number] [place] [address] 46791- 7495 Oct, Low back pain M54.5 [place] [id number] [place] [address] 14288- 5335 Sep, Encounter for immunization Z23 [place] [id number] [place] [address] 42282- 8670 Aug, Low back pain M54.5 and Primary insomnia F51.01 [facility] [id number] [place] [address] 72276- 5941 Aug, Low back pain M54.5 and Primary insomnia F51.01 [facility] [id number] [place] [address] 86427 -8603 05 Aug, 2017 Gastroenteritis and colitis, viral A08.4 [place] [id number] [place] [address] 23071- 7693 Aug, [facility] [id number] [place] [address] 59697- 9578 Aug, Hot flashes R23.2 ; Morbid obesity due to excess calories E66.01 and Mood disorder F39 [place] [id number] [place] [address] 44537- 7516 02 Aug, 2017 Hot flashes R23.2 ; Morbid obesity due to excess calories E66.01 and Mood disorder F39 [facility] [address] [place] [address] 58347- 9255 07 Jul, 2017 Low back pain M54.5 [facility] [id number] [place] [address] 94063 -3688 06 Jul, 2017 Lipoma of right lower extremity D17.23 and Acute left- sided thoracic back pain M54.6 [place] [address] [id number] [place] [address] 47611- 5284 Jun, Low back pain M54.5 [place] [address] [id number] [place] [address] 31480- 5362 May, Low back pain M54.5 [place] [address] [id number] [place] [address] 08767- 0100 Apr, Right upper quadrant pain R10.11 ; Depression, unspecified depression type F32.9 ; Low back pain M54.5 ; Primary insomnia F51.01 ; Irritable bowel syndrome with diarrhea K58.0 ; Migraine without aura and with status migrainosus, not intractable G43.001 and Breast cancer screening Z12.39 [facility] [id number] [place] [address] 93869- 0555 Apr, [facility] [id number] [place] [address] 81843- 0758 16 Apr, 2017 Migraine without aura and with status migrainosus, not intractable G43.001 [place] [address] 64417- 9736 March, [facility] [address] 39083- 2378 Feb, [place] [address] 70157- 4971 Feb, [facility] [address] [address] -9052 Feb, Sore throat J02.9 and Acute upper respiratory infection, unspecified J06.9 [facility] [id number] [place] [address] 25332- 8073 Feb, Dental examination Z01.20 and Supereruption K00.6 [facility] [id number] [place] [address] 55933 -9211 Feb, Needlestick injury accident W27.3XXA and Employee exposure to blood Z57.8 [place] [id number] [place] [address] 72437- 9217 Feb, Dental examination Z01.20 [facility] [id number] [place] [address] 63166- 0474 Dec, Low back pain M54.5 [place] [address] [id number] [place] [address] 83188- 0933 27 Dec, 2016 Acute upper respiratory infection, unspecified J06.9 and Other viral agents as the cause of diseases classified elsewhere B97.89 [facility] [address] [place] [phone] Dec, 2016 Dental examination Z01.20 [facility] [address] 43[address]1013 16 Dec, 2016 Gastroenteritis K52.9 [place] [id number] [place] [address] 02749- 5082 10 Dec, 2016 Plantar fasciitis of left foot M72.2 [place] [address] 43538- 0636 Dec, Low back pain M54.5 [place] [address] 90860- 9447 Nov, Depression, unspecified depression type F32.9 ; Low back pain M54.5 ; Primary insomnia F51.01 ; Irritable bowel syndrome with diarrhea K58.0 ; Pain of left heel M79.672 and Migraine without aura and with status migrainosus, not intractable G43.001 [place] [id number] [place] [address] 11053- 9721 Nov, Acute pain of right knee M25.561 and Primary insomnia F51.01 [place] [id number] [place] [address] 19181- 9253 Oct, [place] [id number] [place] [address] 70103- 8736 Oct, Urinary pain R30.9 [facility] [id number] [place] [address] 11910 -9222 Oct, Acute recurrent maxillary sinusitis J01.01 [place] [address] 02283- 7064 Sep, Acute pain of right knee M25.561 [place] [id number] [place] [address] 20739- 8047 Sep, [place] [address] 72251- 7804 Sep, Arthralgia, unspecified joint M25.50 [place] [address] [id number] [place] [address] 29818- 5445 Sep, Hives L50.9 and Arthralgia, unspecified joint M25.50 [place] [address] [id number] [place] [address] 28667- 3958 16 Sep, 2016 [place] [address] 19192- 8577 Sep, Depression, unspecified depression type F32.9 ; Primary insomnia F51.01 ; Irritable bowel syndrome with diarrhea K58.0 ; Encounter to establish care Z76.89 and Increased urinary frequency R35.0 [facility] [address] [place] [id number] [place] [address] 67945 -1744 Sep, Acute suppurative otitis media of right ear without spontaneous rupture of tympanic membrane, recurrence not specified H66.001 and Acute non-recurrent maxillary sinusitis J01.00 [facility] [address] [place] [id number] [place] [address] 80602 -5576 Sep, Cough R05 [facility] [id number] [place] [address] [phone] Aug, Encounter for immunization Z23 [place] [id number] [place] [address] 41499- 9812 Aug, [facility] [address] [place] [id number] [place] [address] 64335 -4298 Aug, Kyphosis of cervical region, unspecified kyphosis type M40.202 [facility] [id number] [place] [address] [id number] Jul, Low back pain M54.5 and Depression, unspecified depression type F32.[address] [facility] [address] [id number] [phone] Jun, Strep throat J02.[address] [facility] [id number] [place] [address] [id number] Jun, Dental examination Z01.20 [address] [id number] May, [place] [id number] [place] [address] [phone] Apr, [address] [place] [address] [id number] March, Depression, unspecified depression type F32.9 [place] [id number] [place] [address] [phone] Feb, Routine lab draw Z00.00 ; Obesity E66.9 and Swelling of ankle M25.473 [place] [id number] [place] [address] [id number] Jan, GE (gastroenteritis) K52.9 [place] [id number] [place] [address] [id number] Nov, Sinusitis J32.9 ; Allergic rhinitis J30.9 and Otitis externa, left H60.92 [address] [place] [address] [id number] Sep, Cough R05 IMMUNIZATIONS No Known Immunizations SOCIAL HISTORY Never Assessed REASON FOR VISIT Controlled Refill Request PLAN OF CARE VITAL SIGNS MEDICATIONS Medication Instructions Dosage Frequency Start Date End Date Duration Status Hydrocodone-Acetaminophen 7.5-325 MG Orally 3 times a day 1 tablet as needed 8h May, Active RESULTS No Results PROCEDURES No Known [...]
--- OUTSIDE RECORDS SUMMARY | 2018-05-31 09:48 | XMS REPORT ---
Author Author CAITLYN MEJIAS Organization [facility] Address [address] [place] [address] Care Team Providers Care Manager Channel Name Role Phone CAITLYN MEJIAS Unavailable PROBLEMS Type Condition ICD9-CM Code CZN87-NA Code Onset Dates Condition Status SNOMED Code Problem Irritable bowel syndrome with diarrhea K58.0 Active 489979459 Problem Migraine without aura and with status migrainosus, not intractable G43.001 Active 87594171 Problem Primary insomnia F51.01 Active 7779795 Problem Depression, unspecified depression type F32.9 Active 42514624 Problem Low back pain M54.5 Active 980903122 Problem Observed sleep apnea G47.30 Active 28856205 Problem Other chronic pain G89.29 Active 56932115 Problem Dental caries K02.9 Active 00794837 Problem Pain of left heel M79.672 Active 6052361335666192 Problem Mood disorder F39 Active 76368439 Problem Morbid obesity due to excess calories E66.01 Active 386261589 ALLERGIES No Information ENCOUNTERS Encounter Location Date Diagnosis [facility] [address] [address] 22 Apr, 2018 Vaginal candidiasis B37.3 [facility] [id number] [place] [address] 74170 [address]2062 Apr, Vaginal candidiasis B37.3 [facility] [address] [place] [address]208 [address]7330 11 Apr, 2018 Acute non-recurrent maxillary sinusitis J01.00 [facility] [id number] [place] [address] 36908- 9569 Apr, [facility] [id number] [place] [address] 91507- 6451 06 Apr, 2018 Primary insomnia F51.01 [facility] [id number] [place] [address] 88362 -0423 Apr, Sore throat J02.9 ; Seasonal allergic rhinitis, unspecified trigger J30.2 and BMI 40.0-44.9, adult Z68.41 [facility] [id number] [place] [address] 82944- 1071 Apr, Low back pain M54.5 [facility] [address] [address]- [address] Apr, Pain, dental K08.89 [facility] [address] [id number] March, Dental caries K02.9 [facility] [address] 61553- [address] March, [facility] [id number] [place] [address] 88578- 5439 March, [facility] [id number] [place] [address] 43709- 1084 March, [facility] [id number] [place] [address] 47671- 2261 March, Low back pain M54.5 and Primary insomnia F51.01 [facility] [id number] [place] [address] [id number] March, Dental examination Z01.20 [facility] [id number] [place] [address] 26411- 2627 Feb, [facility] [id number] [place] [address] 36133- 0783 Feb, Low back pain M54.5 [facility] [id number] [place] [address] [id number] Feb, Dental examination Z01.20 [facility] [id number] [place] [address] 97492- 2615 Feb, Primary insomnia F51.01 [facility] [address] 23131- 6199 28 Jan, 2018 BMI 40.0-44.9, adult Z68.41 and Observed sleep apnea G47.30 [place] [address] 26631- 5174 22 Jan, 2018 Dental examination Z01.20 [place] [address] 83856- 9577 20 Jan, 2018 Dental examination Z01.20 [place] [address] 98506- 7057 12 Jan, 2018 Low back pain M54.5 [place] [address] 88285- 3160 09 Jan, 2018 Acute laryngopharyngitis J06.0 and BMI 40.0-44.9, adult Z68.41 [facility] [address] 70788 [address] 08 Jan, 2018 Seasonal allergic rhinitis, unspecified trigger J30.2 and BMI 40.0-44.9, adult Z68.41 [facility] [address] 25774 -6099 07 Jan, 2018 Viral URI J06.9 ; Seasonal allergic rhinitis, unspecified trigger J30.2 and BMI 40.0-44.9, adult Z68.41 [place] [address] 23871- 5240 Jan, [place] [address] 11461- 6954 Jan, Primary insomnia F51.01 and Cough R05 [facility] [address] 94147 -9755 Jan, Viral URI J06.9 [place] [address] 21648- 1162 Jan, Sacral pain M53.3 [facility] [address] [place] [address] 27649 -5223 Jan, Nasal congestion R09.81 and BMI 40.0-44.9, adult Z68.41 [facility] [id number] [place] [address] 07259- 2766 Dec, [facility] [address] 92263- 1446 Dec, Low back pain M54.5 [place] [id number] [place] [address] 57676- 0595 Dec, Primary insomnia F51.01 [place] [id number] [place] [address] 18221- 5045 Nov, [place] [address] 99536- 8370 Nov, Migraine without aura and with status migrainosus, not intractable G43.001 ; Low back pain M54.5 and Primary insomnia F51.01 [place] [id number] [place] [address] 11507- 3844 Nov, Routine gynecological examination Z01.419 ; Routine screening for STI (sexually transmitted infection) Z11.3 and HPV in female B97.7 [facility] [facility] [id number] [place] [address] 45668- 3030 Oct, Low back pain M54.5 ; Other chronic pain G89.29 ; Pain in right hip M25.551 ; Pain in left hip M25.552 ; Pain in right knee M25.561 and Pain in left knee M25.562 [place] [facility] [id number] [place] [address] 54281- 3278 Oct, Primary insomnia F51.01 [place] [id number] [place] [address] 54114- 9913 Oct, Low back pain M54.5 [place] [address] 45171- 3877 Sep, Encounter for immunization Z23 [facility] [id number] [place] [address] 45893- 2210 19 Aug, 2017 Low back pain M54.5 and Primary insomnia F51.01 [facility] [id number] [place] [address] 33482- 0723 10 Aug, 2017 Low back pain M54.5 and Primary insomnia F51.01 [facility] [id number] [place] [address] 04487 -3127 05 Aug, 2017 Gastroenteritis and colitis, viral A08.4 [place] [address] 00046- 4543 04 Aug, 2017 [place] [id number] [place] [address] 42892- 0121 03 Aug, 2017 Hot flashes R23.2 ; Morbid obesity due to excess calories E66.01 and Mood disorder F39 [facility] [id number] [place] [address] 51594- 8887 02 Aug, 2017 Hot flashes R23.2 ; Morbid obesity due to excess calories E66.01 and Mood disorder F39 [facility] [id number] [place] [address] 45482- 9273 07 Jul, 2017 Low back pain M54.5 [facility] [id number] [place] [address] 04886 -7605 06 Jul, 2017 Lipoma of right lower extremity D17.23 and Acute left- sided thoracic back pain M54.6 [facility] [address] [place] [address] 10565- 8952 Jun, Low back pain M54.5 [facility] [id number] [place] [address] 17842- 8529 May, Low back pain M54.5 [place] [facility] [id number] [place] [address] 15306- 7863 Apr, Right upper quadrant pain R10.11 ; Depression, unspecified depression type F32.9 ; Low back pain M54.5 ; Primary insomnia F51.01 ; Irritable bowel syndrome with diarrhea K58.0 ; Migraine without aura and with status migrainosus, not intractable G43.001 and Breast cancer screening Z12.39 [place] [id number] [place] [address] 89826- 6771 Apr, [place] [address] 44778- 1375 Apr, Migraine without aura and with status migrainosus, not intractable G43.001 [place] [address] 76925- 0533 March, [place] [address] 22803- 0090 Feb, [place] [address] 13148- 5236 Feb, [facility] [id number] [place] [address] 77884 -2490 Feb, Sore throat J02.9 and Acute upper respiratory infection, unspecified J06.9 [place] [address] [place] [address] 41157- 1094 Feb, Dental examination Z01.20 and Supereruption K00.6 [facility] [id number] [place] [address] 01968 -5340 Feb, Needlestick injury accident W27.3XXA and Employee exposure to blood Z57.8 [place] [address] 72891- 7553 Feb, Dental examination Z01.20 [place] [id number] [place] [address] 42235- 6444 Dec, Low back pain M54.5 [place] [address] 68652- 4291 Dec, Acute upper respiratory infection, unspecified J06.9 and Other viral agents as the cause of diseases classified elsewhere B97.89 [facility] [address] [place] [address] [id number] Dec, 2016 Dental examination Z01.20 [facility] [address] [place] [address] 09800 -5103 16 Dec, 2016 Gastroenteritis K52.9 [place] [id number] [place] [address] 56656- 2201 10 Dec, 2016 Plantar fasciitis of left foot M72.2 [place] [address] [place] [address] 57157- 9735 Dec, Low back pain M54.5 [place] [address] [place] [address] 24080- 9178 Nov, Depression, unspecified depression type F32.9 ; Low back pain M54.5 ; Primary insomnia F51.01 ; Irritable bowel syndrome with diarrhea K58.0 ; Pain of left heel M79.672 and Migraine without aura and with status migrainosus, not intractable G43.001 [place] [address] [place] [address] 43133- 5973 Nov, Acute pain of right knee M25.561 and Primary insomnia F51.01 [place] [address] [place] [address] 61783- 7420 Oct, [place] [id number] [place] [address] 14235- 4386 Oct, Urinary pain R30.9 [facility] [place] [id number] [place] [address] 38343 -6203 Oct, Acute recurrent maxillary sinusitis J01.01 [place] [address] [place] [address] 57307- 1119 Sep, Acute pain of right knee M25.561 [place] [id number] [place] [address] 00078- 3253 Sep, [place] [address] 42130- 8516 Sep, Arthralgia, unspecified joint M25.50 [place] [address] 49576- 5378 Sep, Hives L50.9 and Arthralgia, unspecified joint M25.50 [place] [address] 87133- 8618 Sep, [address] 45400- 0948 Sep, Depression, unspecified depression type F32.9 ; Primary insomnia F51.01 ; Irritable bowel syndrome with diarrhea K58.0 ; Encounter to establish care Z76.89 and Increased urinary frequency R35.0 [facility] [address] [place] [address] 45884 -0936 Sep, Acute suppurative otitis media of right ear without spontaneous rupture of tympanic membrane, recurrence not specified H66.001 and Acute non-recurrent maxillary sinusitis J01.00 [facility] [address] [place] [id number] [place] [address] 15178 -1829 Sep, Cough R05 [facility] [id number] [place] [address] [id number] Aug, Encounter for immunization Z23 [address] [id number] [place] [address] 59462- 4857 Aug, [facility] [address] [place] [address] 37677 -8725 Aug, Kyphosis of cervical region, unspecified kyphosis type M40.202 [facility] [id number] [place] [address] [phone] Jul, Low back pain M54.5 and Depression, unspecified depression type F32.[address] [facility] [address] [id number] [phone] Jun, Strep throat J02.0 [facility] [address] [facility] [address] [address] [id number] [phone] Jun, Dental examination Z01.20 [address] [place] [address] [id number] May, [address] [place] [phone] Apr, [address] [place] [address] [phone] March, Depression, unspecified depression type F32.9 [place] [address] [place] [address] [id number] Feb, Routine lab draw Z00.00 ; Obesity E66.9 and Swelling of ankle M25.473 [place] [address] [place] [address] [id number] Jan, GE (gastroenteritis) K52.9 [place] [address] [place] [address] [id number] Nov, Sinusitis J32.9 ; Allergic rhinitis J30.9 and Otitis externa, left H60.92 [place] [address] [place] [address] [id number] Sep, Cough R05 IMMUNIZATIONS No Known Immunizations SOCIAL HISTORY Never Assessed REASON FOR VISIT med refills PLAN OF CARE VITAL SIGNS MEDICATIONS Unknown [...]
--- OUTSIDE RECORDS SUMMARY | 2018-05-31 09:48 | XMS REPORT ---
Author Author JANE FATIMA Organization [facility] Address [address] [place] [address] Care Team Providers Care Pattern And Chain Maker Name Role Phone JANE FATIMA Unavailable PROBLEMS Type Condition ICD9-CM Code UED23-GW Code Onset Dates Condition Status SNOMED Code Problem Depression, unspecified depression type F32.9 Active 16468957 Problem Dental caries K02.9 Active 19566778 Problem Pain of left heel M79.672 Active 5204338093421665 Problem Irritable bowel syndrome with diarrhea K58.0 Active 929204497 Problem Low back pain M54.5 Active 992792096 Problem Migraine without aura and with status migrainosus, not intractable G43.001 Active 07922863 Problem Primary insomnia F51.01 Active 9859815 ALLERGIES No Information SOCIAL HISTORY Never Assessed PLAN OF CARE Activity Details Follow Up 4 Weeks Reason: VITAL SIGNS Height 69 in 2016-12-23 Blood pressure systolic 118 mmHg 2016-12-23 Blood pressure diastolic 80 mmHg 2016-12-23 MEDICATIONS Unknown Medications RESULTS No Results PROCEDURES Procedure Date Ordered Result Body Site FT ARCH SUPP PREMOLD LNGTUDNL/MT EA Dec 23, 2016 IMMUNIZATIONS No Known Immunizations MEDICAL (GENERAL) HISTORY [...]
--- OUTSIDE RECORDS SUMMARY | 2018-05-31 09:48 | XMS REPORT ---
Author Author CAITLYN MEJIAS Organization [facility] Address [address] [place] [address] Care Team Providers Care Manager Concrete Name Role Phone CAITLYN MEJIAS Unavailable PROBLEMS Type Condition ICD9-CM Code [id number] Code Onset Dates Condition Status SNOMED Code Assessment Acute recurrent maxillary sinusitis J01.01 Oct, Active 93214580 Problem Primary insomnia F51.01 Active 7519093 Problem Irritable bowel syndrome with diarrhea K58.0 Active 650434571 Problem Low back pain M54.5 Active 194501569 Problem Depression, unspecified depression type F32.9 Active 80769647 Problem Encounter to establish care Z76.89 Active 642666145 Problem Increased urinary frequency R35.0 Active 187594791 ALLERGIES Substance Reaction Event Type Date Status Ciprofloxacin hives Drug Allergy Oct, Active SOCIAL HISTORY No smoking Hx information available PLAN OF CARE VITAL SIGNS Height 69 in 2016-10-22 Weight 284.0 lbs 2016-10-22 Heart Rate 88 bpm 2016-10-22 Respiratory Rate 20 2016-10-22 BMI 41.93 kg/m2 2016-10-22 Blood pressure systolic 128 mmHg 2016-10-22 Blood pressure diastolic 70 mmHg 2016-10-22 MEDICATIONS Medication Instructions Dosage Frequency Start Date End Date Duration Status Augmentin 875-125 MG Orally every 12 hrs 1 tablet 12h Oct,Oct 10 day(s) Active Hydrocodone-Acetaminophen 7.5-325 MG Orally 3 times a day 1 tablet as needed 8h Sep, Active PredniSONE 20 mg Orally Once a day 2 tablets 24h Oct, Oct, 05 days Active Cymbalta 30 MG Orally Twice a day 1 capsule 12h March, Active Ambien 10 mg Orally Once a day 1 tablet at bedtime as needed 24h Sep, Active Bentyl 10 mg Orally 4 times a day 1 tablet 6h Sep, Active Contrave 8-90 MG Orally Twice a day one tablet daily x 10 days then one bid x 10 days then two in the am and one in the pm for 10 days then two tablets 12h Sep, Oct, 30 day(s) Active Hrvgbndfao-ZNWB-Nlazktpn 50-325-40 MG Orally every 4 hrs 2 at onset then one every four max 6 daily 4h Sep, Active RESULTS No Results PROCEDURES Procedure Date Ordered Related Diagnosis Body Site Office Visit, Est Pt., Level 3 Oct 22, 2016 IMMUNIZATIONS No Known Immunizations
--- OUTSIDE RECORDS SUMMARY | 2018-05-31 09:48 | XMS REPORT ---
Author Author JASIEL JACOBS Organization [employer] Address Unknown Phone Unavailable Care Team Providers Care Brands Editor Name Role Phone JASIEL JACOBS CP Unavailable Allergies No Known Allergies Problems Problem Type Condition Code Onset Dates Condition Status Problem Irritable bowel syndrome with diarrhea K58.0 Active Problem Encounter to establish care Z76.89 Active Problem Primary insomnia F51.01 Active Problem Depression, unspecified depression type F32.9 Active Problem Increased urinary frequency R35.0 Active Problem Low back pain M54.5 Active Medications Medication Code System Code Instructions Start Date End Date Status Dosage Fpbmgyichs-JWQV-Blhgilkv [facility] [id number] 50-325-40 MG Orally every 4 hrs Oct 07, 2016 2 at onset then one every four max 6 daily Results No Known Results Summary Purpose [employer] Submission
--- OUTSIDE RECORDS SUMMARY | 2018-05-31 09:49 | XMS REPORT ---
Author Author CAITLYN MEJIAS Organization [facility] Address [address] [place] [address] Care Team Providers Care Benefits Processor Name Role Phone CAITLYN MEJIAS Unavailable PROBLEMS Type Condition ICD9-CM Code VES11-WU Code Onset Dates Condition Status SNOMED Code Problem Irritable bowel syndrome with diarrhea K58.0 Active 669451481 Problem Migraine without aura and with status migrainosus, not intractable G43.001 Active 93831207 Problem Primary insomnia F51.01 Active 8002479 Problem Depression, unspecified depression type F32.9 Active 55927591 Problem Low back pain M54.5 Active 618866827 Problem Observed sleep apnea G47.30 Active 14969512 Problem Other chronic pain G89.29 Active 93047563 Problem Dental caries K02.9 Active 42893765 Problem Pain of left heel M79.672 Active [id number] Problem Mood disorder F39 Active 29763536 Problem Morbid obesity due to excess calories E66.01 Active 879929754 ALLERGIES No Information ENCOUNTERS Encounter Location Date Diagnosis [facility] [id number] [place] [address] Apr, Sore throat J02.9 ; Seasonal allergic rhinitis, unspecified trigger J30.2 and BMI 40.0-44.9, adult Z68.41 [facility] [address] [address] Apr, Low back pain M54.5 [facility] [address] [address] Apr, Pain, dental K08.89 [facility] [id number] [place] [address] [phone] March, Dental caries K02.9 [facility] [id number] [place] [address]83- 1049 March, [facility] [address] [address] March, [facility] [id number] [place] [address] 96648- 1785 March, [facility] [id number] [place] [address] 58104- 0992 March, Low back pain M54.5 and Primary insomnia F51.01 [facility] [address] [place] [address] [phone] March, Dental examination Z01.20 [facility] [id number] [place] [address] 34384- 2032 Feb, [facility] [id number] [place] [address] 28683- 9287 Feb, Low back pain M54.5 [facility] [id number] [place] [address] [phone] Feb, Dental examination Z01.20 [facility] [id number] [place] [address] 39956- 8388 Feb, Primary insomnia F51.01 [facility] [id number] [place] [address] 24187- 4211 Jan, BMI 40.0-44.9, adult Z68.41 and Observed sleep apnea G47.30 [facility] [address] [address] Jan, Dental examination Z01.20 [facility] [address] [place] [address] 77471- 3866 Jan, Dental examination Z01.20 [facility] [address], [place] [address] Jan, Low back pain M54.5 [facility] [id number] [place] [address] 21657- 9002 Jan, Acute laryngopharyngitis J06.0 and BMI 40.0-44.9, adult Z68.41 [facility] [address] [address] Jan, Seasonal allergic rhinitis, unspecified trigger J30.2 and BMI 40.0-44.9, adult Z68.41 [facility] [address] [address]88 Jan, Viral URI J06.9 ; Seasonal allergic rhinitis, unspecified trigger J30.2 and BMI 40.0-44.9, adult Z68.41 [place] [address] [address]- 7098 Jan, [place] [address] 80[address]- 3990 Jan, Primary insomnia F51.01 and Cough R05 [facility] [place] [address] 7[address]12 [address] Jan, Viral URI J06.9 [place] [address] 01362- 2744 Jan, Sacral pain M53.3 [facility] [place] [address] 97[address] Jan, Nasal congestion R09.81 and BMI 40.0-44.9, adult Z68.41 [place] [address] 0[address]14- 9516 Dec, [place] [address] 23828- 2930 Dec, Low back pain M54.5 [place] [address] 56531- 8956 Dec, Primary insomnia F51.01 [place] [address] 17622- 6251 Nov, [place] [id number] [place] [address] 63699- 0736 Nov, Migraine without aura and with status migrainosus, not intractable G43.001 ; Low back pain M54.5 and Primary insomnia F51.01 [place] [id number] [place] [address] 30802- 8232 Nov, Routine gynecological examination Z01.419 ; Routine screening for STI (sexually transmitted infection) Z11.3 and HPV in female B97.7 [place] [address] 15[address]- 4616 14 Oct, 2017 Low back pain M54.5 ; Other chronic pain G89.29 ; Pain in right hip M25.551 ; Pain in left hip M25.552 ; Pain in right knee M25.561 and Pain in left knee M25.562 [place] [address] 76435- 6395 Oct, Primary insomnia F51.01 [place] [address] 33910- 5548 Oct, Low back pain M54.5 [place] [address] 56179- 6758 Sep, Encounter for immunization Z23 [place] [id number] [place] [address] 54640- 0844 Aug, Low back pain M54.5 and Primary insomnia F51.01 [place] [id number] [place] [address] 88581- 6894 Aug, Low back pain M54.5 and Primary insomnia F51.01 [facility] [address] [address] 05 Aug, 2017 Gastroenteritis and colitis, viral A08.4 [place] [id number] [place] [address] 25032- 6406 Aug, [place] [address], [place] [address] Aug, Hot flashes R23.2 ; Morbid obesity due to excess calories E66.01 and Mood disorder F39 [facility] [address] [place] [address] 07995- 3401 02 Aug, 2017 Hot flashes R23.2 ; Morbid obesity due to excess calories E66.01 and Mood disorder F39 [facility] [address] [place] [address] 92215- 7199 07 Jul, 2017 Low back pain M54.5 [facility] [id number] [place] [address] 63819 -2802 Jul, Lipoma of right lower extremity D17.23 and Acute left- sided thoracic back pain M54.6 [place] [id number] [place] [address] 97901- 5494 Jun, Low back pain M54.5 [place] [id number] [place] [address] 62213- 9691 May, Low back pain M54.5 [place] [id number] [place] [address] 24530- 2273 Apr, Right upper quadrant pain R10.11 ; Depression, unspecified depression type F32.9 ; Low back pain M54.5 ; Primary insomnia F51.01 ; Irritable bowel syndrome with diarrhea K58.0 ; Migraine without aura and with status migrainosus, not intractable G43.001 and Breast cancer screening Z12.39 [facility] [address] [place] [address] 81853- 6935 Apr, [place] [id number] [place] [address] 74610- 7210 Apr, Migraine without aura and with status migrainosus, not intractable G43.001 [place] [id number] [place] [address] 27657- 6465 March, [place] [id number] [place] [address] 25554- 4721 Feb, [facility] [address] 87[address]- 1008 Feb, [facility] [address] 82358 -6908 Feb, Sore throat J02.9 and Acute upper respiratory infection, unspecified J06.9 [place] [address] 26808- 8002 Feb, Dental examination Z01.20 and Supereruption K00.6 [facility] [place] [address] [address] Feb, Needlestick injury accident W27.3XXA and Employee exposure to blood Z57.8 [place] [address] 45076- 0353 Feb, Dental examination Z01.20 [place] [id number] [place] [address] 42344- 0340 28 Dec, 2016 Low back pain M54.5 [place] [id number] [place] [address] 91578- 1965 27 Dec, 2016 Acute upper respiratory infection, unspecified J06.9 and Other viral agents as the cause of diseases classified elsewhere B97.89 [facility] [id number] [place] [address] [phone] 23 Dec, 2016 Dental examination Z01.20 [facility] [id number] [place] [address] 16773 -8864 16 Dec, 2016 Gastroenteritis K52.9 [place] [address] 46067- 0167 10 Dec, 2016 Plantar fasciitis of left foot M72.2 [place] [address] 20624- 7669 Dec, Low back pain M54.5 [facility] [id number] [place] [address] 03400- 5778 Nov, Depression, unspecified depression type F32.9 ; Low back pain M54.5 ; Primary insomnia F51.01 ; Irritable bowel syndrome with diarrhea K58.0 ; Pain of left heel M79.672 and Migraine without aura and with status migrainosus, not intractable G43.001 [facility] [id number] [place] [address] 87522- 9844 Nov, Acute pain of right knee M25.561 and Primary insomnia F51.01 [place] [id number] [place] [address] 54186- 2964 Oct, [facility] [id number] [place] [address] 62065- 8367 Oct, Urinary pain R30.9 [facility] [id number] [place] [address] 93908 -2412 Oct, Acute recurrent maxillary sinusitis J01.01 [facility] [id number] [place] [address] 02337- 0701 Sep, Acute pain of right knee M25.561 [facility] [id number] [place] [address] 68518- 2263 Sep, [place] [id number] [place] [address] 52134- 4789 Sep, Arthralgia, unspecified joint M25.50 [facility] [id number] [place] [address] 48553- 1858 Sep, Hives L50.9 and Arthralgia, unspecified joint M25.50 [facility] [id number] [place] [address] 24907- 1379 Sep, [facility] [id number] [place] [address] 12371- 4224 Sep, Depression, unspecified depression type F32.9 ; Primary insomnia F51.01 ; Irritable bowel syndrome with diarrhea K58.0 ; Encounter to establish care Z76.89 and Increased urinary frequency R35.0 [facility] [id number] [place] [address] [phone] -[phone] Sep, Acute suppurative otitis media of right ear without spontaneous rupture of tympanic membrane, recurrence not specified H66.001 and Acute non-recurrent maxillary sinusitis J01.00 [facility] [id number] [place] [address] 93977 -3894 Sep, Cough R05 [place] [id number] [place] [address] [phone] Aug, Encounter for immunization Z23 [facility] [address] [place] [address] 35200- 9318 Aug, [facility] [address] [place] [address] 33468 -0796 Aug, Kyphosis of cervical region, unspecified kyphosis type M40.202 [place] [id number] [place] [address] [phone] Jul, Low back pain M54.5 and Depression, unspecified depression type F32.9 [facility] [place] [address] [id number] [place] [address] [phone] Jun, Strep throat J02.0 [facility] [address] [id number] [place] [address] [phone] Jun, Dental examination Z01.20 [facility] [id number] [place] [address] [phone] May, [facility] [id number] [place] [address] [phone] Apr, [facility] [id number] [place] [address] [phone] March, Depression, unspecified depression type F32.9 [facility] [id number] [place] [address] [phone] Feb, Routine lab draw Z00.00 ; Obesity E66.9 and Swelling of ankle M25.[address] [id number] [place] [phone] Jan, GE (gastroenteritis) K52.9 [address] [phone] Nov, Sinusitis J32.9 ; Allergic rhinitis J30.9 and Otitis externa, left H60.[address] [id number] [phone] Sep, Cough R05 IMMUNIZATIONS No Known Immunizations SOCIAL HISTORY Never Assessed REASON FOR VISIT Controlled Refill Request PLAN OF CARE VITAL SIGNS MEDICATIONS Medication Instructions Dosage Frequency Start Date End Date Duration Status Ambien 10 mg Orally Once a day [...]
--- OUTSIDE RECORDS SUMMARY | 2018-05-31 09:49 | XMS REPORT ---
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 Role Phone JASIEL JACOBS CP Unavailable Allergies No Known Allergies Problems Problem Type Condition Code Onset Dates Condition Status Assessment Arthralgia, unspecified joint M25.50 Active Problem Irritable bowel syndrome with diarrhea K58.0 Active Problem Encounter to establish care Z76.89 Active Problem Primary insomnia F51.01 Active Problem Depression, unspecified depression type F32.9 Active Assessment Hives L50.9 Active Problem Increased urinary frequency R35.0 Active Problem Low back pain M54.5 Active Medications No Known Medications Procedures Procedure Coding System Code Date ASSAY OF BLOOD/URIC ACID CPT-4 68303 Oct 04, 2016 RHEUMATOID FACTOR, QUANT CPT-4 49983 Oct 04, 2016 ANTINUCLEAR ANTIBODIES CPT-4 71354 Oct 04, 2016 C-REACTIVE PROTEIN CPT-4 25242 Oct 04, 2016 LUPUS PROFILE B (00071 X 2) CPT-4 55271 Oct 04, 2016 NUCLEAR ANTIGEN ANTIBODY CPT-4 18671 Oct 04, 2016 RBC SED RATE, NONAUTOMATED CPT-4 57132 Oct 04, 2016 DNA ANTIBODY CPT-4 21230 Oct 04, 2016 Results No Known Results Summary Purpose eClinicalWorks Submission
--- OUTSIDE RECORDS SUMMARY | 2018-05-31 09:49 | XMS REPORT ---
Author Author XIANG JERNIGAN e[employer] Address Unknown Phone Unavailable Care Team Providers Care Graduate Recruiter Name Role Phone XIANG JERNIGAN CP Unavailable Allergies, Adverse Reactions, Alerts Substance Reaction Event Type Cipro hives Drug Allergy Problems Problem Type Condition Code Onset Dates Condition Status Problem Depression, unspecified depression type F32.9 Active Assessment Kyphosis of cervical region, unspecified kyphosis type M40.202 Active Problem Low back pain M54.5 Active Medications Medication Code System Code Instructions Start Date End Date Status Dosage Ibuprofen [facility] [address]-86 800 MG Orally Three times a day Aug 10, 2016 1 tablet Tylenol PM Extra Strength [facility] [address]-56 500-25 MG Orally Once a day 1 tablet at bedtime as needed Cymbalta [facility] [address]-19 30 MG Orally Twice a day March 16, 2016 1 capsule Cyclobenzaprine HCl [facility] [address]-57 10 MG Orally Three times a day AugAug 26, 2016 1 tablet Procedures Procedure Coding System Code Date Office Visit, Est Pt., Level 3 CPT-4 39019 Aug 16, 2016 Vital Signs Date/Time: Aug 16, 2016 Cardiac Monitoring Heart Rate 90 bpm Weight 277.6 lbs Height 69 in BMI 40.99 Index Blood Pressure Diastolic 92 mmHg Blood Pressure Systolic 128 mmHg Results No Known Results Summary Purpose eClinicalWorks Submission
--- OUTSIDE RECORDS SUMMARY | 2018-05-31 09:49 | XMS REPORT ---
Author Author JASIEL JACOBS [facility] eClinicalWorks Address Unknown Phone Unavailable Care Team Providers Care Language Specialist Name Role Phone JASIEL JACOBS CP Unavailable Allergies, Adverse Reactions, Alerts Substance Reaction Event Type Cipro hives Drug Allergy Problems Problem Type Condition Code Onset Dates Condition Status Assessment Encounter to establish care Z76.89 Active Assessment Primary insomnia F51.01 Active Assessment Irritable bowel syndrome with diarrhea K58.0 Active Assessment Increased urinary frequency R35.0 Active Problem Irritable bowel syndrome with diarrhea K58.0 Active Problem Encounter to establish care Z76.89 Active Problem Primary insomnia F51.01 Active Problem Depression, unspecified depression type F32.9 Active Assessment Depression, unspecified depression type F32.9 Active Problem Increased urinary frequency R35.0 Active Problem Low back pain M54.5 Active Medications Medication Code System Code Instructions Start Date End Date Status Dosage Bentyl [facility] [address]-96 10 mg Orally 4 times a day Sep 27, 2016 1 tablet Cymbalta [facility] [address]-28 30 MG Orally Twice a day March 16, 2016 1 capsule Tylenol PM Extra Strength [facility] [address]-69 500-25 MG Orally Once a day 1 tablet at bedtime as needed Ambien [facility] [address]-13 10 mg Orally Once a day Sep 27, 2016 1 tablet at bedtime as needed Procedures Procedure Coding System Code Date COMPREHEN METABOLIC PANEL CPT-4 09576 Sep 27, 2016 LIPID PANEL CPT-4 33885 Sep 27, 2016 COMPLETE CBC W/AUTO DIFF WBC CPT-4 01119 Sep 27, 2016 URINALYSIS, AUTO, W/O SCOPE CPT-4 95353 Sep 27, 2016 GLYCATED HEMOGLOBIN TEST CPT-4 10831 Sep 27, 2016 VENIPUNCT, ROUTINE* CPT-4 23793 Sep 27, 2016 Office Visit, Est Pt., Level 4 CPT-4 20219 Sep 27, 2016 Vital Signs Date/Time: Sep 27, 2016 Cardiac Monitoring Heart Rate 88 bpm Weight 283.2 lbs Height 69 in BMI 41.82 Index Blood Pressure Diastolic 80 mmHg Blood Pressure Systolic 124 mmHg Results Name Result Date Reference Range Unit Abnormality Flag ROUTINE VENIPUNCTURE CBC ----Basos 0 58830016 % ----MCV 86 10420547 79-97 fL ----Hematocrit 39.1 60697411 34.0-46.6 % ----Eos 2 93682397 % ----MCHC 33.0 40025567 31.5-35.7 g/dL ----Monocytes 6 15797758 % ----MCH 28.5 41420910 26.6-33.0 pg ----Lymphs 28 68654972 % ----Eos (Absolute) 0.2 68445244 0.0-0.4 x10E3/uL ----WBC 7.5 89906924 3.4-10.8 x10E3/uL ----Monocytes(Absolute) 0.5 18242046 0.1-0.9 x10E3/uL ----Lymphs (Absolute) 2.1 71533477 0.7-3.1 x10E3/uL ----Hemoglobin 12.9 67752684 11.1-15.9 g/dL ----Neutrophils (Absolute) 4.7 28948796 1.4-7.0 x10E3/uL ----RBC 4.53 67353224 3.77-5.28 x10E6/uL ----Immature Grans (Abs) 0.0 72378031 0.0-0.1 x10E3/uL ----Immature Granulocytes 0 14931032 % ----Neutrophils 64 37175122 % ----Baso (Absolute) 0.0 65665316 0.0-0.2 x10E3/uL ----RDW 13.8 75223647 12.3-15.4 % ----Platelets 254 22486518 150-379 x10E3/uL A1C (IN HOUSE) ----A1C IN HOUSE 5.9 44965082 4.3 - 5.6 % ----Previous A1c na [id number] ----Lot [id number] ----Exp date [id number] UA LONG DIP (IN HOUSE) ----MAI Negtive 20160927 ----GLU Negative 20160927 ----SG 1.015 20160927 ----KET Negative 20160927 ----pH 8.5 20160927 ----Protein trace 20160927 ----BLO Negative 20160927 ----KALIA Negative 20160927 ----Color yellow 20160927 ----Odor none 20160927 ----Exp date [id number] ----URO 1.0 20160927 ----NIT Negative 20160927 ----Clarity slightly cloudy 20160927 ----Lot # [id number] LIPID PANEL ----LDL Cholesterol Calc 144 22667714 0-99 mg/dL H ----VLDL Cholesterol Ray 19 70497999 5-40 mg/dL ----HDL Cholesterol 51 98932164 >39 mg/dL ----Triglycerides 95 91185050 0-149 mg/dL ----Cholesterol, Total 214 42583571 100-199 mg/dL H CMP ----Creatinine, Serum 0.55 41085238 0.57-1.00 mg/dL L ----BUN 11 56509676 6-24 mg/dL ----eGFR If Africn Am 135 00119081 >59 mL/min/1.73 ----eGFR If NonAfricn Am 117 40003151 >59 mL/min/1.73 ----Sodium, Serum 139 67551630 136-144 mmol/L ----BUN/Creatinine Ratio 20 22114271 9-23 ----Chloride, Serum 102 22422800 97-106 mmol/L ----Potassium, Serum 4.4 07830676 3.5-5.2 mmol/L ----Carbon Dioxide, Total 25 17430032 18-29 mmol/L ----Protein, Total, Serum 6.5 25045219 6.0-8.5 g/dL ----Calcium, Serum 8.8 85486181 8.7-10.2 mg/dL ----Globulin, Total 2.5 59324066 1.5-4.5 g/dL ----Albumin, Serum 4.0 65749652 3.5-5.5 g/dL ----Bilirubin, Total 0.4 20160927 0.0-1.2 mg/dL ----Glucose, Serum 107 20160927 65-99 mg/dL H ----A/G Ratio 1.6 20160927 1.1-2.5 ----ALT (SGPT) 25 20160927 0-32 IU/L ----Alkaline Phosphatase, S 63 20160927 39-117 IU/L ----AST (SGOT) 22 20160927 0-40 IU/L Summary Purpose eClinicalWorks Submission
--- OUTSIDE RECORDS SUMMARY | 2018-05-31 09:49 | XMS REPORT ---
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 Role Phone CAITLYN MEJIAS Unavailable PROBLEMS Type Condition ICD9-CM Code CVS43-AU Code Onset Dates Condition Status SNOMED Code Problem Irritable bowel syndrome with diarrhea K58.0 Active 832661832 Problem Migraine without aura and with status migrainosus, not intractable G43.001 Active 93227204 Problem Primary insomnia F51.01 Active 5849845 Problem Depression, unspecified depression type F32.9 Active 33000377 Problem Low back pain M54.5 Active 124675227 Problem Observed sleep apnea G47.30 Active 77585801 Problem Other chronic pain G89.29 Active 46834134 Problem Dental caries K02.9 Active 52410429 Problem Pain of left heel M79.672 Active 3529832859293367 Problem Mood disorder F39 Active 31563714 Problem Morbid obesity due to excess calories E66.01 Active 934023428 ALLERGIES No Information ENCOUNTERS Encounter Location Date Diagnosis [facility] [address] [address] 22 Apr, 2018 Vaginal candidiasis B37.3 [facility] [id number] [place] [address] -0271 Apr, Vaginal candidiasis B37.3 [facility] [address] [place] [address] 8[address]20 -0985 11 Apr, 2018 Acute non-recurrent maxillary sinusitis J01.00 [facility] [id number] [place] [address] 88374- 7140 Apr, [facility] [id number] [place] [address] 31075- 4401 06 Apr, 2018 Primary insomnia F51.01 [facility] [id number] [place] [address] 64198 -3751 Apr, Sore throat J02.9 ; Seasonal allergic rhinitis, unspecified trigger J30.2 and BMI 40.0-44.9, adult Z68.41 [facility] [id number] [place] [address] 09463- 0700 Apr, Low back pain M54.5 [facility] [address] [address] Apr, Pain, dental K08.89 [facility] [address] [id number] March, Dental caries K02.9 [facility] [address] [address] March, [facility] [id number] [place] [address] 09889- 5981 March, [facility] [id number] [place] [address] 80277- 3008 March, [facility] [id number] [place] [address] 55541- 7775 March, Low back pain M54.5 and Primary insomnia F51.01 [facility] [id number] [place] [address] [id number] March, Dental examination Z01.20 [facility] [id number] [place] [address] 52336- 1037 Feb, [facility] [id number] [place] [address] 38886- 8856 Feb, Low back pain M54.5 [facility] [id number] [place] [address] [id number] Feb, Dental examination Z01.20 [facility] [id number] [place] [address] 34305- 7078 Feb, Primary insomnia F51.01 [facility] [address] 08[address] 28 Jan, 2018 BMI 40.0-44.9, adult Z68.41 and Observed sleep apnea G47.30 [place] [address] [address]- [address] 22 Jan, 2018 Dental examination Z01.20 [place] [address] [address]107- [address]79 20 Jan, 2018 Dental examination Z01.20 [place] [address] 15059- 7091 12 Jan, 2018 Low back pain M54.5 [place] [facility] [address] 45066- 4313 09 Jan, 2018 Acute laryngopharyngitis J06.0 and BMI 40.0-44.9, adult Z68.41 [facility] [address] [address]08 [address] 08 Jan, 2018 Seasonal allergic rhinitis, unspecified trigger J30.2 and BMI 40.0-44.9, adult Z68.41 [facility] [address] 61086 [address]8391 07 Jan, 2018 Viral URI J06.9 ; Seasonal allergic rhinitis, unspecified trigger J30.2 and BMI 40.0-44.9, adult Z68.41 [place] [address] 27312- [address]990 Jan, [place] [address] 8[address]13- 3830 Jan, Primary insomnia F51.01 and Cough R05 [facility] [address] 0[address]46 [address]8278 Jan, Viral URI J06.9 [place] [address] 67883- 0737 Jan, Sacral pain M53.3 [facility] [address] [place] [address] 49304 -1559 Jan, Nasal congestion R09.81 and BMI 40.0-44.9, adult Z68.41 [facility] [id number] [place] [address] 61333- 1527 Dec, [facility] [address] 63442- 6235 Dec, Low back pain M54.5 [facility] [id number] [place] [address] 51044- 8065 Dec, Primary insomnia F51.01 [facility] [id number] [place] [address] 91590- 3502 Nov, [place] [address] 27798- 3924 Nov, Migraine without aura and with status migrainosus, not intractable G43.001 ; Low back pain M54.5 and Primary insomnia F51.01 [facility] [id number] [place] [address] 53230- 1606 Nov, Routine gynecological examination Z01.419 ; Routine screening for STI (sexually transmitted infection) Z11.3 and HPV in female B97.7 [facility] [id number] [place] [address] 11609- 7783 Oct, Low back pain M54.5 ; Other chronic pain G89.29 ; Pain in right hip M25.551 ; Pain in left hip M25.552 ; Pain in right knee M25.561 and Pain in left knee M25.562 [facility] [id number] [place] [address] 38750- 2933 Oct, Primary insomnia F51.01 [facility] [id number] [place] [address] 49252- 4612 Oct, Low back pain M54.5 [place] [address] 73100- 4613 Sep, Encounter for immunization Z23 [facility] [id number] [place] [address] 41470- 9166 19 Aug, 2017 Low back pain M54.5 and Primary insomnia F51.01 [facility] [id number] [place] [address] 24900- 8246 10 Aug, 2017 Low back pain M54.5 and Primary insomnia F51.01 [facility] [id number] [place] [address] 51651 -1138 05 Aug, 2017 Gastroenteritis and colitis, viral A08.4 [place] [address] 22126- 1111 04 Aug, 2017 [facility] [id number] [place] [address] 89910- 8555 03 Aug, 2017 Hot flashes R23.2 ; Morbid obesity due to excess calories E66.01 and Mood disorder F39 [facility] [id number] [place] [address] 92522- 3618 02 Aug, 2017 Hot flashes R23.2 ; Morbid obesity due to excess calories E66.01 and Mood disorder F39 [facility] [id number] [place] [address] 02014- 3871 07 Jul, 2017 Low back pain M54.5 [facility] [id number] [place] [address] 54370 -1445 06 Jul, 2017 Lipoma of right lower extremity D17.23 and Acute left- sided thoracic back pain M54.6 [facility] [address] [place] [address] 05139- 5540 Jun, Low back pain M54.5 [facility] [id number] [place] [address] 26491- 3279 May, Low back pain M54.5 [facility] [id number] [place] [address] 67805- 2343 Apr, Right upper quadrant pain R10.11 ; Depression, unspecified depression type F32.9 ; Low back pain M54.5 ; Primary insomnia F51.01 ; Irritable bowel syndrome with diarrhea K58.0 ; Migraine without aura and with status migrainosus, not intractable G43.001 and Breast cancer screening Z12.39 [facility] [id number] [place] [address] 56912- 3268 Apr, [place] [address] 12836- 9147 Apr, Migraine without aura and with status migrainosus, not intractable G43.001 [place] [address] 70937- 2571 March, [place] [address] 06073- 8961 Feb, [place] [address] 69576- 2823 Feb, [facility] [id number] [place] [address] 37464 -6513 Feb, Sore throat J02.9 and Acute upper respiratory infection, unspecified J06.9 [facility] [id number] [place] [address] 71610- 9632 Feb, Dental examination Z01.20 and Supereruption K00.6 [facility] [id number] [place] [address] 79751 -2166 Feb, Needlestick injury accident W27.3XXA and Employee exposure to blood Z57.8 [place] [address] 32211- 7771 Feb, Dental examination Z01.20 [facility] [id number] [place] [address] 41195- 6288 Dec, Low back pain M54.5 [place] [address] 86816- 9388 Dec, Acute upper respiratory infection, unspecified J06.9 and Other viral agents as the cause of diseases classified elsewhere B97.89 [facility] [address] [place] [address] [phone] Dec, 2016 Dental examination Z01.20 [facility] [address] [place] [address] 21259 -8807 16 Dec, 2016 Gastroenteritis K52.9 [facility] [id number] [place] [address] 55424- 0304 10 Dec, 2016 Plantar fasciitis of left foot M72.2 [facility] [id number] [place] [address] 76163- 1419 Dec, Low back pain M54.5 [facility] [id number] [place] [address] 80717- 7942 Nov, Depression, unspecified depression type F32.9 ; Low back pain M54.5 ; Primary insomnia F51.01 ; Irritable bowel syndrome with diarrhea K58.0 ; Pain of left heel M79.672 and Migraine without aura and with status migrainosus, not intractable G43.001 [place] [address] [place] [address] 11911- 7733 Nov, Acute pain of right knee M25.561 and Primary insomnia F51.01 [facility] [id number] [place] [address] 89591- 6874 Oct, [place] [id number] [place] [address] 52230- 7523 Oct, Urinary pain R30.9 [facility] [place] [id number] [place] [address] 32889 -0743 Oct, Acute recurrent maxillary sinusitis J01.01 [place] [address] [place] [address] 46278- 6077 Sep, Acute pain of right knee M25.561 [place] [facility] [id number] [place] [address] 80877- 8136 Sep, [place] [address] 56371- 7963 Sep, Arthralgia, unspecified joint M25.50 [place] [address] 73317- 9506 Sep, Hives L50.9 and Arthralgia, unspecified joint M25.50 [place] [address] 56750- 7937 Sep, [address] 12612- 6289 Sep, Depression, unspecified depression type F32.9 ; Primary insomnia F51.01 ; Irritable bowel syndrome with diarrhea K58.0 ; Encounter to establish care Z76.89 and Increased urinary frequency R35.0 [facility] [address] [place] [address] 03085 -6026 Sep, Acute suppurative otitis media of right ear without spontaneous rupture of tympanic membrane, recurrence not specified H66.001 and Acute non-recurrent maxillary sinusitis J01.00 [facility] [address] [place] [id number] [place] [address] 82900 -6031 Sep, Cough R05 [facility] [id number] [place] [address] [phone] Aug, Encounter for immunization Z23 [place] [id number] [place] [address] 92813- 5866 Aug, [facility] [address] [place] [address] 97943 -5324 Aug, Kyphosis of cervical region, unspecified kyphosis type M40.202 [facility] [id number] [place] [address] [id number] Jul, Low back pain M54.5 and Depression, unspecified depression type F32.9 [facility] [id number] [place] [id number] Jun, Strep throat J02.0 [facility] [address] [id number] [id number] Jun, Dental examination Z01.20 [address] [place] [address] [id number] May, [address] [place] [address] [phone] Apr, [address] [id number] [place] [address] [id number] March, Depression, unspecified depression type F32.9 [address] [id number] [place] [address] [id number] Feb, Routine lab draw Z00.00 ; Obesity E66.9 and Swelling of ankle M25.473 [place] [id number] [place] [address] [id number] Jan, GE (gastroenteritis) K52.9 [place] [id number] [place] [address] [id number] Nov, Sinusitis J32.9 ; Allergic rhinitis J30.9 and Otitis externa, left H60.92 [place] [id number] [place] [address] [id number] Sep, Cough R05 IMMUNIZATIONS No Known Immunizations SOCIAL HISTORY Never Assessed REASON FOR VISIT Controlled Refill Request 12/22/17 PLAN OF CARE VITAL SIGNS MEDICATIONS Medication [...]
--- OUTSIDE RECORDS SUMMARY | 2018-05-31 09:50 | XMS REPORT ---
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 Name Role Phone IDALIA VAUGHAN CP Unavailable Allergies No Known Allergies Problems Problem Type Condition Code Onset Dates Condition Status Problem Depression, unspecified depression type F32.9 Active Assessment Encounter for immunization Z23 Active Problem Low back pain M54.5 Active Medications No Known Medications Procedures Procedure Coding System Code Date SINGLE IMMUNIZATION ADMIN CPT-4 52798 Aug 23, 2016 FLUARIX QUAD P-FREE 3 AND UP .50 2015 CPT-4 97820 Aug 23, 2016 Results No Known Results Immunizations Vaccine Administration Date FLUZONE QUAD 3 AND UP 0.50 2015Aug 23, 2016 Summary Purpose [employer] Submission
--- OUTSIDE RECORDS SUMMARY | 2018-05-31 09:50 | XMS REPORT ---
Author Author [facility] Address [address] [place] [address] Care Team Providers Care Sr. Director Product Management Name Role Phone CHALINO GODOY Unavailable PROBLEMS Type Condition ICD9-CM Code LKL35-II Code Onset Dates Condition Status SNOMED Code Problem Irritable bowel syndrome with diarrhea K58.0 Active 493419677 Problem Migraine without aura and with status migrainosus, not intractable G43.001 Active 41503957 Problem Primary insomnia F51.01 Active 6734341 Problem Depression, unspecified depression type F32.9 Active 72090919 Problem Low back pain M54.5 Active 288865679 Problem Observed sleep apnea G47.30 Active 41572771 Problem Other chronic pain G89.29 Active 96185345 Problem Dental caries K02.9 Active 68411627 Problem Pain of left heel M79.672 Active 4035187584291157 Problem Mood disorder F39 Active 86038933 Problem Morbid obesity due to excess calories E66.01 Active 786752534 ALLERGIES Substance Reaction Event Type Date Status Ciprofloxacin hives Drug Allergy Nov, Active ENCOUNTERS Encounter Location Date Diagnosis [facility] [id number] [place] [address] 62267- 6190 Apr, Vaginal candidiasis B37.3 [facility] [id number] [place] [address] 78518 -9498 Apr, Vaginal candidiasis B37.3 [facility] [id number] [place] [address] 52635 -4623 Apr, Acute non-recurrent maxillary sinusitis J01.00 [facility] [id number] [place] [address] 09198- 2795 Apr, [facility] [address] 76361[address] 4918 Apr, Primary insomnia F51.01 [facility] [address] [address] Apr, Sore throat J02.9 ; Seasonal allergic rhinitis, unspecified trigger J30.2 and BMI 40.0-44.9, adult Z68.41 [facility] [id number] [place] [address] 78631- 7540 Apr, Low back pain M54.5 [facility] [address] [facility] [id number] [place] [address] 35292- 8698 Apr, Pain, dental K08.89 [facility] [address] [id number] March, Dental caries K02.9 [facility] [address] 67845- 4848 March, [facility] [id number] [place] [address] 39006- 6426 March, [facility] [id number] [place] [address] 57030- 4816 March, [facility] [id number] [place] [address] 11041- 3485 March, Low back pain M54.5 and Primary insomnia F51.01 [facility] [address] [place] [address] [id number] March, Dental examination Z01.20 [facility] [id number] [place] [address] 69440- 5424 Feb, [facility] [id number] [place] [address] 25385- 2839 Feb, Low back pain M54.5 [facility] [id number] [place] [address] [id number] Feb, Dental examination Z01.20 [facility] [id number] [place] [address] 18164- 2255 Feb, Primary insomnia F51.01 [facility] [id number] [place] [address] 27456- 5389 Jan, BMI 40.0-44.9, adult Z68.41 and Observed sleep apnea G47.30 [place] [id number] [place] [address] 64325- 3440 Jan, Dental examination Z01.20 [place] [address] 50137- 9784 20 Jan, 2018 Dental examination Z01.20 [place] [address] 35777- 1913 12 Jan, 2018 Low back pain M54.5 [place] [address] 70566- 1384 09 Jan, 2018 Acute laryngopharyngitis J06.0 and BMI 40.0-44.9, adult Z68.41 [facility] [id number] [place] [address] 32384 -8326 08 Jan, 2018 Seasonal allergic rhinitis, unspecified trigger J30.2 and BMI 40.0-44.9, adult Z68.41 [facility] [place] [id number] [place] [address] 44351 -5566 07 Jan, 2018 Viral URI J06.9 ; Seasonal allergic rhinitis, unspecified trigger J30.2 and BMI 40.0-44.9, adult Z68.41 [facility] [id number] [place] [address] 94484- 2043 Jan, [place] [address] 81440- 6038 Jan, Primary insomnia F51.01 and Cough R05 [facility] [place] [id number] [place] [address] 89374 -8238 Jan, Viral URI J06.9 [place] [address] 33419- 8264 Jan, Sacral pain M53.3 [facility] [id number] [place] [address] 72607 -0791 Jan, Nasal congestion R09.81 and BMI 40.0-44.9, adult Z68.41 [facility] [id number] [place] [address] 01148- 8187 Dec, [place] [address] 33421- 7548 Dec, Low back pain M54.5 [place] [address] 00025- 8886 Dec, Primary insomnia F51.01 [facility] [address] 90163- 9617 Nov, [place] [address] 44007- 2107 Nov, Migraine without aura and with status migrainosus, not intractable G43.001 ; Low back pain M54.5 and Primary insomnia F51.01 [place] [address] 15903- 7702 Nov, Routine gynecological examination Z01.419 ; Routine screening for STI (sexually transmitted infection) Z11.3 and HPV in female B97.7 [place] [address] 11267- 5617 Oct, Low back pain M54.5 ; Other chronic pain G89.29 ; Pain in right hip M25.551 ; Pain in left hip M25.552 ; Pain in right knee M25.561 and Pain in left knee M25.562 [place] [address] 95306- 4233 Oct, Primary insomnia F51.01 [place] [address] 32976- 5418 Oct, Low back pain M54.5 [facility] [id number] [place] [address] 77081- 2543 16 Sep, 2017 Encounter for immunization Z23 [facility] [address] 53060- 0337 19 Aug, 2017 Low back pain M54.5 and Primary insomnia F51.01 [facility] [address] 83328- 6720 10 Aug, 2017 Low back pain M54.5 and Primary insomnia F51.01 [facility] [id number] [place] [address] 74770 -0712 05 Aug, 2017 Gastroenteritis and colitis, viral A08.4 [facility] [id number] [place] [address] 20440- 7035 04 Aug, 2017 [place] [address] 06224- 2951 Aug, Hot flashes R23.2 ; Morbid obesity due to excess calories E66.01 and Mood disorder F39 [facility] [id number] [place] [address] 66303- 3939 02 Aug, 2017 Hot flashes R23.2 ; Morbid obesity due to excess calories E66.01 and Mood disorder F39 [facility] [id number] [place] [address] 09736- 2909 07 Jul, 2017 Low back pain M54.5 [facility] [id number] [place] [address] 27701 -4923 06 Jul, 2017 Lipoma of right lower extremity D17.23 and Acute left- sided thoracic back pain M54.6 [facility] [id number] [place] [address] 59576- 8419 Jun, Low back pain M54.5 [facility] [id number] [place] [address] 26640- 3066 May, Low back pain M54.5 [facility] [address] [place] [address]1 Apr, Right upper quadrant pain R10.11 ; Depression, unspecified depression type F32.9 ; Low back pain M54.5 ; Primary insomnia F51.01 ; Irritable bowel syndrome with diarrhea K58.0 ; Migraine without aura and with status migrainosus, not intractable G43.001 and Breast cancer screening Z12.39 [place] [address] 78348- 5529 Apr, [place] [address] 25809- 8442 Apr, Migraine without aura and with status migrainosus, not intractable G43.001 [place] [address] 52522- 8124 March, [place] [address] 24221- 9181 Feb, [place] [address] 60829- 4568 Feb, [facility] [address] [place] [address] 80765 -0955 Feb, Sore throat J02.9 and Acute upper respiratory infection, unspecified J06.9 [place] [id number] [place] [address] 17833- 9055 Feb, Dental examination Z01.20 and Supereruption K00.6 [facility] [id number] [place] [address] 44860 -8068 Feb, Needlestick injury accident W27.3XXA and Employee exposure to blood Z57.[address] 01409- 1879 Feb, Dental examination Z01.20 [place] [id number] [place] [address] 07083- 6424 Dec, Low back pain M54.5 [place] [address] [place] [address] 81411- 7020 27 Dec, 2016 Acute upper respiratory infection, unspecified J06.9 and Other viral agents as the cause of diseases classified elsewhere B97.89 [facility] [address] [place] [address] [phone] 23 Dec, 2016 Dental examination Z01.20 [facility] W[facility] IN [address] 14465 -1054 16 Dec, 2016 Gastroenteritis K52.9 [place] [address] 20199- 2425 10 Dec, 2016 Plantar fasciitis of left foot M72.2 [place] [address] 70792- 0939 Dec, Low back pain M54.5 [place] [address] 74341- 3315 Nov, Depression, unspecified depression type F32.9 ; Low back pain M54.5 ; Primary insomnia F51.01 ; Irritable bowel syndrome with diarrhea K58.0 ; Pain of left heel M79.672 and Migraine without aura and with status migrainosus, not intractable G43.001 [place] [id number] [place] [address] 79095- 5973 Nov, Acute pain of right knee M25.561 and Primary insomnia F51.01 [place] [id number] [place] [address] 87438- 5685 Oct, [place] [id number] [place] [address] 72315- 9643 Oct, Urinary pain R30.9 [facility] [place] [id number] [place] [address] 17783 -7423 Oct, Acute recurrent maxillary sinusitis J01.01 [place] [address] 99087- 6610 Sep, Acute pain of right knee M25.561 [facility] [id number] [place] [address] 74464- 3344 Sep, [facility] [id number] [place] [address] 80561- 2770 Sep, Arthralgia, unspecified joint M25.50 [place] [address] 19825- 2368 Sep, Hives L50.9 and Arthralgia, unspecified joint M25.50 [place] [id number] [place] [address] 06918- 7617 Sep, [place] [id number] [place] [address] 02555- 0890 Sep, Depression, unspecified depression type F32.9 ; Primary insomnia F51.01 ; Irritable bowel syndrome with diarrhea K58.0 ; Encounter to establish care Z76.89 and Increased urinary frequency R35.0 [facility] [id number] [place] [address] 14654 -0259 Sep, Acute suppurative otitis media of right ear without spontaneous rupture of tympanic membrane, recurrence not specified H66.001 and Acute non-recurrent maxillary sinusitis J01.00 [facility] [address] [place] [id number] [place] [address] 16301 -2066 Sep, Cough R05 [facility] [id number] [place] [address] [phone] Aug, Encounter for immunization Z23 [place] [id number] [place] [address] 51950- 9885 Aug, [facility] [address] 31842 -1625 Aug, Kyphosis of cervical region, unspecified kyphosis type M40.202 [facility] [id number] [place] [address] [phone] Jul, Low back pain M54.5 and Depression, unspecified depression type F32.9 [facility] [id number] [phone] Jun, Strep throat J02.0 [facility]AL[facility] [address] [id number] [id number] Jun, Dental examination Z01.20 [facility] [id number] [id number] May, [facility] [id number] [place] [address] [id number] Apr, [address] [place] [address] [phone] March, Depression, unspecified depression type F32.9 [address] [id number] Feb, Routine lab draw Z00.00 ; Obesity E66.9 and Swelling of ankle M25.473 [place] [place] [address] [id number] Jan, GE (gastroenteritis) K52.9 [address] [id number] Nov, Sinusitis J32.9 ; Allergic rhinitis J30.9 and Otitis externa, left H60.[address] [place] [address] [phone] Sep, Cough R05 IMMUNIZATIONS No Known Immunizations SOCIAL HISTORY Never Assessed REASON FOR VISIT Well Woman Exam has been 15 years. [place]in PLAN OF CARE Activity Details Follow Up 1 Year, sooner prn Reason: Pending Test PAP AND HPV VITAL SIGNS Height 69 in 2017-11-21 Weight 285 lbs 2017-11-21 Temperature 98.4 degrees Fahrenheit 2017-11-21 Heart Rate 92 bpm 2017-11-21 Respiratory Rate 20 2017-11-21 BMI 42.08 kg/m2 2017-11-21 Blood pressure systolic 130 mmHg 2017-11-21 Blood pressure diastolic 90 mmHg 2017-11-21 MEDICATIONS Medication Instructions Dosage Frequency Start Date End Date Duration Status Ambien CR 12.5 MG Orally Once a day 1 tablet at bedtime as needed 24h 28 days Not-Taking Bentyl 10 mg Orally 4 times a day 1 tablet 6h 15 Sep, 2016 Active Protonix 40 mg Orally Once a day 1 tablet 24h Aug, 30 day(s) Active Lawvgxkarh-QKPH-Aqmmhyhv 50-325-40 MG Orally every 4 hrs 2 at onset then one every four max 6 daily 4h Sep, Active Calcium + D3 600-200 MG-UNIT Orally 2 times a day 1 tablet with a meal 12h Active Cymbalta 60 mg Orally Once a day 1 capsule 24h Aug, 30 day(s) Active Cymbalta 30 MG Orally Once a day 1 capsule 24h March, Active Fish Oil 1000 MG Orally 2 times a day 1 capsule 12h Active Ambien 10 mg Orally Once a day 1 tablet at bedtime as needed 24h Nov, 28 days Active Hydrocodone-Acetaminophen 7.5-325 MG Orally 3 times a day 1 tablet as needed 8h Oct, 28 days Active RESULTS No Results PROCEDURES Procedure Date Ordered Result Body Site SPECIMEN HANDLING Nov 21, 2017 Bacterial Vaginosis In House Nov 21, 2017 No Charge Nov 21, 2017 TRICHOMONAS ASSAY W/OPTIC Nov 21, 2017 CULTURE, BACTERIA, OTHER Nov 21, 2017 INSTRUCTIONS MEDICATIONS ADMINISTERED No Known Medications MEDICAL [...]
--- OUTSIDE RECORDS SUMMARY | 2018-05-31 09:50 | XMS REPORT ---
Author Author REYNALDO JASIEL Organization [facility] Address [address] [place] [address] Care Team Providers Care Refrigeration Person Name Role Phone JASIEL JACOBS Unavailable PROBLEMS Type Condition ICD9-CM Code JHC54-LQ Code Onset Dates Condition Status SNOMED Code Problem Depression, unspecified depression type F32.9 Active 84325940 Problem Dental caries K02.9 Active 54164041 Problem Pain of left heel M79.672 Active 1233920567742647 Problem Irritable bowel syndrome with diarrhea K58.0 Active 419254042 Problem Low back pain M54.5 Active 612727642 Problem Migraine without aura and with status migrainosus, not intractable G43.001 Active 27552509 Problem Primary insomnia F51.01 Active 5521673 ALLERGIES Substance Reaction Event Type Date Status Ciprofloxacin hives Drug Allergy Nov, Active SOCIAL HISTORY No smoking Hx information available PLAN OF CARE Activity Details Follow Up 2 Weeks after cecilia appt Reason: VITAL SIGNS Height 69 in 2016-12-01 Weight 284.7 lbs 2016-12-01 Temperature 98.0 degrees Fahrenheit 2016-12-01 Heart Rate 84 bpm 2016-12-01 Respiratory Rate 20 2016-12-01 BMI 42.04 kg/m2 2016-12-01 Blood pressure systolic 126 mmHg 2016-12-01 Blood pressure diastolic 90 mmHg 2016-12-01 MEDICATIONS Medication Instructions Dosage Frequency Start Date End Date Duration Status Hydrocodone-Acetaminophen 7.5-325 MG Orally 3 times a day 1 tablet as needed 8h Nov, Active Bentyl 10 mg Orally 4 times a day 1 tablet 6h Sep, Active Ambien 10 mg Orally Once a day 1 tablet at bedtime as needed 24h Nov, Active Vsvjindgay-NZIP-Moutrovo 50-325-40 MG Orally every 4 hrs 2 at onset then one every four max 6 daily 4h Sep, Active Cymbalta 30 MG Orally Twice a day 1 capsule 12h March, Active RESULTS Name Result Date Reference Range Xray : Calcaneus, Left (IN HOUSE) 2016-12-01 PROCEDURES Procedure Date Ordered Related Diagnosis Body Site Office Visit, Est Pt., Level 4 Dec 01, 2016 X-RAY EXAM OF HEEL Dec 01, 2016 IMMUNIZATIONS No Known Immunizations
--- OUTSIDE RECORDS SUMMARY | 2018-05-31 09:50 | XMS REPORT ---
Author Author CAITLYN MEJIAS Organization [facility] Address [address] [place] [address] Care Team Providers Care Professor Of Mechanical Engineering Name Role Phone CAITLYN MEJIAS Unavailable PROBLEMS Type Condition ICD9-CM Code KUY01-TR Code Onset Dates Condition Status SNOMED Code Problem Irritable bowel syndrome with diarrhea K58.0 Active 250532010 Problem Migraine without aura and with status migrainosus, not intractable G43.001 Active 18303479 Problem Primary insomnia F51.01 Active 3564053 Problem Depression, unspecified depression type F32.9 Active 38810524 Problem Low back pain M54.5 Active 497545196 Problem Observed sleep apnea G47.30 Active 51848209 Problem Other chronic pain G89.29 Active 79155161 Problem Dental caries K02.9 Active 11701688 Problem Pain of left heel M79.672 Active 6477649839672755 Problem Mood disorder F39 Active 19011002 Problem Morbid obesity due to excess calories E66.01 Active 281967116 ALLERGIES Substance Reaction Event Type Date Status Ciprofloxacin hives Drug Allergy Oct, Active ENCOUNTERS Encounter Location Date Diagnosis [facility] [id number] [place] [address] 78733- 1617 Apr, Primary insomnia F51.01 [facility] [id number] [place] [address] 76102 -2205 Apr, Sore throat J02.9 ; Seasonal allergic rhinitis, unspecified trigger J30.2 and BMI 40.0-44.9, adult Z68.41 [facility] [id number] [place] [address] 48198- 6756 Apr, Low back pain M54.5 [facility] [id number] [place] [address] 99994- 0641 Apr, Pain, dental K08.89 [facility] [address] [id number] [id number] March, Dental caries K02.9 [facility] [id number] [place] [address] 66543- 5002 March, [facility] [id number] [place] [address] 34866- 3137 March, [facility] [id number] [place] [address] 80723- 0765 March, [facility] [id number] [place] [address] 08568- 0722 March, Low back pain M54.5 and Primary insomnia F51.01 [facility] [id number] [place] [address] [id number] March, Dental examination Z01.20 [facility] [id number] [place] [address] 25796- 6842 Feb, [facility] [id number] [place] [address] 59656- 5256 Feb, Low back pain M54.5 [facility] [id number] [place] [address] [phone] Feb, Dental examination Z01.20 [facility] [address] [place] [address] 55964- 2888 Feb, Primary insomnia F51.01 [facility] [id number] [place] [address] 10860- 3775 Jan, BMI 40.0-44.9, adult Z68.41 and Observed sleep apnea G47.30 [facility] [id number] [place] [address] 22165- 6899 Jan, Dental examination Z01.20 [facility] [id number] [place] [address] 59401- 4523 Jan, Dental examination Z01.20 [facility] [address] 52288- 8689 Jan, Low back pain M54.5 [place] [address] 76641- 1756 Jan, Acute laryngopharyngitis J06.0 and BMI 40.0-44.9, adult Z68.41 [facility] [place] [address] 09520 -7013 Jan, Seasonal allergic rhinitis, unspecified trigger J30.2 and BMI 40.0-44.9, adult Z68.41 [facility] [place] [address] 56978 -1468 07 Jan, 2018 Viral URI J06.9 ; Seasonal allergic rhinitis, unspecified trigger J30.2 and BMI 40.0-44.9, adult Z68.41 [place] [address] 99705- 8171 Jan, [place] [address] 11628- 4130 Jan, Primary insomnia F51.01 and Cough R05 [facility] [place] [address] 79333 -2583 Jan, Viral URI J06.9 [place] [address] 01835- 1972 Jan, Sacral pain M53.3 [facility] [place] [address] 92608 -2157 Jan, Nasal congestion R09.81 and BMI 40.0-44.9, adult Z68.41 [place] [address] 90124- 2965 Dec, [place] [address] 07172- 8581 Dec, Low back pain M54.5 [place] [address] [place] [address] Dec, Primary insomnia F51.01 [place] [address] 22718- 3882 Nov, [place] [address] 18867- 6914 Nov, Migraine without aura and with status migrainosus, not intractable G43.001 ; Low back pain M54.5 and Primary insomnia F51.01 [place] [address] 22469- 1647 Nov, Routine gynecological examination Z01.419 ; Routine screening for STI (sexually transmitted infection) Z11.3 and HPV in female B97.7 [place] [address] 70913- 5091 Oct, Low back pain M54.5 ; Other chronic pain G89.29 ; Pain in right hip M25.551 ; Pain in left hip M25.552 ; Pain in right knee M25.561 and Pain in left knee M25.562 [place] [address] 85498- 0398 Oct, Primary insomnia F51.01 [place] [address] 40109- 4184 Oct, Low back pain M54.5 [place] [address] 12568- 3450 Sep, Encounter for immunization Z23 [place] [address] 58908- 4118 Aug, Low back pain M54.5 and Primary insomnia F51.01 [place] [address] 78541- 4402 Aug, Low back pain M54.5 and Primary insomnia F51.01 [facility] [address] 49979 -5448 Aug, Gastroenteritis and colitis, viral A08.4 [place] [id number] [place] [address] 91722- 6352 Aug, [place] [id number] [place] [address] 77609- 8084 Aug, Hot flashes R23.2 ; Morbid obesity due to excess calories E66.01 and Mood disorder F39 [place] [address] 74522- 4341 02 Aug, 2017 Hot flashes R23.2 ; Morbid obesity due to excess calories E66.01 and Mood disorder F39 [place] [address] 73015- 2525 07 Jul, 2017 Low back pain M54.5 [facility] [id number] [place] [address] 00122 -1813 06 Jul, 2017 Lipoma of right lower extremity D17.23 and Acute left- sided thoracic back pain M54.6 [place] [id number] [place] [address] 65704- 3316 Jun, Low back pain M54.5 [place] [id number] [place] [address] 78255- 1027 May, Low back pain M54.5 [place] [id number] [place] [address] 90319- 7483 Apr, Right upper quadrant pain R10.11 ; Depression, unspecified depression type F32.9 ; Low back pain M54.5 ; Primary insomnia F51.01 ; Irritable bowel syndrome with diarrhea K58.0 ; Migraine without aura and with status migrainosus, not intractable G43.001 and Breast cancer screening Z12.39 [facility] [id number] [place] [address] 28964- 6200 Apr, [place] [id number] [place] [address] 94534- 1368 16 Sean, 2017 Migraine without aura and with status migrainosus, not intractable G43.001 [facility] [id number] [place] [address] 65517- 9954 March, [facility] [id number] [place] [address] 23703- 7644 Feb, [facility] [id number] [place] [address] 58211- 4532 Feb, [facility] [address] 69006 -8668 14 Feb, 2017 Sore throat J02.9 and Acute upper respiratory infection, unspecified J06.9 [place] [address] 86632- 2529 12 Feb, 2017 Dental examination Z01.20 and Supereruption K00.6 [facility] [place] [address] 28001 -8618 Feb, Needlestick injury accident W27.3XXA and Employee exposure to blood Z57.8 [place] [id number] [place] [address] 46977- 4474 05 Feb, 2017 Dental examination Z01.20 [place] [id number] [place] [address] 05417- 2199 28 Dec, 2016 Low back pain M54.5 [place] [id number] [place] [address] 04380- 3548 27 Dec, 2016 Acute upper respiratory infection, unspecified J06.9 and Other viral agents as the cause of diseases classified elsewhere B97.89 [facility] [id number] [place] [address] [phone] 23 Dec, 2016 Dental examination Z01.20 [facility] [id number] [place] [address] 73204 -1524 16 Dec, 2016 Gastroenteritis K52.9 [place] [address] 58013- 2477 Dec, Plantar fasciitis of left foot M72.2 [facility] [id number] [place] [address] 35710- 1086 Dec, Low back pain M54.5 [facility] [id number] [place] [address] 35261- 3586 Nov, Depression, unspecified depression type F32.9 ; Low back pain M54.5 ; Primary insomnia F51.01 ; Irritable bowel syndrome with diarrhea K58.0 ; Pain of left heel M79.672 and Migraine without aura and with status migrainosus, not intractable G43.001 [place] [address] 70497- 7481 Nov, Acute pain of right knee M25.561 and Primary insomnia F51.01 [facility] [id number] [place] [address] 42350- 4155 Oct, [facility] [id number] [place] [address] 34634- 6604 Oct, Urinary pain R30.9 [facility] [address] 87329 -0263 Oct, Acute recurrent maxillary sinusitis J01.01 [facility] [id number] [place] [address] 74489- 2653 Sep, Acute pain of right knee M25.561 [facility] [id number] [place] [address] 17330- 8482 Sep, [facility] [id number] [place] [address] 82039- 8712 Sep, Arthralgia, unspecified joint M25.50 [facility] [id number] [place] [address] 48679- 6131 Sep, Hives L50.9 and Arthralgia, unspecified joint M25.50 [facility] [address] 60847- 3528 Sep, [facility] [id number] [place] [address] 95469- 1785 15 Sep, 2016 Depression, unspecified depression type F32.9 ; Primary insomnia F51.01 ; Irritable bowel syndrome with diarrhea K58.0 ; Encounter to establish care Z76.89 and Increased urinary frequency R35.0 [facility] [address] 81784 -2963 Sep, Acute suppurative otitis media of right ear without spontaneous rupture of tympanic membrane, recurrence not specified H66.001 and Acute non-recurrent maxillary sinusitis J01.00 [facility] [address] [place] [address] 04956 -5819 Sep, Cough R05 [address] [id number] Aug, Encounter for immunization Z23 [address] 04976- 0648 Aug, [facility] [address] [place] [address] 40373 -7212 Aug, Kyphosis of cervical region, unspecified kyphosis type M40.202 [place] [id number] [place] [address] [phone] Jul, Low back pain M54.5 and Depression, unspecified depression type F32.9 [facility] [address] [id number] [phone] Jun, Strep throat J02.0 [facility] [id number] [place] [phone] Jun, Dental examination Z01.20 [place] [address] [place] [id number] [place] [address] [phone] May, [facility] [id number] [place] [phone] Apr, [address] [id number] March, Depression, unspecified depression type F32.9 [facility] [address] [facility] [id number] [id number] Feb, Routine lab draw Z00.00 ; Obesity E66.9 and Swelling of ankle M25.473 [place] [id number] [phone] Jan, GE (gastroenteritis) K52.9 [address] [place] [id number] Nov, Sinusitis J32.9 ; Allergic rhinitis J30.9 and Otitis externa, left H60.92 [address] [employer] [place] [phone] Sep, Cough R05 IMMUNIZATIONS No Known Immunizations SOCIAL HISTORY Never Assessed REASON FOR VISIT [facility] CARE VITAL SIGNS Height 69 in 2017-10-26 Weight 285 lbs 2017-10-26 Temperature 98.0 degrees Fahrenheit 2017-10-26 Heart Rate 90 bpm 2017-10-26 Respiratory Rate 20 2017-10-26 BMI 42.08 kg/m2 2017-10-26 Blood pressure systolic 100 mmHg 2017-10-26 Blood pressure diastolic 78 mmHg 2017-10-26 MEDICATIONS Medication Instructions Dosage Frequency Start Date End Date Duration Status Ambien 10 mg Orally Once a day 1 tablet at bedtime as needed 24h Nov, 28 days Active Hydrocodone-Acetaminophen 7.5-325 MG Orally 3 times a day 1 tablet as needed 8h Oct, 28 days Active Protonix 40 mg Orally Once a day 1 tablet 24h Aug, 30 day(s) Active Ambien CR 12.5 MG Orally Once a day 1 tablet at bedtime as needed 24h 28 days Not-Taking Bentyl 10 mg Orally 4 times a day 1 tablet 6h Sep, Active Cymbalta 60 mg Orally Once a day 1 capsule 24h Aug, 30 day(s) Active Cymbalta 30 MG Orally Once a day 1 capsule 24h March, Active Ygluzmwqwg-NMGX-Bbqwfjfj 50-325-40 MG Orally every 4 hrs 2 at onset then one every four max 6 daily 4h Sep, Active RESULTS No Results PROCEDURES No Known [...]
--- OUTSIDE RECORDS SUMMARY | 2018-05-31 09:50 | XMS REPORT ---
Author Author JASIEL JACOBS [facility] [employer] Address Unknown Phone Unavailable Care Team Providers Care Library Clerical Assistant Name Role Phone JASIEL JACOBS Unavailable Allergies No Known Allergies Problems Problem [...] Instructions Start Date End Date Status Dosage Srinivasa [facility] [address]-02 8-90 MG Orally Twice a day Sep 28, 2016Oct one tablet daily x 10 days then one bid x 10 days then two in the am and one in the pm for 10 days then two tablets Results No Known Results Summary Purpose eClinicalWorks Submission
--- OUTSIDE RECORDS SUMMARY | 2018-05-31 09:51 | XMS REPORT ---
Author Author IDALIA VAUGHAN Organization [employer] Address Unknown Phone Unavailable Care Team Providers Care Railroad Engineer Name Role Phone IDALIA VAUGHAN CP Unavailable Allergies No Known Allergies Problems Problem Type Condition Code Onset Dates Condition Status Problem Depression, unspecified depression type F32.9 Active Problem Low back pain M54.5 Active Medications No Known Medications Results No Known Results Summary Purpose [employer] Submission
--- OUTSIDE RECORDS SUMMARY | 2018-05-31 09:51 | XMS REPORT ---
Author DARA Kramer Organization [employer] Address Unknown Phone Unavailable Care Team Providers Care Cement Contractor Name Role Phone DARA BUTLER CP Unavailable Allergies, Adverse Reactions, Alerts Substance Reaction Event Type Cipro hives Drug Allergy Problems Problem Type Condition Code Onset Dates Condition Status Assessment Dental examination Z01.20 Active Problem Depression, unspecified depression type F32.9 Active Medications Medication Code System Code Instructions Start Date End Date Status Dosage Cymbalta [facility] [address]-85 30 MG Orally Twice a day March 16, 2016 1 [place] [address]-53 500-25 MG Orally Once a day 1 tablet at bedtime as needed Cymbalta [facility] 24045804474 30 MG Orally Twice a day 1 capsule Procedures Procedure Coding System Code Date PROPHYLAXIS - ADULT CPT-4 D1110 Jul 05, 2016 TOPICAL FLUORIDE VARNISH CPT-4 D1206 Jul 05, 2016 INTRAORL - CMPL SERIES CODE 15132 CPT-4 D0210 Jul 05, 2016 Billing Notes on claim CPT-4 EC109 Jul 05, 2016 [facility] Employee/Board adjustment CPT-4 [facility] Jul 05, 2016 Vital Signs Date/Time: Jul 05, 2016 Blood Pressure Diastolic 79 mmHg Blood Pressure Systolic 127 mmHg Results No Known Results Summary Purpose eClinicalWorks Submission
--- OUTSIDE RECORDS SUMMARY | 2018-05-31 09:51 | XMS REPORT ---
Author Author JASIEL JACOBS Organization [facility] Address [address] [place] [address] Care Team Providers Care Equipment Maintenance Engineer Name Role Phone ЮЛИЯ JACOBSNETTE Unavailable PROBLEMS Type Condition ICD9-CM Code SCC45-FR Code Onset Dates Condition Status SNOMED Code Problem Depression, unspecified depression type F32.9 Active 03262674 Problem Dental caries K02.9 Active 17709887 Problem Pain of left heel M79.672 Active 8013516643159869 Problem Irritable bowel syndrome with diarrhea K58.0 Active 789398868 Problem Low back pain M54.5 Active 934709233 Problem Migraine without aura and with status migrainosus, not intractable G43.001 Active 06216138 Problem Primary insomnia F51.01 Active 8300685 ALLERGIES No Information SOCIAL HISTORY Never Assessed PLAN OF CARE VITAL SIGNS MEDICATIONS Medication Instructions Dosage Frequency Start Date End Date Duration Status Hydrocodone-Acetaminophen 7.5-325 MG Orally 3 times a day 1 tablet as needed 8h Dec, Jan, 28 days Active RESULTS No Results [...]
--- OUTSIDE RECORDS SUMMARY | 2018-05-31 09:51 | XMS REPORT ---
Author Author JASIEL JACOBS Organization [facility] Address [address] [place] [address] Care Team Providers Care Defensive Secondary Coach Name Role Phone JASIEL JACOBS Unavailable PROBLEMS Type Condition ICD9-CM Code DFX78-LN Code Onset Dates Condition Status SNOMED Code Problem Depression, unspecified depression type F32.9 Active 65207537 Problem Dental caries K02.9 Active 44912448 Problem Pain of left heel M79.672 Active 4003618254922363 Problem Irritable bowel syndrome with diarrhea K58.0 Active 461452871 Problem Low back pain M54.5 Active 474583925 Problem Migraine without aura and with status migrainosus, not intractable G43.001 Active 26313968 Problem Primary insomnia F51.01 Active 4160345 ALLERGIES Unknown Allergies SOCIAL HISTORY No smoking Hx information available PLAN OF CARE VITAL SIGNS MEDICATIONS Medication Instructions Dosage Frequency Start Date End Date Duration Status Hydrocodone-Acetaminophen 7.5-325 MG Orally 3 times a day 1 tablet as needed 8h Dec, Active RESULTS No Results PROCEDURES No Known procedures IMMUNIZATIONS No Known Immunizations
--- OUTSIDE RECORDS SUMMARY | 2018-05-31 09:51 | XMS REPORT ---
Author Author JASIEL JACOBS [facility] eClinical[employer] Address Unknown Phone Unavailable Care Team Providers Care Shelving Supervisor Name Role Phone JASIEL JACOBS Unavailable Allergies No Known Allergies Problems Problem Type Condition Code Onset Dates Condition Status Problem Irritable bowel syndrome with diarrhea K58.0 Active Problem Encounter to establish care Z76.89 Active Problem Primary insomnia F51.01 Active Problem Depression, unspecified depression type F32.9 Active Assessment Arthralgia, unspecified joint M25.50 Active Problem Increased urinary frequency R35.0 Active Problem Low back pain M54.5 Active Medications No Known Medications Procedures Procedure Coding System Code Date RHEUMATOID FACTOR, QUANT CPT-4 07712 Oct 04, 2016 NUCLEAR ANTIGEN ANTIBODY CPT-4 99948 Oct 04, 2016 ANTINUCLEAR ANTIBODIES CPT-4 86384 Oct 04, 2016 VENIPUNCT, ROUTINE* CPT-4 21427 Oct 04, 2016 ASSAY OF BLOOD/URIC ACID CPT-4 63678 Oct 04, 2016 DNA ANTIBODY CPT-4 39042 Oct 04, 2016 LUPUS PROFILE B (57532 X 2) CPT-4 64911 Oct 04, 2016 RBC SED RATE, NONAUTOMATED CPT-4 94610 Oct 04, 2016 C-REACTIVE PROTEIN CPT-4 42370 Oct 04, 2016 Results Name Result Date Reference Range Unit Abnormality Flag URIC ACID, SERUM ----Uric Acid, Serum 4.7 [id number] 2.5-7.1 mg/dL RA (RHEUMATOID) FACTOR ----RA Latex Turbid. <10.0 [id number] 0.0-13.9 IU/mL ROUTINE VENIPUNCTURE LUPUS PROFILE B ----Antichromatin Antibodies <0.2 20161004 0.0-0.9 AI ----CHICO Direct Negative 20161004 Negative ----Complement C3, Serum 130 20161004 82-167 mg/dL ----Anti-DNA (DS) Ab Qn 1 [id number] 0-9 IU/mL ----Complement C4, Serum 28 20161004 14-44 mg/dL ESR/SED RATE (IN HOUSE) ----Exp Date 10 Jan [id number] 0 - 20 mm ----Lot # [id number] [id number] ----SED/ESR RATE 21 mm/hr 20161004 CRP ----C-Reactive Protein, Quant 5.6 20161004 0.0-4.9 mg/L H CHICO ----Antinuclear Antibodies, IFA Negative 20161004 Summary Purpose eClinicalWorks Submission
--- OUTSIDE RECORDS SUMMARY | 2018-05-31 09:51 | XMS REPORT ---
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 Name Role Phone CHALINO GODOY Unavailable PROBLEMS Type Condition ICD9-CM Code [id number] Code Onset Dates Condition Status SNOMED Code Problem Irritable bowel syndrome with diarrhea K58.0 Active 470734570 Problem Migraine without aura and with status migrainosus, not intractable G43.001 Active 48382143 Problem Primary insomnia F51.01 Active 3930986 Problem Depression, unspecified depression type F32.9 Active 29054680 Problem Low back pain M54.5 Active 858141123 Problem Observed sleep apnea G47.30 Active 89655823 Problem Other chronic pain G89.29 Active 93968920 Problem Dental caries K02.9 Active 40584843 Problem Pain of left heel M79.672 Active [id number] Problem Mood disorder F39 Active 18905801 Problem Morbid obesity due to excess calories E66.01 Active 213386664 ALLERGIES No Information ENCOUNTERS Encounter Location Date Diagnosis [facility] [address], [place] [address] 22 Apr, 2018 Vaginal candidiasis B37.3 [facility] [id number] [place] [address]30 20 Apr, 2018 Vaginal candidiasis B37.3 [facility] [id number] [place] [address] 58345 [address]8810 11 Apr, 2018 Acute non-recurrent maxillary sinusitis J01.00 [facility] [id number] [place] [address] 78074- 0690 Apr, [facility] [id number] [place] [address] 97180- 1303 06 Apr, 2018 Primary insomnia F51.01 [facility] [address], [place] [address] Apr, Sore throat J02.9 ; Seasonal allergic rhinitis, unspecified trigger J30.2 and BMI 40.0-44.9, adult Z68.41 [facility] [id number] [place] [address] 51583- 7438 Apr, Low back pain M54.5 [facility] [address] [address] Apr, Pain, dental K08.89 [facility] [address] [id number] March, Dental caries K02.9 [facility] [address] [address] March, [facility] [address] [address] March, [facility] [id number] [place] [address] 16793- 3750 March, [facility] [address] [address] March, Low back pain M54.5 and Primary insomnia F51.01 [facility] [id number] [place] [address] [id number] March, Dental examination Z01.20 [facility] [id number] [place] [address] 02604- 8430 Feb, [facility] [id number] [place] [address] 15949- 1734 Feb, Low back pain M54.5 [facility] [id number] [place] [address] [id number] Feb, Dental examination Z01.20 [facility] [id number] [place] [address] 48359- 0591 Feb, Primary insomnia F51.01 [place] [id number] [place] [address] 08084- 8680 28 Jan, 2018 BMI 40.0-44.9, adult Z68.41 and Observed sleep apnea G47.30 [place] [address] [address]35[address] 22 Jan, 2018 Dental examination Z01.20 [place] [address] 27392- 3649 20 Jan, 2018 Dental examination Z01.20 [place] [address] 96439- 6251 12 Jan, 2018 Low back pain M54.5 [place] [address] 01104- 4767 09 Jan, 2018 Acute laryngopharyngitis J06.0 and BMI 40.0-44.9, adult Z68.41 [facility] [address] [address] 08 Jan, 2018 Seasonal allergic rhinitis, unspecified trigger J30.2 and BMI 40.0-44.9, adult Z68.41 [facility] [place] [address] [address] 07 Jan, 2018 Viral URI J06.9 ; Seasonal allergic rhinitis, unspecified trigger J30.2 and BMI 40.0-44.9, adult Z68.41 [place] [id number] [place] [address] 33328- 5404 Jan, [place] [address] 98387- 3169 Jan, Primary insomnia F51.01 and Cough R05 [facility] [address] [address] Jan, Viral URI J06.9 [place] [address] 42675- 3472 Jan, Sacral pain M53.3 [facility] [id number] [place] [address] 56254 -7436 Jan, Nasal congestion R09.81 and BMI 40.0-44.9, adult Z68.41 [facility] [id number] [place] [address] 86537- 6625 Dec, [facility] [address] 61579- 2496 Dec, Low back pain M54.5 [place] [id number] [place] [address] 94810- 6755 Dec, Primary insomnia F51.01 [place] [id number] [place] [address] 32602- 4193 Nov, [place] [id number] [place] [address] 27562- 1398 Nov, Migraine without aura and with status migrainosus, not intractable G43.001 ; Low back pain M54.5 and Primary insomnia F51.01 [place] [facility] [id number] [place] [address] 90824- 6081 Nov, Routine gynecological examination Z01.419 ; Routine screening for STI (sexually transmitted infection) Z11.3 and HPV in female B97.7 [place] [id number] [place] [address] 59959- 1299 Oct, Low back pain M54.5 ; Other chronic pain G89.29 ; Pain in right hip M25.551 ; Pain in left hip M25.552 ; Pain in right knee M25.561 and Pain in left knee M25.562 [place] [id number] [place] [address] 99812- 3653 Oct, Primary insomnia F51.01 [facility] [id number] [place] [address] 85774- 0957 Oct, Low back pain M54.5 [place] [address] [place] [address] 16 Sep, 2017 Encounter for immunization Z23 [facility] [address] [address] 19 Aug, 2017 Low back pain M54.5 and Primary insomnia F51.01 [facility] [id number] [place] [address] 00107- 3286 10 Aug, 2017 Low back pain M54.5 and Primary insomnia F51.01 [facility] [id number] [place] [address] 61247 -9795 05 Aug, 2017 Gastroenteritis and colitis, viral A08.4 [place] [address] 21855- 9788 04 Aug, 2017 [place] [id number] [place] [address] 22010- 1094 03 Aug, 2017 Hot flashes R23.2 ; Morbid obesity due to excess calories E66.01 and Mood disorder F39 [facility] [id number] [place] [address] 32117- 2661 02 Aug, 2017 Hot flashes R23.2 ; Morbid obesity due to excess calories E66.01 and Mood disorder F39 [facility] [id number] [place] [address] 52669- 8216 07 Jul, 2017 Low back pain M54.5 [facility] [id number] [place] [address] 32459 -8064 06 Jul, 2017 Lipoma of right lower extremity D17.23 and Acute left- sided thoracic back pain M54.6 [facility] [id number] [place] [address] 11383- 7925 Jun, Low back pain M54.5 [facility] [id number] [place] [address] 32766- 1640 May, Low back pain M54.5 [facility] [id number] [place] [address] 47152- 6412 Apr, Right upper quadrant pain R10.11 ; Depression, unspecified depression type F32.9 ; Low back pain M54.5 ; Primary insomnia F51.01 ; Irritable bowel syndrome with diarrhea K58.0 ; Migraine without aura and with status migrainosus, not intractable G43.001 and Breast cancer screening Z12.39 [place] [address] 32770- 2052 Apr, [place] [address] 33008- 9651 Apr, Migraine without aura and with status migrainosus, not intractable G43.001 [place] [address] 96425- 1544 March, [place] [address] 67568- 5883 Feb, [place] [address] 78179- 8178 Feb, [facility] [address] 49428 -2561 Feb, Sore throat J02.9 and Acute upper respiratory infection, unspecified J06.9 [place] [id number] [place] [address] 42203- 4369 Feb, Dental examination Z01.20 and Supereruption K00.6 [facility] [id number] [place] [address] 06478 -2901 Feb, Needlestick injury accident W27.3XXA and Employee exposure to blood Z57.8 [place] [address] 26363- 5404 Feb, Dental examination Z01.20 [place] [id number] [place] [address] 81955- 3226 28 Dec, 2016 Low back pain M54.5 [place] [address] 15297- 2525 Dec, Acute upper respiratory infection, unspecified J06.9 and Other viral agents as the cause of diseases classified elsewhere B97.89 [facility] [id number] [place] [address] [id number] [phone] Dec, 2016 Dental examination Z01.20 [facility] [place] [id number] [place] [address] 77018 -2550 16 Dec, 2016 Gastroenteritis K52.9 [place] [address] 73455- 9804 10 Dec, 2016 Plantar fasciitis of left foot M72.2 [place] [id number] [place] [address] 65399- 8621 Dec, Low back pain M54.5 [place] [id number] [place] [address] 61316- 4674 Nov, Depression, unspecified depression type F32.9 ; Low back pain M54.5 ; Primary insomnia F51.01 ; Irritable bowel syndrome with diarrhea K58.0 ; Pain of left heel M79.672 and Migraine without aura and with status migrainosus, not intractable G43.001 [place] [id number] [place] [address] 25291- 4335 Nov, Acute pain of right knee M25.561 and Primary insomnia F51.01 [place] [id number] [place] [address] 10540- 8120 Oct, [place] [id number] [place] [address] 48133- 6041 Oct, Urinary pain R30.9 [facility] [place] [address] [id number] [place] [address] 72595 -2788 Oct, Acute recurrent maxillary sinusitis J01.01 [place] [id number] [place] [address] 68816- 0159 Sep, Acute pain of right knee M25.561 [place] [id number] [place] [address] 06162- 9407 Sep, [address] [address]- 8460 Sep, Arthralgia, unspecified joint M25.50 [place] [address] 23752- 0966 Sep, Hives L50.9 and Arthralgia, unspecified joint M25.50 [place] [id number] [place] [address] 77746- 9673 Sep, [address] 48783- 8407 Sep, Depression, unspecified depression type F32.9 ; Primary insomnia F51.01 ; Irritable bowel syndrome with diarrhea K58.0 ; Encounter to establish care Z76.89 and Increased urinary frequency R35.0 [facility] [address] [place] [id number] [place] [address] 71747 -4015 Sep, Acute suppurative otitis media of right ear without spontaneous rupture of tympanic membrane, recurrence not specified H66.001 and Acute non-recurrent maxillary sinusitis J01.00 [facility] [address] [place] [id number] [place] [address] 34789 -1656 Sep, Cough R05 [facility] [id number] [place] [address] [id number] Aug, Encounter for immunization Z23 [id number] [place] [address] 45129- 3949 Aug, [facility] [address] [place] [address] 67392 -1739 Aug, Kyphosis of cervical region, unspecified kyphosis type M40.202 [facility] [id number] [place] [address] [id number] Jul, Low back pain M54.5 and Depression, unspecified depression type F32.9 [facility] [address] [facility] [id number] [id number] Jun, Strep throat J02.[address] [id number] [id number] Jun, Dental examination Z01.20 [address] [id number] May, [address] [place] [address] [id number] Apr, [place] [id number] [place] [address] [id number] March, Depression, unspecified depression type F32.9 [place] [id number] [place] [address] [id number] Feb, Routine lab draw Z00.00 ; Obesity E66.9 and Swelling of ankle M25.473 [place] [id number] [place] [address] [id number] Jan, GE (gastroenteritis) K52.9 [place] [id number] [place] [address] [id number] Nov, Sinusitis J32.9 ; Allergic rhinitis J30.9 and Otitis externa, left H60.[address] [place] [address] [id number] Sep, Cough R05 IMMUNIZATIONS No Known Immunizations SOCIAL HISTORY Never Assessed REASON FOR VISIT [employer]PERVIS[employer] PRE[employer] hx updated PLAN OF CARE VITAL SIGNS MEDICATIONS Unknown [...]
--- OUTSIDE RECORDS SUMMARY | 2018-05-31 09:52 | XMS REPORT ---
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 Name Role Phone CAITLYN MEJIAS Unavailable PROBLEMS Type Condition ICD9-CM Code WVR32-ZW Code Onset Dates Condition Status SNOMED Code Problem Irritable bowel syndrome with diarrhea K58.0 Active 176096140 Problem Migraine without aura and with status migrainosus, not intractable G43.001 Active 69871505 Problem Primary insomnia F51.01 Active 9129897 Problem Depression, unspecified depression type F32.9 Active 79734559 Problem Low back pain M54.5 Active 672253886 Problem Observed sleep apnea G47.30 Active 99041179 Problem Other chronic pain G89.29 Active 57390154 Problem Dental caries K02.9 Active 23786587 Problem Pain of left heel M79.672 Active [id number] Problem Mood disorder F39 Active 59907272 Problem Morbid obesity due to excess calories E66.01 Active 465379475 ALLERGIES No Information ENCOUNTERS Encounter Location Date Diagnosis [facility] [id number] [place] [address] [id number] March, [facility] [address] [place] [address] [id number] March, Dental examination Z01.20 [facility] [address] [address] Feb, [facility] [address] [place] [id number] [place] [address] 65564- 9444 Feb, Low back pain M54.5 [facility] [address] [place] [address] [phone] Feb, Dental examination Z01.20 [facility] [id number] [place] [address] 03529- 8685 Feb, Primary insomnia F51.01 [facility] [id number] [place] [address] 79540- 5277 Jan, BMI 40.0-44.9, adult Z68.41 and Observed sleep apnea G47.30 [place] [id number] [place] [address] 35157- 0859 Jan, Dental examination Z01.20 [place] [address] [address]- 8409 20 Jan, 2018 Dental examination Z01.20 [place] [address] 7[address]- 4813 12 Jan, 2018 Low back pain M54.5 [place] [address] 26956- 9073 09 Jan, 2018 Acute laryngopharyngitis J06.0 and BMI 40.0-44.9, adult Z68.41 [facility] [address] [address] 08 Jan, 2018 Seasonal allergic rhinitis, unspecified trigger J30.2 and BMI 40.0-44.9, adult Z68.41 [facility] [id number] [place] [address] 85276 -1443 07 Jan, 2018 Viral URI J06.9 ; Seasonal allergic rhinitis, unspecified trigger J30.2 and BMI 40.0-44.9, adult Z68.41 [place] [id number] [place] [address] 39825- 9235 06 Jan, 2018 [place] [address] 96[address]- 6872 Jan, Primary insomnia F51.01 and Cough R05 [facility] [place] [id number] [place] [address] 20637 -8773 Jan, Viral URI J06.9 [place] [address] 77242- 2359 Jan, Sacral pain M53.3 [facility] [id number] [place] [address] 33373 -[phone] Jan, Nasal congestion R09.81 and BMI 40.0-44.9, adult Z68.41 [facility] [id number] [place] [address] 48436- 1224 Dec, [facility] [address] [address]37- 9932 Dec, Low back pain M54.5 [place] [address] 30378- 5078 Dec, Primary insomnia F51.01 [facility] [address] 36001- 3370 Nov, [place] [address] 93509- 1884 Nov, Migraine without aura and with status migrainosus, not intractable G43.001 ; Low back pain M54.5 and Primary insomnia F51.01 [place] [address] 08316- 6265 Nov, Routine gynecological examination Z01.419 ; Routine screening for STI (sexually transmitted infection) Z11.3 and HPV in female B97.7 [place] [address] 05424- 6881 Oct, Low back pain M54.5 ; Other chronic pain G89.29 ; Pain in right hip M25.551 ; Pain in left hip M25.552 ; Pain in right knee M25.561 and Pain in left knee M25.562 [place] [address] 67028- 0386 Oct, Primary insomnia F51.01 [facility] [id number] [place] [address] 67582- 4858 Oct, Low back pain M54.5 [place] [address] [id number] [place] [address] 49956- 5125 16 Sep, 2017 Encounter for immunization Z23 [facility] [address] 19903- 5001 19 Aug, 2017 Low back pain M54.5 and Primary insomnia F51.01 [facility] [id number] [place] [address] 76475- 1650 10 Aug, 2017 Low back pain M54.5 and Primary insomnia F51.01 [facility] [address] 62999 -4698 05 Aug, 2017 Gastroenteritis and colitis, viral A08.4 [place] [id number] [place] [address] 44609- 1440 04 Aug, 2017 [place] [address] 67825- 2715 03 Aug, 2017 Hot flashes R23.2 ; Morbid obesity due to excess calories E66.01 and Mood disorder F39 [facility] [id number] [place] [address] 34530- 7288 02 Aug, 2017 Hot flashes R23.2 ; Morbid obesity due to excess calories E66.01 and Mood disorder F39 [facility] [id number] [place] [address] 67686- 3243 07 Jul, 2017 Low back pain M54.5 [facility] [id number] [place] [address] 03317 -4269 Jul, Lipoma of right lower extremity D17.23 and Acute left- sided thoracic back pain M54.6 [facility] [id number] [place] [address] 22712- 8970 Jun, Low back pain M54.5 [facility] [id number] [place] [address] 47512- 7759 May, Low back pain M54.5 [facility] [address] [place] [address]- 0855 Apr, Right upper quadrant pain R10.11 ; Depression, unspecified depression type F32.9 ; Low back pain M54.5 ; Primary insomnia F51.01 ; Irritable bowel syndrome with diarrhea K58.0 ; Migraine without aura and with status migrainosus, not intractable G43.001 and Breast cancer screening Z12.39 [place] [address] 95464- 1305 Apr, [place] [address] 20741- 2442 Apr, Migraine without aura and with status migrainosus, not intractable G43.001 [place] [address] 27786- 4660 March, [address] [address]- 2518 Feb, [place] [address] 11738- 6471 Feb, [facility] [address] [place] [address] 24213 -2094 Feb, Sore throat J02.9 and Acute upper respiratory infection, unspecified J06.9 [place] [id number] [place] [address] 79137- 6604 Feb, Dental examination Z01.20 and Supereruption K00.6 [facility] [id number] [place] [address] 60313 -0538 Feb, Needlestick injury accident W27.3XXA and Employee exposure to blood Z57.[address] 57279- 1303 Feb, Dental examination Z01.20 [place] [address] 87434- 6720 Dec, Low back pain M54.5 [place] [id number] [place] [address] 41978- 0859 Dec, Acute upper respiratory infection, unspecified J06.9 and Other viral agents as the cause of diseases classified elsewhere B97.89 [facility] [address] [place] [address] [phone] Dec, 2016 Dental examination Z01.20 [facility] [place] [id number] [place] [address] 69795 -3958 16 Dec, 2016 Gastroenteritis K52.9 [place] [address] 27815- 3881 10 Dec, 2016 Plantar fasciitis of left foot M72.2 [place] [id number] [place] [address] 14585- 9884 Dec, Low back pain M54.5 [place] [address] 60639- 8288 Nov, Depression, unspecified depression type F32.9 ; Low back pain M54.5 ; Primary insomnia F51.01 ; Irritable bowel syndrome with diarrhea K58.0 ; Pain of left heel M79.672 and Migraine without aura and with status migrainosus, not intractable G43.001 [place] [id number] [place] [address] 40137- 7655 Nov, Acute pain of right knee M25.561 and Primary insomnia F51.01 [place] [address] [id number] [place] [address] 24489- 3882 Oct, [place] [address] [id number] [place] [address] 37480- 8940 Oct, Urinary pain R30.9 [facility] [place] [id number] [place] [address] 61139 -7164 Oct, Acute recurrent maxillary sinusitis J01.01 [place] [address] [id number] [place] [address] 40446- 8555 Sep, Acute pain of right knee M25.561 [place] [address] [place] [address] [id number] [place] [address] 09562- 9500 Sep, [facility] [address] 10525- 5834 Sep, Arthralgia, unspecified joint M25.50 [place] [address] 54503- 8136 Sep, Hives L50.9 and Arthralgia, unspecified joint M25.50 [place] [address] 65843- 4380 Sep, [place] [address] 00926- 8938 Sep, Depression, unspecified depression type F32.9 ; Primary insomnia F51.01 ; Irritable bowel syndrome with diarrhea K58.0 ; Encounter to establish care Z76.89 and Increased urinary frequency R35.0 [facility] [address] 56018 -9001 Sep, Acute suppurative otitis media of right ear without spontaneous rupture of tympanic membrane, recurrence not specified H66.001 and Acute non-recurrent maxillary sinusitis J01.00 [facility] [address] 28000 -7782 Sep, Cough R05 [facility] [address] [id number] Aug, Encounter for immunization Z23 [place] [address] [id number] [place] [address] 12638- 1441 Aug, [facility] [address] 85123 -0328 Aug, Kyphosis of cervical region, unspecified kyphosis type M40.202 [facility] [address] [place] [id number] [place] [address] [id number] Jul, Low back pain M54.5 and Depression, unspecified depression type F32.9 [facility] OLVERA Juancarlos0 [facility] [id number] [phone] Jun, Strep throat J02.0 [facility] [place] [address] [facility] [id number] [phone] Jun, Dental examination Z01.[address] [place] [address] [phone] May, [place] [id number] [place] [address] [id number] Apr, [place] [id number] [place] [address] [id number] March, Depression, unspecified depression type F32.[address] [place] [address] [phone] Feb, Routine lab draw Z00.00 ; Obesity E66.9 and Swelling of ankle M25.473 [place] [id number] [place] [address] [phone] Jan, GE (gastroenteritis) K52.[address] [place] [address] [phone] Nov, Sinusitis J32.9 ; Allergic rhinitis J30.9 and Otitis externa, left H60.[address] [place] [address] [phone] Sep, Cough R05 IMMUNIZATIONS No Known Immunizations SOCIAL HISTORY Never Assessed REASON FOR VISIT Lab (walk-in) PLAN OF CARE VITAL SIGNS MEDICATIONS Unknown Medications RESULTS Name Result Date Reference Range LH 2017-08-15 LH 4.5 TSH 2017-08-15 TSH 1.310 0.450-4.500 FSH, SERUM 2017-08-15 FSH 8.6 CBC 2017-08-15 WBC 4.7 3.4-10.8 RBC 4.62 3.77-5.28 Hemoglobin 13.0 11.1-15.9 Hematocrit 39.2 34.0-46.6 MCV 85 79-97 MCH 28.1 26.6-33.0 MCHC 33.2 31.5-35.7 RDW 13.7 12.3-15.4 Platelets 275 150-379 Neutrophils 59 Not Estab. Lymphs 33 Not Estab. Monocytes 6 Not Estab. Eos 2 Not Estab. Basos 0 Not Estab. Neutrophils (Absolute) 2.7 1.4-7.0 Lymphs (Absolute) 1.6 0.7-3.1 Monocytes(Absolute) 0.3 0.1-0.9 Eos (Absolute) 0.1 0.0-0.4 Baso (Absolute) 0.0 0.0-0.2 Immature Granulocytes 0 Not Estab. Immature Grans (Abs) 0.0 0.0-0.1 LIPID PANEL 2017-08-15 Cholesterol, Total 228 100-199 Triglycerides 96 0-149 HDL Cholesterol 52 >39 VLDL Cholesterol Ray 19 5-40 LDL Cholesterol Calc 157 0-99 Comment: CMP 2017-08-15 Glucose, Serum 111 65-99 BUN 12 6-24 Creatinine, Serum 0.51 0.57-1.00 eGFR If NonAfricn Am 119 >59 eGFR If Africn Am 137 >59 BUN/Creatinine Ratio 24 9-23 Sodium, Serum 140 134-144 Potassium, Serum 4.3 3.5-5.2 Chloride, Serum 101 96-106 Carbon Dioxide, Total 23 18-29 Calcium, Serum 9.1 8.7-10.2 Protein, Total, Serum 6.5 6.0-8.5 Albumin, Serum 4.1 3.5-5.5 Globulin, Total 2.4 1.5-4.5 A/G Ratio 1.7 1.2-2.2 Bilirubin, Total 0.3 0.0-1.2 Alkaline Phosphatase, S 70 39-117 AST (SGOT) 24 0-40 ALT (SGPT) 25 0-32 PROCEDURES Procedure Date Ordered Result Body Site GONADOTROPIN (LH) Aug 15, 2017 ASSAY THYROID STIM HORMONE Aug 15, 2017 VENIPUNCT, ROUTINE* Aug 15, 2017 COMPREHEN METABOLIC PANEL Aug 15, 2017 COMPLETE CBC W/AUTO DIFF WBC Aug 15, 2017 GONADOTROPIN (FSH) Aug 15, 2017 LIPID PANEL Aug 15, 2017 INSTRUCTIONS MEDICATIONS ADMINISTERED No Known Medications [...]
--- OUTSIDE RECORDS SUMMARY | 2018-05-31 09:52 | XMS REPORT ---
Author Author CAITLYN MEJIAS Organization [facility] Address [address] [place] [address] Care Team Providers Care Professor Of Journalism Name Role Phone CAITLYN MEJIAS Unavailable PROBLEMS Type Condition ICD9-CM Code CDH51-CI Code Onset Dates Condition Status SNOMED Code Problem Irritable bowel syndrome with diarrhea K58.0 Active 716130503 Problem Migraine without aura and with status migrainosus, not intractable G43.001 Active 42015250 Problem Primary insomnia F51.01 Active 8792831 Problem Depression, unspecified depression type F32.9 Active 92437902 Problem Low back pain M54.5 Active 367197794 Problem Observed sleep apnea G47.30 Active 38298028 Problem Other chronic pain G89.29 Active 15359099 Problem Dental caries K02.9 Active 73785579 Problem Pain of left heel M79.672 Active 3909161684603436 Problem Mood disorder F39 Active 89964703 Problem Morbid obesity due to excess calories E66.01 Active 669312890 ALLERGIES No Information ENCOUNTERS Encounter Location Date Diagnosis [facility] [id number] [place] [address]99 -2424 Apr, Acute non-recurrent maxillary sinusitis J01.00 [facility] [id number] [place] [address] 77606- 6668 Apr, [facility] [id number] [place] [address] 96376- 8311 Apr, Primary insomnia F51.01 [facility] [address] [address] 05 Apr, 2018 Sore throat J02.9 ; Seasonal allergic rhinitis, unspecified trigger J30.2 and BMI 40.0-44.9, adult Z68.41 [facility] [id number] [place] [address] 36172- 0828 Apr, Low back pain M54.5 [facility] [id number] [place] [address] 74480- 5504 Apr, Pain, dental K08.89 [facility] [id number] [place] [address] [id number] March, Dental caries K02.9 [facility] [address] 42177- 0665 March, [facility] [id number] [place] [address] 98709- 2418 March, [facility] [id number] [place] [address] 95999- 2377 March, [facility] [id number] [place] [address] 22114- 2098 March, Low back pain M54.5 and Primary insomnia F51.01 [facility] [id number] [place] [address] [id number] March, Dental examination Z01.20 [facility] [id number] [place] [address] 81420- 0339 Feb, [facility] [id number] [place] [address] 96864- 8872 Feb, Low back pain M54.5 [facility] [id number] [place] [address] [phone] Feb, Dental examination Z01.20 [facility] [id number] [place] [address] 03056- 8129 Feb, Primary insomnia F51.01 [facility] [id number] [place] [address] 63847- 3502 Jan, BMI 40.0-44.9, adult Z68.41 and Observed sleep apnea G47.30 [facility] [id number] [place] [address] 77751- 7886 Jan, Dental examination Z01.20 [facility] [address] 99315- 3487 Jan, Dental examination Z01.20 [place] [address] 47687- 8024 Jan, Low back pain M54.5 [place] [address] 83048- 6427 09 Jan, 2018 Acute laryngopharyngitis J06.0 and BMI 40.0-44.9, adult Z68.41 [facility] [place] [address] 57269 -5865 08 Jan, 2018 Seasonal allergic rhinitis, unspecified trigger J30.2 and BMI 40.0-44.9, adult Z68.41 [facility] [place] [address] 98064 [address]1008 Jan, Viral URI J06.9 ; Seasonal allergic rhinitis, unspecified trigger J30.2 and BMI 40.0-44.9, adult Z68.41 [place] [address] 73117- 9397 Jan, [place] [address] 41253- 9267 Jan, Primary insomnia F51.01 and Cough R05 [facility] [place] [address] 89457 -9503 Jan, Viral URI J06.9 [place] [address] 97837- 4999 Jan, Sacral pain M53.3 [facility] WALK IN [address] [address]3780 Jan, Nasal congestion R09.81 and BMI 40.0-44.9, adult Z68.41 [place] [address] 62127- 6971 Dec, [place] [address] [place] [address] 87394- 3441 Dec, Low back pain M54.5 [place] [id number] [place] [address] 89144- 0486 Dec, Primary insomnia F51.01 [place] [id number] [place] [address] 05347- 5024 Nov, [place] [address] 84371- 4145 Nov, Migraine without aura and with status migrainosus, not intractable G43.001 ; Low back pain M54.5 and Primary insomnia F51.01 [place] [id number] [place] [address] 20581- 7080 Nov, Routine gynecological examination Z01.419 ; Routine screening for STI (sexually transmitted infection) Z11.3 and HPV in female B97.7 [place] [id number] [place] [address] 19058- 1769 Oct, Low back pain M54.5 ; Other chronic pain G89.29 ; Pain in right hip M25.551 ; Pain in left hip M25.552 ; Pain in right knee M25.561 and Pain in left knee M25.562 [place] [id number] [place] [address] 45546- 3673 Oct, Primary insomnia F51.01 [place] [id number] [place] [address] 90532- 6078 Oct, Low back pain M54.5 [place] [address] 21069- 1008 Sep, Encounter for immunization Z23 [place] [id number] [place] [address] 32163- 8837 Aug, Low back pain M54.5 and Primary insomnia F51.01 [place] [address] [id number] [place] [address] 26390- 0138 Aug, Low back pain M54.5 and Primary insomnia F51.01 [facility] IN [facility] [id number] [place] [address] 93170 -7463 05 Aug, 2017 Gastroenteritis and colitis, viral A08.4 [place] [id number] [place] [address] 11007- 4750 Aug, [place] [address] 69362- 7553 Aug, Hot flashes R23.2 ; Morbid obesity due to excess calories E66.01 and Mood disorder F39 [place] [address] 75517- 7594 02 Aug, 2017 Hot flashes R23.2 ; Morbid obesity due to excess calories E66.01 and Mood disorder F39 [place] [id number] [place] [address] 31167- 6480 07 Jul, 2017 Low back pain M54.5 [facility] [id number] [place] [address] 23302 -1377 06 Jul, 2017 Lipoma of right lower extremity D17.23 and Acute left- sided thoracic back pain M54.6 [place] [id number] [place] [address] 23164- 3319 Jun, Low back pain M54.5 [place] [id number] [place] [address] 42817- 1085 May, Low back pain M54.5 [place] [id number] [place] [address] 69992- 5595 Apr, Right upper quadrant pain R10.11 ; Depression, unspecified depression type F32.9 ; Low back pain M54.5 ; Primary insomnia F51.01 ; Irritable bowel syndrome with diarrhea K58.0 ; Migraine without aura and with status migrainosus, not intractable G43.001 and Breast cancer screening Z12.39 [place] [id number] [place] [address] 98897- 1941 Apr, [place] [address] 67810- 7412 Apr, Migraine without aura and with status migrainosus, not intractable G43.001 [place] [id number] [place] [address] 49843- 6193 March, [place] [address] 03581- 3433 Feb, [place] [id number] [place] [address] 10549- 5558 Feb, [facility] [place] [address] 86885 -6696 Feb, Sore throat J02.9 and Acute upper respiratory infection, unspecified J06.9 [place] [id number] [place] [address] 05394- 8900 Feb, Dental examination Z01.20 and Supereruption K00.6 [facility] [place] [address] 24349 -0415 Feb, Needlestick injury accident W27.3XXA and Employee exposure to blood Z57.8 [place] [id number] [place] [address] 03779- 7788 Feb, Dental examination Z01.20 [place] [id number] [place] [address] 01854- 7314 Dec, Low back pain M54.5 [place] [id number] [place] [address] 90989- 9817 Dec, Acute upper respiratory infection, unspecified J06.9 and Other viral agents as the cause of diseases classified elsewhere B97.89 [facility] [address] [place] [address] [id number] Dec, Dental examination Z01.20 [facility] [place] [address] [place] [address] 38089 -4650 16 Dec, 2016 Gastroenteritis K52.9 [place] [id number] [place] [address] 66601- 9599 10 Dec, 2016 Plantar fasciitis of left foot M72.2 [place] [id number] [place] [address] 76918- 4822 01 Dec, 2016 Low back pain M54.5 [place] [id number] [place] [address] 70678- 5914 Nov, Depression, unspecified depression type F32.9 ; Low back pain M54.5 ; Primary insomnia F51.01 ; Irritable bowel syndrome with diarrhea K58.0 ; Pain of left heel M79.672 and Migraine without aura and with status migrainosus, not intractable G43.001 [place] [id number] [place] [address] 17505- 4555 Nov, Acute pain of right knee M25.561 and Primary insomnia F51.01 [place] [id number] [place] [address] 48296- 0439 Oct, [place] [id number] [place] [address] 46453- 5248 Oct, Urinary pain R30.9 [facility] [address] [place] [address] 77671 -6320 Oct, Acute recurrent maxillary sinusitis J01.01 [place] [id number] [place] [address] 27033- 9928 Sep, Acute pain of right knee M25.561 [place] [id number] [place] [address] 26189- 1988 Sep, [place] [id number] [place] [address] 86685- 6566 Sep, Arthralgia, unspecified joint M25.50 [place] [id number] [place] [address] 23692- 5703 22 Sep, 2016 Hives L50.9 and Arthralgia, unspecified joint M25.[address] 73178- 4624 Sep, [address] 20258- 5115 Sep, Depression, unspecified depression type F32.9 ; Primary insomnia F51.01 ; Irritable bowel syndrome with diarrhea K58.0 ; Encounter to establish care Z76.89 and Increased urinary frequency R35.0 [facility] [address] [place] [address] 98837 -8298 05 Sep, 2016 Acute suppurative otitis media of right ear without spontaneous rupture of tympanic membrane, recurrence not specified H66.001 and Acute non-recurrent maxillary sinusitis J01.00 [facility] [address] [place] [address] 18785 -1696 Sep, Cough R05 [facility] [address] [id number] Aug, Encounter for immunization Z23 [address] 38863- 6395 Aug, [facility] [address] [place] [address] 71240 -9023 Aug, Kyphosis of cervical region, unspecified kyphosis type M40.202 [facility] [id number] [place] [address] [id number] Jul, Low back pain M54.5 and Depression, unspecified depression type F32.9 [facility] [id number] [place] [address] [id number] Jun, Strep throat J02.0 [facility] [id number] [place] [address] [id number] Jun, Dental examination Z01.20 [facility] [id number] [place] [address] [id number] May, [address] [id number] [id number] Apr, [address] [id number] March, Depression, unspecified depression type F32.9 [place] [id number] [id number] Feb, Routine lab draw Z00.00 ; Obesity E66.9 and Swelling of ankle M25.473 [address] [place] [address] [id number] Jan, GE (gastroenteritis) K52.9 [place] [id number] [place] [address] [id number] Nov, Sinusitis J32.9 ; Allergic rhinitis J30.9 and Otitis externa, left H60.92 [address] [id number] Sep, Cough R05 IMMUNIZATIONS No Known Immunizations SOCIAL HISTORY Never Assessed REASON FOR VISIT Controlled Med Refill PLAN OF CARE VITAL SIGNS MEDICATIONS Medication Instructions Dosage Frequency Start Date End Date Duration Status Ambien 10 mg Orally Once a day 1 tablet at bedtime as needed 24h Nov, 28 days Active Fysnqrlqft-ULMD-Lqqgvmnt 50-325-40 MG Orally every 4 hrs 2 at onset then one every four max 6 daily 4h Sep, Active Hydrocodone-Acetaminophen 7.5-325 MG Orally 3 times a day 1 tablet as needed 8h Nov, 28 days Active RESULTS No Results [...]
--- OUTSIDE RECORDS SUMMARY | 2018-05-31 09:52 | XMS REPORT ---
Author Author ANDREE ROQUE Organization [facility] Address [address] [place] [address] Care Team Providers Care Meter Repairer Name Role Phone ANDREE ROQUE Unavailable PROBLEMS Type Condition ICD9-CM Code [id number] Code Onset Dates Condition Status SNOMED Code Problem Depression, unspecified depression type F32.9 Active 04016334 Problem Dental caries K02.9 Active 66052636 Problem Pain of left heel M79.672 Active 8444394075032480 Problem Irritable bowel syndrome with diarrhea K58.0 Active 408472003 Problem Low back pain M54.5 Active 143193835 Problem Migraine without aura and with status migrainosus, not intractable G43.001 Active 18025410 Problem Primary insomnia F51.01 Active 7057530 ALLERGIES Substance Reaction Event Type Date Status Ciprofloxacin hives Drug Allergy Dec, Active SOCIAL HISTORY Never Assessed PLAN OF CARE Activity Details Follow Up prn Reason:TAL VITAL SIGNS Height 69 in 2017-01-05 Heart Rate 85 bpm 2017-01-05 Blood pressure systolic 125 mmHg 2017-01-05 Blood pressure diastolic 78 mmHg 2017-01-05 MEDICATIONS Medication Instructions Dosage Frequency Start Date End Date Duration Status Duloxetine HCl 30 MG TAKE ONE CAPSULE BY MOUTH TWICE DAILY 30 Active Cymbalta 30 MG Orally Twice a day 1 capsule 12h March, Active Ulkxcoozpe-LUUO-Ekweymnn 50-325-40 MG Orally every 4 hrs 2 at onset then one every four max 6 daily 4h Sep, Active Bentyl 10 mg Orally 4 times a day 1 tablet 6h Sep, Active Hydrocodone-Acetaminophen 7.5-325 MG Orally 3 times a day 1 tablet as needed 8h Dec, Active Ambien 10 mg Orally Once a day 1 tablet at bedtime as needed 24h Nov, Active RESULTS No Results PROCEDURES Procedure Date Ordered Result Body Site PROPHYLAXIS - ADULT Jan 05, 2017 TOPICAL FLUORIDE VARNISH Jan 05, 2017 [facility] Employee/Board adjustment Jan 05, 2017 Billing Notes on claim Jan 05, 2017 IMMUNIZATIONS No Known Immunizations MEDICAL (GENERAL) HISTORY [...]
--- OUTSIDE RECORDS SUMMARY | 2018-05-31 09:53 | XMS REPORT ---
Author Author IDALIA VAUGHAN Organization [employer] Address Unknown Phone Unavailable Care Team Providers Care Ice Cream Maker Name Role Phone IDALIA VAUGHAN CP Unavailable Allergies No Known Allergies Problems Problem Type Condition Code Onset Dates Condition Status Assessment Obesity E66.9 Active Assessment Swelling of ankle M25.473 Active Assessment Routine lab draw Z00.00 Active Medications No Known Medications Procedures Procedure Coding System Code Date COMPREHEN METABOLIC PANEL CPT-4 41886 March 11, 2016 COMPLETE CBC W/AUTO DIFF WBC CPT-4 92684 March 11, 2016 ASSAY THYROID STIM HORMONE CPT-4 84252 March 11, 2016 VENIPUNCT, ROUTINE* CPT-4 65943 March 11, 2016 LIPID PANEL CPT-4 41304 March 11, 2016 Results No Known Results Summary Purpose [employer] Submission
--- OUTSIDE RECORDS SUMMARY | 2018-05-31 09:53 | XMS REPORT ---
Author Author CAITLYN MEJIAS Organization [facility] [place] Address [address] [place] [address] Care Team Providers Care Stonecutter Apprentice Hand Name Role Phone CAITLYN MEJIAS Unavailable PROBLEMS Type Condition ICD9-CM Code MUF31-XG Code Onset Dates Condition Status SNOMED Code Problem Irritable bowel syndrome with diarrhea K58.0 Active 338567185 Problem Migraine without aura and with status migrainosus, not intractable G43.001 Active 98633394 Problem Primary insomnia F51.01 Active 6683548 Problem Depression, unspecified depression type F32.9 Active 00377144 Problem Low back pain M54.5 Active 735725271 Problem Observed sleep apnea G47.30 Active 81642555 Problem Other chronic pain G89.29 Active 08686296 Problem Dental caries K02.9 Active 74744680 Problem Pain of left heel M79.672 Active [id number] Problem Mood disorder F39 Active 92695024 Problem Morbid obesity due to excess calories E66.01 Active 326433245 ALLERGIES No Information ENCOUNTERS Encounter Location Date Diagnosis [facility] [id number] [place] [address] [id number] March, [facility] [address] [place] [id number] [place] [address] [id number] March, [facility] [place] [id number] [place] [address] 26187- 7602 Feb, Low back pain M54.5 [facility] [id number] [place] [address] [id number] Feb, Dental examination Z01.20 [facility] [place] [address] [place] [id number] [place] [address] 15110- 8121 Feb, Primary insomnia F51.01 [facility] [place] [address] [place] [id number] [place] [address] 90522- 9190 Jan, BMI 40.0-44.9, adult Z68.41 and Observed sleep apnea G47.30 [place] [address] 47[address]- 7214 Jan, Dental examination Z01.20 [place] [address] 26094- 9661 20 Jan, 2018 Dental examination Z01.20 [place] [address] 96549- 0874 12 Jan, 2018 Low back pain M54.5 [place] [address] 87637- 7960 09 Jan, 2018 Acute laryngopharyngitis J06.0 and BMI 40.0-44.9, adult Z68.41 [facility] [place] [address] 19[address]8406 08 Jan, 2018 Seasonal allergic rhinitis, unspecified trigger J30.2 and BMI 40.0-44.9, adult Z68.41 [facility] [place] [address] [address]27 -4933 Jan, Viral URI J06.9 ; Seasonal allergic rhinitis, unspecified trigger J30.2 and BMI 40.0-44.9, adult Z68.41 [place] [address] 62982- 8726 Jan, [place] [address] 06561- 9269 Jan, Primary insomnia F51.01 and Cough R05 [facility] [address] [address]695 Jan, Viral URI J06.9 [place] [address] 94289- 3460 Jan, Sacral pain M53.3 [facility] [address] 9[address] -0827 Jan, Nasal congestion R09.81 and BMI 40.0-44.9, adult Z68.41 [place] [address] 16197- 4582 Dec, [place] [address] 76414- 9793 Dec, Low back pain M54.5 [place] [address] 88447- 9784 Dec, Primary insomnia F51.01 [place] [address] 15855- 5571 Nov, [place] [address] 21435- 6897 Nov, Migraine without aura and with status migrainosus, not intractable G43.001 ; Low back pain M54.5 and Primary insomnia F51.01 [place] [address] [place] [id number] [place] [address] 30356- 9113 Nov, Routine gynecological examination Z01.419 ; Routine screening for STI (sexually transmitted infection) Z11.3 and HPV in female B97.7 [place] [address] [place] [id number] [place] [address] 81825- 2994 Oct, Low back pain M54.5 ; Other chronic pain G89.29 ; Pain in right hip M25.551 ; Pain in left hip M25.552 ; Pain in right knee M25.561 and Pain in left knee M25.562 [place] [address] [place] [id number] [place] [address] 97860- 5775 Oct, Primary insomnia F51.01 [place] [address] 81021- 5559 Oct, Low back pain M54.5 [place] [address] [place] [id number] [place] [address] 28047- 7727 Sep, Encounter for immunization Z23 [place] [id number] [address] 19 Aug, 2017 Low back pain M54.5 and Primary insomnia F51.01 [place] [address] [place] [id number] [place] [address] 21467- 8713 10 Aug, 2017 Low back pain M54.5 and Primary insomnia F51.01 [facility] [address] [place] [address] [id number] [place] [address] 41614 -9250 05 Aug, 2017 Gastroenteritis and colitis, viral A08.4 [place] [address] [place] [id number] [place] [address] 44067- 0211 Aug, [place] [address] [place] [id number] [place] [address] 99050- 1067 03 Aug, 2017 Hot flashes R23.2 ; Morbid obesity due to excess calories E66.01 and Mood disorder F39 [place] [address] [place] [id number] [place] [address] 47148- 9822 02 Aug, 2017 Hot flashes R23.2 ; Morbid obesity due to excess calories E66.01 and Mood disorder F39 [place] [address] [place] [id number] [place] [address] 91589- 4010 07 Jul, 2017 Low back pain M54.5 [facility] [address] [place] [address] 10789 -5270 06 Jul, 2017 Lipoma of right lower extremity D17.23 and Acute left- sided thoracic back pain M54.6 [place] [address] [place] [address] 46257- 9152 Jun, Low back pain M54.5 [place] [address] [place] [id number] [place] [address] 14224- 0321 May, Low back pain M54.5 [place] [address] [place] [id number] [place] [address] 91569- 9435 Apr, Right upper quadrant pain R10.11 ; Depression, unspecified depression type F32.9 ; Low back pain M54.5 ; Primary insomnia F51.01 ; Irritable bowel syndrome with diarrhea K58.0 ; Migraine without aura and with status migrainosus, not intractable G43.001 and Breast cancer screening Z12.39 [place] [address] [place] [id number] [place] [address] 90287- 2563 Apr, [place] [address] 51228- 1436 Apr, Migraine without aura and with status migrainosus, not intractable G43.001 [place] [address] 78315- 2189 March, [place] [address] 23164- 2694 Feb, [place] [address] 93955- 9848 Feb, [facility] [place] [address] 64564 -0457 Feb, Sore throat J02.9 and Acute upper respiratory infection, unspecified J06.9 [place] [address] 86375- 2439 Feb, Dental examination Z01.20 and Supereruption K00.6 [facility] [place] [address] [place] [id number] [place] [address] 52230 -4840 Feb, Needlestick injury accident W27.3XXA and Employee exposure to blood Z57.8 [place] [address] [place] [id number] [place] [address] 86511- 2738 Feb, Dental examination Z01.20 [place] [address] 44394- 5989 28 Dec, 2016 Low back pain M54.5 [place] [address] 58450- 5307 27 Dec, 2016 Acute upper respiratory infection, unspecified J06.9 and Other viral agents as the cause of diseases classified elsewhere B97.89 [facility] [address] [place] [address] [id number] [phone] Dec, 2016 Dental examination Z01.20 [facility] [address] [place] [id number] [place] [address] 50720 -0754 16 Dec, 2016 Gastroenteritis K52.9 [place] [address] 45823- 0622 10 Dec, 2016 Plantar fasciitis of left foot M72.2 [place] [address] 22854- 6994 Dec, Low back pain M54.5 [place] [address] [place] [id number] [place] [address] 35901- 4423 Nov, Depression, unspecified depression type F32.9 ; Low back pain M54.5 ; Primary insomnia F51.01 ; Irritable bowel syndrome with diarrhea K58.0 ; Pain of left heel M79.672 and Migraine without aura and with status migrainosus, not intractable G43.001 [place] [address] [place] [id number] [place] [address] 08966- 7472 Nov, Acute pain of right knee M25.561 and Primary insomnia F51.01 [place] [address] [place] [id number] [place] [address] 51417- 6178 Oct, [place] [address] [place] [id number] [place] [address] 75698- 5412 Oct, Urinary pain R30.9 [facility] [address] [place] [address] 20998 -9662 Oct, Acute recurrent maxillary sinusitis J01.01 [place] [address] [place] [id number] [place] [address] 39931- 7963 Sep, Acute pain of right knee M25.561 [place] [address] 17006- 4722 Sep, [place] [address] [place] [id number] [place] [address] 01353- 5262 Sep, Arthralgia, unspecified joint M25.50 [place] [address] [place] [id number] [place] [address] 40879- 9787 Sep, Hives L50.9 and Arthralgia, unspecified joint M25.50 [place] [address] 11704- 0657 Sep, [place] [id number] [place] [address] 43926- 4394 Sep, Depression, unspecified depression type F32.9 ; Primary insomnia F51.01 ; Irritable bowel syndrome with diarrhea K58.0 ; Encounter to establish care Z76.89 and Increased urinary frequency R35.0 [facility] [address] [place] [id number] [place] [address] 68620 -2213 Sep, Acute suppurative otitis media of right ear without spontaneous rupture of tympanic membrane, recurrence not specified H66.001 and Acute non-recurrent maxillary sinusitis J01.00 [facility] [address] [place], [place] [id number] [place] [address] 78271 -0981 Sep, Cough R05 [facility] [id number] [place] [address] [id number] Aug, Encounter for immunization Z23 [place] [id number] [place] [address] 58354- 8695 Aug, [facility] [address] [place] [id number] [place] [address] 94436 -6007 Aug, Kyphosis of cervical region, unspecified kyphosis type M40.202 [facility] [id number] [place] [address] [id number] Jul, Low back pain M54.5 and Depression, unspecified depression type F32.[address] [facility] [address] [id number] [phone] Jun, Strep throat J02.0 [facility] [id number] [place] [phone] Jun, Dental examination Z01.20 [id number] [place] [address] [id number] May, [address] [phone] Apr, [id number] [place] [address] [id number] March, Depression, unspecified depression type F32.9 [address] [place] [address] [id number] Feb, Routine lab draw Z00.00 ; Obesity E66.9 and Swelling of ankle M25.[address] [place] [address] [id number] Jan, GE (gastroenteritis) K52.9 [place] [id number] [place] [address] [id number] Nov, Sinusitis J32.9 ; Allergic rhinitis J30.9 and Otitis externa, left H60.[address] [place] [address] [id number] Sep, Cough R05 IMMUNIZATIONS No Known Immunizations SOCIAL HISTORY Never Assessed REASON FOR VISIT "knot" feeling right hip for a couple months- another "knot" left shoulder strarted yesterday. They are painful to lay on- pt is concerned about bone cancer JStrasserRN PLAN OF CARE VITAL SIGNS MEDICATIONS Unknown [...]
--- OUTSIDE RECORDS SUMMARY | 2018-05-31 09:53 | XMS REPORT ---
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 Name Role Phone CAITLYN MEJIAS Unavailable PROBLEMS Type Condition ICD9-CM Code XVX01-GQ Code Onset Dates Condition Status SNOMED Code Problem Irritable bowel syndrome with diarrhea K58.0 Active 519563508 Problem Migraine without aura and with status migrainosus, not intractable G43.001 Active 18132874 Problem Primary insomnia F51.01 Active 7226702 Problem Depression, unspecified depression type F32.9 Active 24272599 Problem Low back pain M54.5 Active 632624845 Problem Observed sleep apnea G47.30 Active 68742665 Problem Other chronic pain G89.29 Active 00917925 Problem Dental caries K02.9 Active 10210990 Problem Pain of left heel M79.672 Active 7158545912860292 Problem Mood disorder F39 Active 20598310 Problem Morbid obesity due to excess calories E66.01 Active 708198904 ALLERGIES Substance Reaction Event Type Date Status Ciprofloxacin hives Drug Allergy Aug, Active ENCOUNTERS Encounter Location Date Diagnosis [facility] [address] [id number] March, [facility] [id number] [place] [id number] March, Dental examination Z01.20 [facility] [address] [id number] Feb, [facility] [id number] [place] [address] [phone]- 3741 Feb, Low back pain M54.5 [facility] [address] [id number] Feb, Dental examination Z01.20 [facility] [id number] [place] [address]10- 2513 Feb, Primary insomnia F51.01 [place] [address] [address] Jan, BMI 40.0-44.9, adult Z68.41 and Observed sleep apnea G47.30 [place] [address] [address]- [address]17 Jan, Dental examination Z01.20 [place] [address] [address]86- [address]208 20 Jan, 2018 Dental examination Z01.20 [place] [address] [address]- [address]279 12 Jan, 2018 Low back pain M54.5 [place] [address] [address]- [address]92 09 Jan, 2018 Acute laryngopharyngitis J06.0 and BMI 40.0-44.9, adult Z68.41 [facility] [address] [address] 08 Jan, 2018 Seasonal allergic rhinitis, unspecified trigger J30.2 and BMI 40.0-44.9, adult Z68.41 [facility] [id number] [place] [address]53 [address] 07 Jan, 2018 Viral URI J06.9 ; Seasonal allergic rhinitis, unspecified trigger J30.2 and BMI 40.0-44.9, adult Z68.41 [place] [id number] [place] [address] 90762- 3040 Jan, [place] [address] [address]671 05 Jan, 2018 Primary insomnia F51.01 and Cough R05 [facility] [id number] [place] [address]62 -2090 Jan, Viral URI J06.9 [place] [id number] [place] [address] 81067- 4216 Jan, Sacral pain M53.3 [facility] [id number] [place] [address] 85620 -6763 Jan, Nasal congestion R09.81 and BMI 40.0-44.9, adult Z68.41 [place] [id number] [place] [address] 35272- 0913 Dec, [place] [address] 85407- [address]081 Dec, Low back pain M54.5 [place] [address] 04054- 4166 Dec, Primary insomnia F51.01 [place] [id number] [place] [address] 33221- 5832 Nov, [place] [address] [address]19- [address]603 Nov, Migraine without aura and with status migrainosus, not intractable G43.001 ; Low back pain M54.5 and Primary insomnia F51.01 [place] [id number] [place] [address] 18959- 9260 Nov, Routine gynecological examination Z01.419 ; Routine screening for STI (sexually transmitted infection) Z11.3 and HPV in female B97.7 [place] [id number] [place] [address] 26727- 7145 Oct, Low back pain M54.5 ; Other chronic pain G89.29 ; Pain in right hip M25.551 ; Pain in left hip M25.552 ; Pain in right knee M25.561 and Pain in left knee M25.562 [place] [id number] [place] [address] 46940- 4678 Oct, Primary insomnia F51.01 [place] [id number] [place] [address] 20572- 1696 Oct, Low back pain M54.5 [facility] [id number] [place] [address] 94552- 6031 Sep, Encounter for immunization Z23 [facility] [id number] [place] [address] 87275- 6375 19 Aug, 2017 Low back pain M54.5 and Primary insomnia F51.01 [facility] [address] 87862- 4902 10 Aug, 2017 Low back pain M54.5 and Primary insomnia F51.01 [facility] [id number] [place] [address] 89161 -7292 05 Aug, 2017 Gastroenteritis and colitis, viral A08.4 [facility] [id number] [place] [address] 77922- 7556 04 Aug, 2017 [facility] [id number] [place] [address] 74569- 9206 Aug, Hot flashes R23.2 ; Morbid obesity due to excess calories E66.01 and Mood disorder F39 [place] [id number] [place] [address] 58138- 9034 02 Aug, 2017 Hot flashes R23.2 ; Morbid obesity due to excess calories E66.01 and Mood disorder F39 [facility] [id number] [place] [address] 86354- 9443 07 Jul, 2017 Low back pain M54.5 [facility] [id number] [place] [address] 44815 -3350 06 Jul, 2017 Lipoma of right lower extremity D17.23 and Acute left- sided thoracic back pain M54.6 [facility] [id number] [place] [address] 90490- 3837 Jun, Low back pain M54.5 [facility] [id number] [place] [address] 51164- 9836 May, Low back pain M54.5 [place] [id number] [place] [address] 16796- 6695 Apr, Right upper quadrant pain R10.11 ; Depression, unspecified depression type F32.9 ; Low back pain M54.5 ; Primary insomnia F51.01 ; Irritable bowel syndrome with diarrhea K58.0 ; Migraine without aura and with status migrainosus, not intractable G43.001 and Breast cancer screening Z12.[address] [address]16- [address]111 Apr, [place] [address] 6[address]12- 0921 Apr, Migraine without aura and with status migrainosus, not intractable G43.001 [place] [id number] [place] [address] 61631- 7552 March, [address] 3[address]- 2276 Feb, [place] [id number] [place] [address] 10523- 8131 Feb, [facility] [address] [address] Feb, Sore throat J02.9 and Acute upper respiratory infection, unspecified J06.9 [place] [id number] [place] [address] 81038- 5632 Feb, Dental examination Z01.20 and Supereruption K00.6 [facility] [address] [place], [place] [id number] [place] [address] 09271 -4413 Feb, Needlestick injury accident W27.3XXA and Employee exposure to blood Z57.8 [place] [id number] [place] [address] 52346- 5436 Feb, Dental examination Z01.20 [place] [id number] [place] [address] 17741- 7513 Dec, Low back pain M54.5 [facility] [id number] [place] [address] 11012- 1343 Dec, Acute upper respiratory infection, unspecified J06.9 and Other viral agents as the cause of diseases classified elsewhere B97.89 [facility] [address] [place] [address] [phone] Dec, Dental examination Z01.20 [facility] [place] [address] 84[address] -[address]104 16 Dec, 2016 Gastroenteritis K52.9 [place] [address] 87015- 3096 Dec, Plantar fasciitis of left foot M72.2 [place] [id number] [place] [address] 66216- 3032 Dec, Low back pain M54.5 [place] [address] 54248- 2430 Nov, Depression, unspecified depression type F32.9 ; Low back pain M54.5 ; Primary insomnia F51.01 ; Irritable bowel syndrome with diarrhea K58.0 ; Pain of left heel M79.672 and Migraine without aura and with status migrainosus, not intractable G43.001 [place] [id number] [place] [address] 97726- 0357 Nov, Acute pain of right knee M25.561 and Primary insomnia F51.01 [place] [id number] [place] [address] 76969- 5922 Oct, [place] [address] 21773- 8615 Oct, Urinary pain R30.9 [facility] [id number] [place] [address] 68597 -2393 Oct, Acute recurrent maxillary sinusitis J01.01 [place] [address] 21330- 5949 Sep, Acute pain of right knee M25.561 [place] [id number] [place] [address] 56449- 6714 Sep, [place] [address] 74124- 2045 Sep, Arthralgia, unspecified joint M25.50 [place] [address] 18441- 0799 Sep, Hives L50.9 and Arthralgia, unspecified joint M25.50 [place] [id number] [place] [address] 57722- 6021 Sep, [place] [id number] [place] [address] 75637- 2514 Sep, Depression, unspecified depression type F32.9 ; Primary insomnia F51.01 ; Irritable bowel syndrome with diarrhea K58.0 ; Encounter to establish care Z76.89 and Increased urinary frequency R35.0 [facility] [id number] [place] [address] 28364 -0763 Sep, Acute suppurative otitis media of right ear without spontaneous rupture of tympanic membrane, recurrence not specified H66.001 and Acute non-recurrent maxillary sinusitis J01.00 [facility] [id number] [place] [address] 84170 -1420 Sep, Cough R05 [facility] [id number] [place] [phone] Aug, Encounter for immunization Z23 [place] [address] [place] [address] 46797- 1632 Aug, [facility] [id number] [place] [address] 79186 -1769 Aug, Kyphosis of cervical region, unspecified kyphosis type M40.202 [facility] [id number] [place] [address] [phone] Jul, Low back pain M54.5 and Depression, unspecified depression type F32.9 [facility] [address] [id number] [phone] Jun, Strep throat J02.0 [facility] [address] [facility] [address] [id number] [phone] Jun, Dental examination Z01.20 [facility] [id number] [place] [address] [phone] May, [facility] [id number] [place] [address] [phone] Apr, [place] [id number] [place] [address] [phone] March, Depression, unspecified depression type F32.9 [facility] [address] [place] [address] [phone] Feb, Routine lab draw Z00.00 ; Obesity E66.9 and Swelling of ankle M25.473 [place] [id number] [place] [address] [phone] Jan, GE (gastroenteritis) K52.9 [place] [address] [place] [address] [phone] Nov, Sinusitis J32.9 ; Allergic rhinitis J30.9 and Otitis externa, left H60.[address] [place] [address] [phone] Sep, Cough R05 IMMUNIZATIONS No Known Immunizations SOCIAL HISTORY Never Assessed REASON FOR VISIT Transition of Care, possible thyroid issues--Willem Garcia MA PLAN OF CARE VITAL SIGNS Height 69 in 2017-08-14 Weight 286.0 lbs 2017-08-14 Temperature 98.4 degrees Fahrenheit 2017-08-14 Heart Rate 86 bpm 2017-08-14 Respiratory Rate 20 2017-08-14 BMI 42.23 kg/m2 2017-08-14 Blood pressure systolic 128 mmHg 2017-08-14 Blood pressure diastolic 92 mmHg 2017-08-14 MEDICATIONS Medication Instructions Dosage Frequency Start Date End Date Duration Status Ambien 10 mg Orally Once a day 1 tablet at bedtime as needed 24h Nov, Active Ieizkvxkqb-WANN-Dkncoliz 50-325-40 MG Orally every 4 hrs 2 at onset then one every four max 6 daily 4h 25 Sep, 2016 Active Protonix 40 mg Orally Once a day 1 tablet 24h Aug, 30 day(s) Active Bentyl 10 mg Orally 4 times a day 1 tablet 6h Sep, Active Hydrocodone-Acetaminophen 7.5-325 MG Orally 3 times a day 1 tablet as needed 8h 14 Jul, 2017 28 days Active Cymbalta 60 mg Orally Once a day 1 capsule 24h Aug, 30 day(s) Active Cymbalta 30 MG Orally Once a day 1 capsule 24h March, Active RESULTS No Results PROCEDURES No [...]
[2018-05-31 10:14] LABS: BASOPHILS % (AUTO) 0 % (0-10); EOSINOPHILS # (AUTO) 0.1 10^3/uL (0.0-0.3); EOSINOPHILS % (AUTO) 2 % (0-10); HEMATOCRIT 40 % (35-52); HEMOGLOBIN 13.3 G/DL (11.5-16.0); LYMPHOCYTES # (AUTO) 1.9 X 10^3 (1.0-4.0); LYMPHOCYTES % (AUTO) 32 % (12-44); MEAN CORPUSCULAR HEMOGLOBIN 29 PG (25-34); MEAN CORPUSCULAR HGB CONC 33 G/DL (32-36); MEAN CORPUSCULAR VOLUME 86 FL (80-99); MONOCYTES # (AUTO) 0.5 X 10^3 (0.0-1.0); MONOCYTES % (AUTO) 8 % (0-12); NEUTROPHILS # (AUTO) 3.4 X 10^3 (1.8-7.8); NEUTROPHILS % (AUTO) 58 % (42-75); PLATELET COUNT 279 10^3/uL (130-400); RED BLOOD COUNT 4.66 10^6/uL (4.35-5.85); RED CELL DISTRIBUTION WIDTH 13.5 % (10.0-14.5); WHITE BLOOD COUNT 5.9 10^3/uL (4.3-11.0)
[2018-05-31 10:31] LABS: PROTHROMBIN TIME PATIENT 13.4 SEC (12.2-14.7)
[2018-05-31 10:38] LABS: ALANINE AMINOTRANSFERASE 29 U/L (0-55); ALBUMIN 3.9 GM/DL (3.2-4.5); ALKALINE PHOSPHATASE 60 U/L (40-136); BILIRUBIN,TOTAL 0.3 MG/DL (0.1-1.0); BUN/CREATININE RATIO 21; CARBON DIOXIDE 24 MMOL/L (21-32); CHLORIDE 106 MMOL/L (98-107); CREATININE SERUM 0.58 MG/DL (0.60-1.30); GFR ESTIMATED > 60; GLUCOSE 124 MG/DL (70-105); MAGNESIUM 2.1 MG/DL (1.8-2.4); POTASSIUM 3.9 MMOL/L (3.6-5.0); SODIUM 136 MMOL/L (135-145); TOTAL PROTEIN 6.8 GM/DL (6.4-8.2)
--- NOTE | 2018-05-31 10:40 | Diagnostic Imaging Report ---
INDICATION: Chest pain. TIME OF EXAM: 10:14 AM COMPARISON: No prior studies are available for comparison. FINDINGS: The heart size is normal. The pulmonary vascularity is unremarkable. The lungs are clear. No infiltrate, effusion or pneumothorax is detected. IMPRESSION: No acute cardiopulmonary process is detected. Dictated by: Dictated on workstation # [id number]
--- NOTE | 2018-05-31 11:38 | ED Chest Pain ---
General Chief Complaint: Chest Pain Stated Complaint: CP Nursing Triage Note: PATIENT HERE FROM [facility] AFTER CHEST PAIN THAT STARTED LAST NIGHT. TODAY IT IS A 4/10 PRESSURE IN HER CHEST. SHE STATES SHE WAS DIAGNOSED LAST WEEK WITH COSTOCHODRITIS. [facility] GAVE 4 BABY ASA AND 1 NTG THAT DID NOT AFFECT HER PAIN. Nursing Sepsis Screen: No Definite Risk Source: patient, other (clinic notes and verbal report) Exam Limitations: no limitations History of Present Illness Date Seen by Provider: May 31, 2018 Time Seen by Provider: 09:42 Initial Comments This 43-year-old woman presents to the emergency room by private vehicle as directed from the [facility] he was being assessed for chest pain. Patient reports developing left upper chest pain last night that was rather intense. Pain was also present in her chin. Pain has diminished now and she rates it as 4/10. It is described as a tightness. She received aspirin 324 mg chewed at [facility] along with nitroglycerin 2. Nitroglycerin did not improve her pain. She denies any history of coronary artery disease or other heart problems. She has not identified any alleviating or exacerbating factors. She has nausea and generalized weakness. Yesterday she also experienced shortness of air. She has had no prior cardiac workup. Risk factors include prior tobacco use (she quit 5 years ago) and obesity. Allergies and Home Medications Allergies Coded Allergies: ciprofloxacin (Verified Allergy, Unknown, HIVES, 06/19/17) Home Medications Benzonatate 100 Mg Capsule, 100 MG PO Q6H PRN for COUGH Prescribed by: CONCEPCION PACHECO on 01/20/18 0049 Duloxetine HCl 60 Mg Capsule., 60 MG PO HS, (Reported) Hydrocodone Bit/Acetaminophen 1 Each Tablet, 1 EACH PO TID PRN for PAIN-MILD TO MODERATE, (Reported) Pantoprazole Sodium 40 Mg Tablet.dr, 40 MG PO DAILY Take medication twice a day for 2 weeks and then once a day after that. Prescribed by: CELINA ISAACS on 06/20/17 1107 Sucralfate 1 Gm Tablet, 1 GM PO QID Prescribed by: CELINA ISAACS on 06/20/17 1107 Zolpidem Tartrate 5 Mg Tablet, 5 MG PO HS, (Reported) Patient Home Medication List Home Medication List Reviewed: Yes Review of Systems Constitutional: no symptoms reported EENTM: No Symptoms Reported Respiratory: See HPI Cardiovascular: See HPI Gastrointestinal: See HPI Genitourinary: No Symptoms Reported Musculoskeletal: no symptoms reported Skin: no symptoms reported Psychiatric/Neurological: No Symptoms Reported Endocrine: No Symptoms Reported Hematologic/Lymphatic: No Symptoms Reported Past Nyhopbq-Yvzanq-Scbpgp Hx Past Med/Social Hx: Reviewed and Corrections made Patient Social History Alcohol Use: Denies Use Recreational Drug Use: No Smoking Status: Former Smoker Former Smoker, Quit: Jun 19, 2014 2nd Hand Smoke Exposure: No Recent Foreign Travel: No Contact w/Someone Who Travel: No Recent Infectious Disease Expo: No Recent Hopitalizations: No Physical Abuse: No Sexual Abuse: No Seasonal Allergies Seasonal Allergies: No Past Medical History Surgeries: Yes Hysterectomy, 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 Respiratory: No Cardiac: No Neurological: No : No Reproductive Disorders: No 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, 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 0oz. 131.520642av; 41.4 BMI Method:Stated General Appearance: No Apparent Distress, WD/WN, Obese HEENT: PERRL/EOMI, Normal ENT Inspection Neck: Normal Inspection Respiratory: Chest Non Tender, Lungs Clear, Normal Breath Sounds, No Accessory Muscle Use, No Respiratory Distress Cardiovascular: Regular Rate, Rhythm, No Edema, No Murmur, Normal Peripheral Pulses Gastrointestinal: Normal Bowel Sounds, Non Tender, Soft Extremity: Normal Capillary Refill, Non Tender, No Calf Tenderness, No Pedal Edema, Other (negative Deidra) Neurologic/Psychiatric: Alert, Oriented x3, No Motor/Sensory Deficits, Normal Mood/Affect, 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 Norm as Tested Skin: Normal Color, Warm/Dry Progress/Results/Core Measures Results/Orders Lab Results Laboratory Tests Test 05/31/18 10:04 Range/Units White Blood Count 5.9 4.3-11.0 10^3/uL Red Blood Count 4.66 4.35-5.85 10^6/uL Hemoglobin 13.3 11.5-16.0 G/DL Hematocrit 40 35-52 % Mean Corpuscular Volume 86 80-99 FL Mean Corpuscular Hemoglobin 29 25-34 PG Mean Corpuscular Hemoglobin Concent 33 32-36 G/DL Red Cell Distribution Width 13.5 10.0-14.5 % Platelet Count 279 130-400 10^3/uL Mean Platelet Volume 10.0 7.4-10.4 FL Neutrophils (%) (Auto) 58 42-75 % Lymphocytes (%) (Auto) 32 12-44 % Monocytes (%) (Auto) 8 0-12 % Eosinophils (%) (Auto) 2 0-10 % Basophils (%) (Auto) 0 0-10 % Neutrophils # (Auto) 3.4 1.8-7.8 X 10^3 Lymphocytes # (Auto) 1.9 1.0-4.0 X 10^3 Monocytes # (Auto) 0.5 0.0-1.0 X 10^3 Eosinophils # (Auto) 0.1 0.0-0.3 10^3/uL Basophils # (Auto) 0.0 0.0-0.1 10^3/uL Prothrombin Time 13.4 12.2-14.7 SEC INR Comment 1.0 0.8-1.4 Activated Partial Thromboplast Time 25 24-35 SEC D-Dimer <= 0.27 0.00-0.49 UG/ML Sodium Level 136 135-145 MMOL/L Potassium Level 3.9 3.6-5.0 MMOL/L Chloride Level 106 98-107 MMOL/L Carbon Dioxide Level 24 21-32 MMOL/L Anion Gap 6 5-14 MMOL/L Blood Urea Nitrogen 12 7-18 MG/DL Creatinine 0.58 L 0.60-1.30 MG/DL Estimat Glomerular Filtration Rate > 60 BUN/Creatinine Ratio 21 Glucose Level 124 H 70-105 MG/DL Calcium Level 9.0 8.5-10.1 MG/DL Magnesium Level 2.1 1.8-2.4 MG/DL Total Bilirubin 0.3 0.1-1.0 MG/DL Aspartate Amino Transf (AST/SGOT) 21 5-34 U/L Alanine Aminotransferase (ALT/SGPT) 29 0-55 U/L Alkaline Phosphatase 60 40-136 U/L Myoglobin 16.0 10.0-92.0 NG/ML Troponin I < 0.30 <0.30 NG/ML Total Protein 6.8 6.4-8.2 GM/DL Albumin 3.9 3.2-4.5 GM/DL My Orders Orders - GARETT FLETCHER MD Cbc With Automated Diff (05/31/18 09:40) Magnesium (05/31/18 09:40) Chest 1 View, Ap/Pa Only (05/31/18 09:40) Ekg Tracing (05/31/18 09:40) Cardiac Profile 1 (05/31/18 09:40) Comprehensive Metabolic Panel (05/31/18 09:40) Myoglobin Serum (05/31/18 09:40) Protime With Inr (05/31/18 09:40) Partial Thromboplastin Time (05/31/18 09:40) O2 (05/31/18 09:40) Monitor-Rhythm Ecg Trace Only (05/31/18 09:40) Lipid Panel (06/01/18 06:00) Saline Lock/Iv-Start (05/31/18 09:40) Fibrin Degradation Products (05/31/18 11:02) Vital Signs/I&O 05/31/18 05/31/18 09:40 09:40 Temp 98.2 Pulse 92 Resp 18 B/P (MAP) 113/83 (93) Pulse Ox 95 97 O2 Delivery Room Air Blood Pressure Mean: 93 Progress Progress Note : Progress Note Cardiopulmonary workup was unremarkable. D-dimer was admitted for further evaluation. Patient's chest pain resolved without any further intervention. She was pain-free at the time of admission. Patient was offered admission for further rule out. Case was reviewed with Dr. Flynn to agreed with admission and plans to perform stress test. Initial ECG Impression Date: May 31, 2018 Initial ECG Impression Time: 09:44 Initial ECG Rate: 93 Initial ECG Rhythm: Normal Sinus Comment Normal sinus rhythm with no ST elevation or depression. Borderline left axis deviation and borderline tachycardia. No abnormal intervals. Diagnostic Imaging Diagonstic Imaging: Xray Plain Films/CT/US/NM/MRI: chest Comments Chest x-ray viewed by me and report reviewed. See report below: NAME: SWAPNIL SMITH [facility] REC#: [id number] PT STATUS: REG ER : 1975 PHYSICIAN: GARETT FLETCHER MD ADMIT DATE: 05/31/18/ER Draft Date of Exam:05/31/18 CHEST 1 VIEW, AP/PA ONLY INDICATION: Chest pain. TIME OF EXAM: 10:14 AM COMPARISON: No prior studies are available for comparison. FINDINGS: The heart size is normal. The pulmonary vascularity is unremarkable. The lungs are clear. No infiltrate, effusion or pneumothorax is detected. IMPRESSION: No acute cardiopulmonary process is detected. Dictated on workstation # [id number] Dict: 05/31/18 1038 Trans: 05/31/18 1039 [facility] [id number] Interpreted by: SUSAN RILEY MD Departure Communication (Admissions) Time/Spoke to Admitting Phy: 12:45 Dr. Kasper Time/Spoke to Consulting Phy: 12:35 Dr. Flynn Impression Primary Impression: Chest pain Qualified Codes: R07.9 - Chest pain, unspecified Disposition: ADMITTED INPATIENT Condition: Stable Admissions Decision to Admit Reason: Admit from ER (General) Decision to Admit/Date: May 31, 2018 Time/Decision to Admit Time: 12:35 Departure-Patient Inst. Referrals: CAITLYN MEJIAS (PCP) Primary Care Physician JASIEL JACOBS (Family) Primary Care Physician GARETT FLETCHER MD May 31, 2018 11:38
[2018-05-31] MEDS ORDERED: morphine INJ 4 MG/ML 1 ML (VIAL/SYRINGE) IVP PRN (14:30)
[2018-05-31] MEDS ORDERED: NITROGLYCERIN 0.4 MG SL TABS BTL 25'S SL PRN (14:30)
--- NOTE | 2018-05-31 14:54 | Consultation-Cardiology ---
HPI-Cardiology Cardiology Consultation: Date of Consultation 05/31/18 Date of Admission Attending Physician Peter Conte MD Admitting Physician Devin Peña Consulting Physician Diane FLYNN MD HPI: Time Seen by Provider: 14:45 Chief Complaint: Chest pain This is a 43-year-old lady with history of morbid obesity and family history of premature CAD. She presents with chest pain which is constant. Radiation to the jaw. Intensity 7/10. No exacerbating or relieving factors. No associated shortness of breath, syncope, near-syncope or palpitations. Review of Systems-Cardiology Review of Systems Constitutional: As described under HPI; No As described under HPI, No no symptoms reported, No chills, No fever, No lightheadedness Eyes: No As described under HPI, No no symptoms reported, No blindness, No blurred vision, No contact lenses, No drainage, No decreased acuity, No foreign body sensation, No pain, No vision change Ears/Nose/Throat: No As described under HPI, No no symptoms reported, No chronic hearing loss, No ear discharge, No ear pain, No nasal drainage, No ulcerations Respiratory: No no symptoms reported; As described under HPI; No As described under HPI, No cough, No orthopnea, No shortness of breath, No SOB with excertion Cardiovascular: No no symptoms reported; As described under HPI; No As described under HPI; chest pain; No edema, No irregular heart rate, No lightheadedness, No palpitations Gastrointestinal: No no symptoms reported, No As described under HPI, No abdomen distended, No abdominal pain, No blood streaked bowels, No constipation , No diarrhea, No nausea, No vomiting, No stool coloration changes Genitourinary: No As described under HPI, No burning, No dysuria, No discharge , No frequency, No flank pain, No hematuria, No urgency : Yes : No Musculoskeletal: No no symptoms reported, No As describe under HPI, No back pain, No gout, No joint pain, No joint swelling, No muscle pain, No muscle stiffness, No neck pain, No other Skin: No no symptoms reported, No As described under HPI, No change in color, No change in hair/nails, No dryness, No lesions, No lumps, No rash, No other, No skin related problems, No ulcerations, No rash on exposed areas, No ulcerations on exposed areas Psychiatric/Neurological: No anxiety, No depression, No seizure, No focal weakness, No syncope Hematologic: No no symptoms reported, No As described under HPI, No anemia, No blood clots, No easy bleeding, No easy bruising, No swollen glands, No other, No bleeding abnormalities CCB-[id number]-Unoeaj Hx Patient Social History Alcohol Use: Denies Use Recreational Drug Use: No Smoking Status: Former Smoker 2nd Hand Smoke Exposure: No Recent Foreign Travel: No Recent Infectious Disease Expo: No Hospitalization with Isolation: Denies Physical Abuse Screen: No Sexual Abuse: No Past Medical History PMH As described under Assessment. Allergies and Home Medications Allergies Coded Allergies: ciprofloxacin (Verified Allergy, Unknown, HIVES, 06/19/17) Home Medications Aspirin 81 Mg Tablet.dr, 81 MG PO DAILY Prescribed by: PETER CONTE on 06/01/181101 Calcium Carbonate/Vitamin D3 1 Each Tablet, 1 TAB PO BID, (Reported) Cyclobenzaprine HCl 10 Mg Tablet, 10 MG PO HS, (Reported) Duloxetine HCl 60 Mg Capsule.dr, 60 MG PO DAILY, (Reported) Duloxetine HCl 30 Mg Capsule.dr, 30 MG PO HS, (Reported) Hydrocodone Bit/Acetaminophen 1 Each Tablet, 1 TAB PO TID PRN for PAIN-MODERATE, (Reported) [place] 3 Polyunsat Fatty Acids 1,000 Mg Cap, 1,000 MG PO BID, (Reported) Pantoprazole Sodium 40 Mg Tablet.dr, 40 MG PO DAILY, (Reported) [Zolpidem Tartrate] 5 MG TAB, 5 MG PO HS Prescribed by: PETER CONTE on 06/01/181101 Patient Home Medication List Home Medication List Reviewed: Yes Physical Exam-Cardiology Physical Exam Vital Signs/I&O 06/01/18 06/01/18 06/01/18 06/01/18 07:00 07:49 11:00 11:42 Pulse 97 96 B/P (MAP) 127/95 (106) O2 Delivery Room Air Room Air 06/01/18 00:00 Intake Total 450 ml Balance 450 ml Capillary Refill : Less Than 3 Seconds Constitutional: appears stated age, AAO x 3; No apparent distress; well- developed, well-nourished HEENT: PERRL; No discharge; hearing is well preserved, oral hygience is good; No ulceration, No xanthelasmas are seen Neck: No carotid bruit; carotid pulses are 2 + bilaterally Respiratory: No accessory muscle use, No respiratory distress, No chest tender , No chest expansion is symmetric; chest is bilaterally symmetric; No lungs clear to percussion; lungs clear to auscultation; No crackles, No rhonchi, No rales, No stridor, No wheezing, No pleural rub, No other Cardiovascular: regular rate-rhythm; No irregularly irregular, No extra beats, No parasternal heave is noted, No JVD, No edema, No bradycardia, No tachycardia , No point of maximal impulse, No cardiac thrills are palpable; S1 and S2; No gallop/S3, No gallop/S4, No diastolic murmur, No systolic murmur, No friction rub, No click, No other Gastrointestinal: No tender, No soft, No round, No distended, No pulsatile mass , No organomegaly, No guarding, No rebound, No tenderness, No hernia, No mass, No audible bowel sounds, No abnormal bowel sounds, No abdominal bruits, No spleenomegaly, No other Rectal: deferred Extremities: No normal range of motion, No non-tender, No normal inspection, No pedal edema, No calf tenderness, No normal capillary refill, No pelvis stable , No calf tenderness, No inflammation, No pedal edema, No slow capillary refill , No swelling, No other, No abrasion, No clubbing, No cyanosis, No ecchymosis, No laceration, No no lower extremity edema bilateral, No significant edema, No tenderness, No wound Neurologic/Psychiatric: no motor/sensory deficits, alert, normal mood/affect, oriented x 3, power is 5/5 both on sides Skin: No normal color, No warm/dry, No cyanosis, No cool, No diaphoresis, No damp, No ecchymosis, No jaundice, No mottled, No pallor, No rash, No tattoos/ piercings, No ulcerations, No rash on exposed areas, No ulcerations on exposed areas, No other Data Review Labs Laboratory Tests 06/01/18 03:15: Triglycerides Level 163H, Cholesterol Level 227H, LDL Cholesterol Direct 180H, VLDL Cholesterol 33, HDL Cholesterol 44 ECG Impression ECG Initial ECG Rhythm: Normal Sinus Initial ECG Impression: Normal A/P-Cardiology Assessment/Admission Diagnosis Chest pain, shortness of breath, Morbid obesity Plan Acute coronary syndrome was ruled out with negative serial troponin. EKG did not show any acute ST-T wave abnormalities. Continue aspirin. Pharmacological nuclear stress test tomorrow and echocardiogram. Diet and exercise was recommended. Thank you for your consultation. Please call me if you have any questions. Selvin Flynn MD, FACP, FACC, FSCAI, FHRS, CCDS Interventional Cardiology Cardiac Electrophysiology Vascular Medicine and Endovascular Interventions Diane FLYNN MD May 31, 2018 14:54
[2018-05-31] MEDS ORDERED: PANT40TA2 PO (15:11)
[2018-05-31] MEDS ORDERED: CALC-6 PO (15:11)
[2018-05-31] MEDS ORDERED: ZOLP10TA5 PO (15:11)
[2018-05-31] MEDS ORDERED: OMG1KC PO (15:11)
[2018-05-31] MEDS ORDERED: DULO30CA3 PO (15:11)
[2018-05-31] MEDS ORDERED: CYCL10TA9 PO (15:12)
[2018-05-31] MEDS ORDERED: DULoxetine 30 MG (CYMBALTA) CAP PO SCH (21:15)
[2018-05-31] MEDS ORDERED: PANTOPRAZOLE 40 MG (PROTONIX) TAB PO ONE ×2 (21:15→21:44)
[2018-05-31] MEDS ORDERED: ZOLPIDEM 5 MG (AMBIEN) TAB PO SCH (21:15)
[2018-05-31] MEDS ORDERED: ZOLPIDEM 5 MG (AMBIEN) TAB ONE (21:44)
[2018-05-31] MEDS ORDERED: DULoxetine 30 MG (CYMBALTA) CAP ONE (21:45)
[2018-06-01] VITALS: BP 125/68
[2018-06-01 04:00] VITALS: BP 122/72
[2018-06-01 04:02] LABS: CHOLESTEROL 227 MG/DL (< 200); HDL CHOLESTEROL 44 MG/DL (40-60); TRIGLYCERIDES 163 MG/DL (<150); VLDL CHOLESTEROL 33 MG/DL (5-40)
[2018-06-01] MEDS ORDERED: CATHETER FLUSH 10 ML SYR IV PRN (07:15)
[2018-06-01] MEDS ORDERED: ASPIRIN E.C. 81 MG (ECOTRIN) TAB PO SCH (09:00)
[2018-06-01] MEDS ORDERED: REGADENOSON 0.4 MG/5 ML SYR (LEXISCAN) IV ONE (09:30)
--- NOTE | 2018-06-01 10:27 | Cardiology Progress Note ---
Cardiology SOAP Progress Note Subjective: No further chest pain Objective: I&O/Vital Signs 06/01/18 06/01/18 06/01/18 06/01/18 07:00 07:49 11:00 11:42 Pulse 97 96 B/P (MAP) 127/95 (106) O2 Delivery Room Air Room Air 06/01/18 00:00 Intake Total 450 ml Balance 450 ml Weight (Pounds): 290 Weight (Ounces): 0.0 Weight (Calculated Kilograms): [id number] Constitutional: AAO x 3 Respiratory: No accessory muscle use, No respiratory distress, No chest tender , No chest expansion is symmetric; chest is bilaterally symmetric; No lungs clear to percussion; lungs clear to auscultation; No crackles, No rhonchi, No rales, No stridor, No wheezing, No pleural rub, No other Cardiovascular: regular rate-rhythm; No irregularly irregular, No extra beats, No parasternal heave is noted, No JVD, No edema, No bradycardia, No tachycardia , No point of maximal impulse, No cardiac thrills are palpable; S1 and S2; No gallop/S3, No gallop/S4, No diastolic murmur, No systolic murmur, No friction rub, No click, No other Gastrointestional: No tender, No soft, No round, No distended, No pulsatile mass, No organomegaly, No guarding, No rebound, No tenderness, No hernia, No mass, No audible bowel sounds, No abnormal bowel sounds, No abdominal bruits, No spleenomegaly, No other Extremities: No normal range of motion, No non-tender, No normal inspection, No pedal edema, No calf tenderness, No normal capillary refill, No pelvis stable , No calf tenderness, No inflammation, No pedal edema, No slow capillary refill , No swelling, No other, No abrasion, No clubbing, No cyanosis, No ecchymosis, No laceration, No no lower extremity edema bilateral, No significant edema, No tenderness, No wound Neurologic/Psychiatric: no motor/sensory deficits, alert, normal mood/affect, oriented x 3 Skin: No normal color, No warm/dry, No cyanosis, No cool, No diaphoresis, No damp, No ecchymosis, No jaundice, No mottled, No pallor, No rash, No tattoos/ piercings, No ulcerations, No rash on exposed areas, No ulcerations on exposed areas, No other Results/Procedures: Labs Laboratory Tests 06/01/18 03:15: Triglycerides Level 163H, Cholesterol Level 227H, LDL Cholesterol Direct 180H, VLDL Cholesterol 33, HDL Cholesterol 44 A/P: Assessment/Dx: Chest pain, shortness of breath, Morbid obesity Plan: Acute coronary syndrome ruled out with negative serial troponin. Pharmacological stress test today. Echocardiogram pending. Shortness of breath: No congestive heart failure on examination. Obesity: Diet and exercise recommended. Thank you for your consultation. Please call me if you have any questions. Selvin Flynn MD, FACP, FACC, FSCAI, FHRS, CCDS Interventional Cardiology Cardiac Electrophysiology Vascular Medicine and Endovascular Interventions Diane FLYNN MD Jun 01, 2018 10:27
[2018-06-01 11:00] VITALS: BP 127/95
--- NOTE | 2018-06-01 11:01 | Short Stay Summary ---
History of Present Illness History of Present Illness Reason for visit/HPI 43 yo F that presented to Walk in care at [facility] after having left sided neck and arm pain. States that it lasted about 45 mins and then went away on its own. States that she did not take anything when she had the pain. She was laying down when the pain started and was associated with headache. States that she was just diagnosed with KATY and her CPAP is on its way to get delivered to her house. Denies any previous similar symptoms. Denies any previous heart problems. States that her maternal grandmother had heart attack in her 40s but otherwise not first degree relatives. Chest pain has resolve this AM. She has not had any return of symptoms since initial onset. Date of Admission May 31, 2018 at 12:45 pm Date of Discharge 06/01/2018 Time Seen by Provider: 07:05 Attending Physician Peter Conte MD Admitting Physician Devin Peña Consult Allergies and Home Medications Allergies Coded Allergies: ciprofloxacin (Verified Allergy, Unknown, HIVES, 06/19/17) Home Medications Aspirin 81 Mg Tablet.dr, 81 MG PO DAILY Prescribed by: PETER CONTE on 06/01/18 1102 Calcium Carbonate/Vitamin D3 1 Each Tablet, 1 TAB PO BID, (Reported) Cyclobenzaprine HCl 10 Mg Tablet, 10 MG PO HS, (Reported) Duloxetine HCl 60 Mg Capsule.dr, 60 MG PO DAILY, (Reported) Duloxetine HCl 30 Mg Capsule.dr, 30 MG PO HS, (Reported) Hydrocodone Bit/Acetaminophen 1 Each Tablet, 1 TAB PO TID PRN for PAIN-MODERATE, (Reported) [place] 3 Polyunsat Fatty Acids 1,000 Mg Cap, 1,000 MG PO BID, (Reported) Pantoprazole Sodium 40 Mg Tablet.dr, 40 MG PO DAILY, (Reported) [Zolpidem Tartrate] 5 MG TAB, 5 MG PO HS Prescribed by: PETER CONTE on 06/01/18 1102 Patient Home Medication List Home Medication List Reviewed: Yes Past Giugthz-Eczosy-Tcawck Hx Patient Social History Living Status: Lives at home independently Alcohol Use: Denies Use Recreational Drug Use: No Smoking Status: Former Smoker Former Smoker, Quit: Jun 19, 2014 2nd Hand Smoke Exposure: No Physical Abuse Screen: No Sexual Abuse: No Recent Foreign Travel: No Contact w/other who traveled: No Recent Hopitalizations: No Recent Infectious Disease Expo: No Seasonal Allergies Seasonal Allergies: Yes (MILD) Surgeries Yes Hysterectomy, 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 Respiratory Yes Sleep Apnea Currently Using CPAP: No (but has one on the way) Cardiovascular No Neurological No Reproductive System : No Hx Reproductive Disorders: No 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, 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 Genitourinary No Gastrointestinal Yes (IBS) Gastroesophageal Reflux Musculoskeletal No Endocrine History of Endocrine Disorders: No HEENT History of HEENT Disorders: No Cancer No Psychosocial History of Psychiatric Problem: Yes Behavioral Health Disorders: Anxiety, Depression Integumentary History of Skin or Integumenta: No Skin/Integumentary Disorders: Eczema Blood Transfusions History of Blood Disorders: No Family Medical History Significant Family History: Cancer (lung cancer in her mother), GI Disease ( Son has CHAN) Constitutional: no symptoms reported; No chills, No fever, No malaise, No weakness EENTM: other (jaw pain initially that has resolved) Respiratory: no symptoms reported; No dyspnea on exertion, No orthopnea, No short of breath Cardiovascular: chest pain (resolved); No edema, No palpitations Gastrointestinal: no symptoms reported; No abdominal pain, No constipation, No diarrhea, No nausea, No vomiting Genitourinary: no symptoms reported; No dysuria, No frequency, No hematuria : No Musculoskeletal: other (left arm pain) Skin: no symptoms reported Psychiatric/Neurological: No Symptoms Reported Physical Exam Vital Signs Vital Signs - First Documented 05/31/18 09:40 Temp 98.2 Pulse 92 Resp 18 B/P (MAP) 113/83 (93) Pulse Ox 95 O2 Delivery Room Air Capillary Refill : Less Than 3 Seconds Height, Weight, BMI Height: 5'9.00" Weight: 290lbs. 0.0oz. [id number]; 42.8 BMI Method:Stated General Appearance: No Apparent Distress, WD/WN HEENT: PERRL/EOMI Neck: Full Range of Motion, Supple Respiratory: Chest Non Tender, Lungs Clear, Normal Breath Sounds, No Accessory Muscle Use, No Respiratory Distress Cardiovascular: Regular Rate, Rhythm, No Edema, No Murmur, Normal Peripheral Pulses Gastrointestinal: Normal Bowel Sounds, No Organomegaly, Non Tender, Soft Clinical Quality Measures DVT/VTE Risk/Contraindication: Risk Factor Score Per Nursin RFS Level Per Nursing on Admit: 2=Moderate Short Stay Diagnosis Discharge Diagnosis-Short Stay Admission Diagnosis: Atypical Chest pain Shortness of breath Morbid Obesity HLD Final Discharge Diagnosis: See Above Conclusion Labs Laboratory Tests 05/31/18 16:30: Troponin I < 0.30 06/01/18 03:15: Triglycerides Level 163H, Cholesterol Level 227H, LDL Cholesterol Direct 180H, VLDL Cholesterol 33, HDL Cholesterol 44 Conclusion/Plan 43 yo F that was admitted for observation following episode of chest pain with shortness of breath for CAD rule out Plan Atypical Chest pain: Cardiology was consulted. Patient had normal Echo and Stress testing prior to discharge as well as normal serial troponin. Shortness of breath: Resolved Morbid Obesity: discussed the importance of weight loss HLD: Elevated lipid panel. Patient was discharged home after CAD rule out with close follow up with PCP Copy Copies To 1: BRIONNA MORENO MD, HOLLY R MD Jun 01, 2018 11:01
[2018-06-01] MEDS ORDERED: Zolpidem Tartrate PO (11:02)
[2018-06-01] MEDS ORDERED: ASPI-983 PO (11:02)
--- NOTE | 2018-06-01 11:06 | Discharge Instructions ---
Discharge Inst-[facility] Discharge Medications New, Converted or Re-Newed RX: Other New Medications: Aspirin (Aspirin EC) 81 Mg Tablet.dr 81 MG PO DAILY, #30 TAB [Zolpidem Tartrate] () 5 MG TAB 5 MG PO HS for 30 Days, TAB Continued Medications: Calcium Carbonate/Vitamin D3 (Calcium 600 + Vit D 200 Tablet) 1 Each Tablet 1 TAB PO BID, TAB Cyclobenzaprine HCl (Cyclobenzaprine HCl) 10 Mg Tablet 10 MG PO HS, TAB Duloxetine HCl (Cymbalta) 60 Mg Capsule.dr 60 MG PO DAILY, CAP Duloxetine HCl (Cymbalta) 30 Mg Capsule.dr 30 MG PO HS, CAP Hydrocodone Bit/Acetaminophen (Lortab 7.5 Mg Tablet) 1 Each Tablet 1 TAB PO TID PRN for PAIN-MODERATE, TAB [place] 3 Polyunsat Fatty Acids (Fish Oil 1,000 mg Capsule) 1,000 Mg Cap 1000 MG PO BID, CAP Pantoprazole Sodium (Protonix) 40 Mg Tablet.dr 40 MG PO DAILY, TAB Patient Instructions Goal/Follow Up Appt: June 07 @ 1140 AM with Dwaine Peña for hospital follow up Patient Instructions: - Decreased ambien dose because 5 mg is the recommended dose for women - Focus on weight loss - It is important for you to wear you CPAP daily when you recieve it Return to The Hospital For: - Chest pain - Shortness of breath Activity & Diet Discharge Diet: Cardiac Diet Activity as Tolerated: Yes Copy Copies To 1: [facility] PETER Moseley MD Jun 01, 2018 11:06 am
[2018-06-01 16:21] VITALS: BP 125/91
--- NOTE | 2018-06-01 16:21 | Cardiology Stress Test Report ---
Stress Test Report Type of NM Stress Test: Test Type: LEXISCAN 0.4MG/5ML Date of Procedure/Referring: Date of Procedure: Jun 01, 2018 PCP Ashley Kasper MD Admitting Physician Devin Peña Indications: Chest pain Baseline Heart Rate: 91 Baseline Blood Pressure: Blood Pressure Systolic: 125 Blood Pressure Diastolic: 91 Baseline EKG: Baseline EKG: sinus rhythm Summary: The patient was brought to the stress lab after informed consent was taken. Stress test was performed according to the Lexiscan protocol. 0.4 mg of IV Lexiscan was given. Low-grade exercise was performed. Baseline EKG showed sinus rhythm at 91BPM. Initial blood pressure was 125/91mmHg. Maximum heart rate was 94 bpm and blood pressure 122/69 mmHg. Patient did not have any chest pain, arrhythmias or ST segment changes during the stress test. 10.24 mCi of Myoview were given for rest imaging and 30.2 mCi of Myoview given for stress imaging. Transient ischemic dilatation score 1.06 , EF 80 percent. Normal wall motion.Significant breast attenuation was noted. Otherwise normal myocardial perfusion imaging. Conclusion: Pharmacological stress test was negative for ischemia. Normal LV function with no wall motion abnormalities. Significant breast attenuation was noted. However myocardial perfusion image was normal. Clinical correlation is recommended. Diane ROMANO MD Jun 01, 2018 16:21
== END 2018-06-01 11:03 | disposition home or self-care (01) ==
LOC: EDUNIT# 09:37 → ER 09:39 → UNDOADMOB 12:45 → ICU 12:45 → UNDODISOB 06-01 11:42
PROVIDERS: ADMIT Family Medicine; ATTEND Family Medicine
DX: R07.9 Chest pain, unspecified (principal); R06.02 Shortness of breath; F41.9 Anxiety disorder, unspecified; F32.9 Major depressive disorder, single episode, unspecified; G47.33 Obstructive sleep apnea (adult) (pediatric); K21.9 Gastro-esophageal reflux disease without esophagitis; K58.9 Irritable bowel syndrome, unspecified; E66.01 Morbid (severe) obesity due to excess calories; Z82.49 Family history of ischemic heart disease and other diseases of the circulatory system; Z87.891 Personal history of nicotine dependence; Z68.41 Body mass index [BMI] 40.0-44.9, adult
CPT/HCPCS: 36415; 71045; 78452; 80053; 80061; 83735; 83874; 84484; 85025; 85379; 85610; 85730; 93005; 93017; 93041; 93306